=== PATIENT | male | born 1965 | race African-American/Black ===

== ENCOUNTER 2016-09-15 21:17 | Emergency (ER) | payer OTHER ==
[2016-09-15 21:22] VITALS: TEMP 97.3
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
[2016-09-16 06:15] VITALS: BP 138/77; PULSE 90; RESP 18; O2SAT 96
== END 2016-09-16 06:17 | disposition home or self-care (01) ==
DX: F10.120 Alcohol abuse with intoxication, uncomplicated (principal); F17.200 Nicotine dependence, unspecified, uncomplicated

== ENCOUNTER 2016-10-20 22:18 | Emergency (ER) | payer OTHER ==
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
[2016-10-20 22:23] VITALS: RESP 14
[2016-10-20 22:37] VITALS: BP 128/78; PULSE 70; TEMP 98.4; O2SAT 94
== END 2016-10-20 22:38 | disposition home or self-care (01) ==
DX: F10.99 Alcohol use, unspecified with unspecified alcohol-induced disorder (principal); F17.200 Nicotine dependence, unspecified, uncomplicated

== ENCOUNTER 2017-02-25 20:15 | Emergency (ER) | payer MEDICAID, OTHER ==
[2017-02-25 20:21] VITALS: TEMP 99
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
[2017-02-26 04:20] VITALS: BP 115/86; PULSE 91; RESP 16; O2SAT 94
== END 2017-02-26 04:19 | disposition home or self-care (01) ==
DX: F10.120 Alcohol abuse with intoxication, uncomplicated (principal)
CPT/HCPCS: 82947-QW

== ENCOUNTER 2017-03-04 20:43 | Emergency (ER) | payer MEDICAID ==
[2017-03-04 20:51] VITALS: BP 147/100; PULSE 102; RESP 20; TEMP 98.2; O2SAT 96
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
== END 2017-03-04 21:40 | disposition home or self-care (01) ==
LOC: EDUNIT#
DX: S80.02XA Contusion of left knee, initial encounter (principal); F17.200 Nicotine dependence, unspecified, uncomplicated; W21.11XA Struck by baseball bat, initial encounter

== ENCOUNTER 2017-05-31 17:14 | Emergency (ER) | payer OTHER, MEDICAID ==
[2017-05-31 17:22] VITALS: BP 128/77; PULSE 80; RESP 18; TEMP 98.8; O2SAT 95
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
== END 2017-05-31 17:30 | disposition home or self-care (01) ==
PROC: 0HQ0XZZ Repair Scalp Skin, External Approach (ICD-10-PCS; principal; 2017-05-31)
DX: S01.01XA Laceration without foreign body of scalp, initial encounter (principal); F10.920 Alcohol use, unspecified with intoxication, uncomplicated; F17.200 Nicotine dependence, unspecified, uncomplicated; Y04.0XXA Assault by unarmed brawl or fight, initial encounter

== ENCOUNTER 2017-08-08 06:11 | Inpatient (IN) | payer OTHER, MEDICAID ==
[2017-08-08] MEDS ORDERED: NS 500 ML IV ONE (06:30)
[2017-08-08] MEDS ORDERED: ONDANSETRON 4 MG/2 ML VIAL IVP ONE (06:30)
[2017-08-08] MEDS ORDERED: FAMOTIDINE 20 MG/NACL 50 ML IV ONE (06:30)
[2017-08-08] MEDS ORDERED: MAG HYDROX/AL HYDROX/SIMETH 30 ML UDCUP PO ONE (06:31)
[2017-08-08] MEDS ORDERED: NS 1,000 ML IV ONE (06:35)
--- NOTE | 2017-08-08 06:35 | EDPHY ---
H & P Stated Complaint: EPIGASTRIC PAIN INCREASED WITH SWALLOWING AFTER DRINKING 4 BEERS 2 DAYS AGO Source: Patient Exam Limitations: No limitations - Personal History Current Tetanus/Diphtheria Vaccine: Yes Current Tetanus Diphtheria and Acellular Pertussis (TDAP): Yes Tetanus Vaccine Date: 2011 - Medical/Surgical History Hx Asthma: No Hx Chronic Respiratory Disease: No Hx Diabetes: No Hx Cardiac Disease: No Hx Renal Disease: No Hx Cirrhosis: No Hx Alcoholism: Yes Hx HIV/AIDS: No Hx Splenectomy or Spleen Trauma: No Other PMH: PMHx: alcoholism, w/d seizures , DVT, GERD, thought disorder, ECT. PSHx: ACL tear, 2 LUMBAR DISCS REMOVED, R T/F fracture - Social History Smoking Status: Light smoker Time Seen by Provider: 08/08/17 06:24 HPI/ROS: HPI The patient presents with epigastric abdominal pain has been present for the last 2 days and began after drinking multiple beers. He says he has not had a drink in about 3 months and his pain started shortly after this. The pain is a throbbing sensation which radiates toward his sternum and is worse when lying down, swallowing, coughing. He took Pepto-Bismol without any improvement in his symptoms. He does not have any nausea or vomiting. He does not have any dark or bloody stools. REVIEW OF SYSTEMS Constitutional: No fever, no chills. Eyes: No discharge. ENT: No sore throat. Cardiovascular: No chest pain, no palpitations. Respiratory: No cough, no shortness of breath. Gastrointestinal: See HPI Genitourinary: No hematuria. Musculoskeletal: No back pain. Skin: No rashes. Neurological: No headache. PMHx: History of GERD Soc Hx: History of alcohol use PHYSICAL General Appearance: Alert, no distress Eyes: Pupils equal and round no pallor or injection ENT, Mouth: Mucous membranes moist Respiratory: There are no retractions, lungs are clear to auscultation Cardiovascular: Regular rate and rhythm Gastrointestinal: Abdomen is soft with epigastric tenderness, no masses, bowel sounds normal Neurological: A&O, moves all extremities Skin: Warm and dry, no rashes Musculoskeletal: Neck is supple non tender Extremities: symmetrical, full range of motion Psychiatric: Patient is oriented X 3, there is no agitation (Riguzzi,Halima) Constitutional: Initial Vital Signs Temperature (C) 36.7 C 08/08/17 06:13 Heart Rate 133 H 08/08/17 06:13 Respiratory Rate 18 08/08/17 06:13 Blood Pressure 120/100 H 08/08/17 06:13 O2 Sat (%) 97 08/08/17 06:13 O2 Delivery Mode Room Air Allergies/Adverse Reactions: Sulfa (Sulfonamide Antibiotics) Allergy (Unknown, Verified 08/08/17 06:16) Rash tetracycline [Tetracycline] Allergy (Unknown, Verified 08/08/17 06:16) Rash melon Allergy (Verified 08/08/17 06:16) Tingling of mouth/throat watermelon Allergy (Verified 08/08/17 06:16) Tingling of mouth/throat Home Medications: Medication Instructions Recorded Metoprolol Succinate Xr [Toprol Xl 50 mg PO DAILY 02/15/16 50 mg (*)] Amitriptyline HCl [Elavil 50 mg 50 mg PO HS 08/08/17 (*)] Aspirin [Aspirin 81mg (*)] 81 mg PO DAILY 08/08/17 FLUoxetine [Prozac 20 MG (*)] 20 mg PO DAILY 08/08/17 Tamsulosin HCl [Flomax 0.4 MG (*)] 0.4 mg PO DAILY 08/08/17 hydrOXYzine HCL [hydrOXYzine HCL 25 mg PO BID 08/08/17 (RX)] Medical Decision Making - Diagnostics Imaging Results: Imaging Impressions Chest X-Ray 08/08/17 06:24 Impression: Elevation of the left diaphragm, slightly more pronounced than on comparison exam, and left greater than right airspace opacities which may represent atelectasis. Chest/Thorax CTA 08/08/17 08:15 Impression: 1. No definite pulmonary thromboemboli. 2. Patchy bilateral lower lobe and lingular acute pneumonia. 3. No pleural effusion or pneumothorax. 4. Moderate hiatal hernia. Consider follow up upper endoscopy. Findings and recommendations discussed with Emergency Department physician, Marisa Joseph, at 0922 hours on August 08, 2017. Final report concurs with initial preliminary interpretation. A test result has been communicated to a licensed care provider and documented in the [employer] Critical Result system on 08/08/2017 9:22, Message ID [id number]. ED Course/Re-evaluation: 730: The patient is signed out to me at change of shift by Dr. Cavazos. I reviewed the patient's laboratory studies. His white count was 10. His hematocrit was normal. LFTs and lipase normal. The patient's troponin was negative. Chest x-ray: No pneumothorax. Normal mediastinum. No pneumomediastinum. 805: I when re-evaluated the patient. Of note, when I came in the room his heart rate was 125. The patient appeared fairly uncomfortable. He states he continues to have epigastric pain. It is worse when he swallows. On exam he had clear breath sounds bilaterally with epigastric tenderness to palpation. No rebound or guarding. Based on the patient's presentation, ongoing tachycardia, and physical exam findings I feel the patient needs observation. He was given a repeat dose of pain medication. I have considered alcohol withdrawal. The patient has no tremor or tongue lag. However, the patient is tachycardic and reports drinking alcohol. He will be given Ativan 1 mg IV. I was concerned with his tachycardia and epigastric pain. A CT with IV contrast was ordered. I discussed the case with the hospitalist service. Patient will be admitted by Dr. Mrecado. They will consult GI if needed. I discussed this plan with the patient. I answered all his questions. 932: CT angio chest: Please refer the dictated report by Dr. Lemus. The patient has a lingular infiltrate. There is also bilateral lower lobe infiltrates. Patient has a moderate hiatal hernia. Based on these findings I paged the hospitalist service to update them on the patient's condition. Patient has been noted to be tachycardic while here. A lactic acid was ordered. Blood cultures were ordered. The patient was given Levaquin 750 mg IV. Patient was given additional normal saline 500 mL IV. I discussed the findings with the patient. I answered all his questions. ( Marisa Joseph) Differential Diagnosis: This is a 51-year-old male with history of GERD who presents epigastric pain which radiates toward his sternum for the last 2 days after drinking several beers. Differential diagnosis includes ACS, gastritis, GERD, pancreatitis. In the emergency department, basic labs were ordered for the patient. He was given IV fluids and GI cocktail, famotidine, Zofran. The patient's labs were relatively unremarkable, showing mild dehydration, troponin is pending at change of shift. He is feeling some better after receiving medications. He still tachycardic at about 115. He does not have any hand tremor and says he had 4 beers only. He does not appear to be in alcohol withdrawal. Anticipate he will be able to be discharged home when his symptoms resolved. The case signed out to the oncoming provider Dr. Joseph pending reassessment. ( Halima Cavazos) - Data Points Laboratory Results: Laboratory Results 08/08/17 06:40 08/08/17 06:40 08/08/17 08/08/17 06:40 06:40 WBC 15.20 10^3/uL H 10^3/uL (3.80-9.50) RBC 5.64 10^6/uL 10^6/uL (4.40-6.38) Hgb 17.7 g/dL H g/dL (13.7-17.5) Hct 48.7 % % (40.0-51.0) MCV 86.3 fL fL (81.5-99.8) MCH 31.4 pg pg (27.9-34.1) MCHC 36.3 g/dL g/dL (32.4-36.7) RDW 12.3 % % (11.5-15.2) Plt Count 300 10^3/uL 10^3/uL (150-400) MPV 10.0 fL fL (8.7-11.7) Neut % (Auto) 72.2 % % (39.3-74.2) Lymph % (Auto) 19.8 % % (15.0-45.0) [place] % (Auto) 7.0 % % (4.5-13.0) Eos % (Auto) 0.3 % L % (0.6-7.6) Baso % (Auto) 0.3 % % (0.3-1.7) Nucleat RBC Rel Count 0.0 % % (0.0-0.2) Absolute Neuts (auto) 10.97 10^3/uL H 10^3/uL (1.70-6.50) Absolute Lymphs (auto) 3.01 10^3/uL H 10^3/uL (1.00-3.00) Absolute Monos (auto) 1.07 10^3/uL H 10^3/uL (0.30-0.80) Absolute Eos (auto) 0.05 10^3/uL 10^3/uL (0.03-0.40) Absolute Basos (auto) 0.04 10^3/uL 10^3/uL (0.02-0.10) Absolute Nucleated RBC 0.00 10^3/uL 10^3/uL (0-0.01) Immature Gran % 0.4 % % (0.0-1.1) Immature Gran # 0.06 10^3/uL 10^3/uL (0.00-0.10) Sodium 139 mEq/L mEq/L (134-144) Potassium 4.1 mEq/L mEq/L (3.5-5.2) Chloride 104 mEq/L mEq/L (97-110) Carbon Dioxide 21 mEq/l L mEq/l (22-31) Anion Gap 14 mEq/L mEq/L (8-16) BUN 9 mg/dL mg/dL (7-23) Creatinine 1.1 mg/dL mg/dL (0.7-1.3) Estimated GFR > 60 Glucose 122 mg/dL H mg/dL (70-100) Calcium 9.4 mg/dL mg/dL (8.5-10.4) Troponin I 0.014 ng/mL ng/mL (0.000-0.034) Lipase 60 IU/L IU/L (23-300) Medications Given: Discontinued Medications Al Hydroxide/Mg Hydroxide (Maalox Susp) 30 ml PO EDNOW ONE Stop: 08/08/17 06:32 Last Admin: 08/08/17 06:50 Dose: 30 ml Dicyclomine HCl (Bentyl) 20 mg PO EDNOW ONE Stop: 08/08/17 07:22 Last Admin: 08/08/17 07:26 Dose: 20 mg Sodium Chloride (Ns) 500 mls @ 1,000 mls/hr IV EDNOW ONE PRN Reason: Protocol Stop: 08/08/17 06:59 Last Admin: 08/08/17 07:00 Dose: Not Given Famotidine/Sodium Chloride (Pepcid 20 Mg (Premix)) 50 mls @ 200 mls/hr IV EDNOW ONE Stop: 08/08/17 06:44 Last Admin: 08/08/17 06:50 Dose: 50 mls Sodium Chloride (Ns) 1,000 mls @ 0 mls/hr IV EDNOW ONE; Wide Open PRN Reason: Protocol Stop: 08/08/17 06:36 Last Admin: 08/08/17 06:51 Dose: 1,000 mls Lorazepam (Ativan Injection) 1 mg IVP EDNOW ONE Stop: 08/08/17 06:38 Last Admin: 08/08/17 06:50 Dose: 1 mg Lorazepam (Ativan Injection) 1 mg IVP EDNOW ONE Stop: 08/08/17 08:20 Last Admin: 08/08/17 08:26 Dose: 1 mg Morphine Sulfate (Morphine) 4 mg IVP EDNOW ONE Stop: 08/08/17 08:19 Last Admin: 08/08/17 08:26 Dose: 4 mg Ondansetron HCl (Zofran) 4 mg IVP EDNOW ONE Stop: 08/08/17 06:31 Last Admin: 08/08/17 06:50 Dose: 4 mg Departure - Departure Clinical Impression: Abdominal pain, Dyspepsia, Tachycardia, Epigastric pain Pneumonia Qualifiers: Pneumonia type: due to unspecified organism Laterality: left Condition: Good
[2017-08-08] MEDS ORDERED: LORazepam 2 MG/ML INJ IVP ONE ×2 (06:37→08:19)
[2017-08-08 06:49] LABS: % IMMATURE GRANULYOCYTES 0.4 % (0.0-1.1); ABSOLUTE IMMATURE GRANULOCYTES 0.06 10^3/uL (0.00-0.10); ADD DIFF? NO; ADD MORPH? NO; ADD SCAN? NO; ATYPICAL LYMPHOCYTE FLAG 0 (0-99); FRAGMENT RBC FLAG 0 (0-99); HEMATOCRIT 48.7 % (40.0-51.0); HEMOGLOBIN 17.7 g/dL (13.7-17.5); LEFT SHIFT FLG 0 (0-99); LIPEMIA HEMOLYSIS FLAG 90 (0-99); MEAN CELL HEMOGLOBIN 31.4 pg (27.9-34.1); MEAN CELL HEMOGLOBIN CONCENTR. 36.3 g/dL (32.4-36.7); MEAN CELL VOLUME 86.3 fL (81.5-99.8); PLATELET CLUMPS FLAG 0 (0-99); PLATELET COUNT 300 10^3/uL (150-400); RED BLOOD CELL COUNT 5.64 10^6/uL (4.40-6.38); RED CELL DISTRIBUTION WIDTH 12.3 % (11.5-15.2)
[2017-08-08 07:08] LABS: ANION GAP 14 mEq/L (8-16); CALCIUM 9.4 mg/dL (8.5-10.4); CARBON DIOXIDE 21 mEq/l (22-31); CHLORIDE 104 mEq/L (97-110); CREATININE 1.1 mg/dL (0.7-1.3); GLOMERULAR FILTRATION RATE > 60; GLUCOSE 122 mg/dL (70-100); POTASSIUM 4.1 mEq/L (3.5-5.2); SODIUM 139 mEq/L (134-144)
[2017-08-08 07:20] LABS: TROPONIN I 0.014 ng/mL (0.000-0.034)
[2017-08-08] MEDS ORDERED: DICYCLOMINE 10 MG CAP PO ONE (07:21)
--- NOTE | 2017-08-08 07:38 | CPEKG ---
Heart Rate: 133 RR Interval: 451 P-R Interval: 82 QRSD Interval: 86 QT Interval: 316 QTC Interval: 471 P [place]: 0 QRS [place]: 100 T Wave [place]: 41 EKG Severity - ABNORMAL ECG - EKG Impression: SINUS TACHYCARDIA EKG Impression: LEFT ATRIAL ABNORMALITY EKG Impression: RIGHT AXIS DEVIATION Electronically Signed By: Halima Cavazos 08-Aug-2017 07:40:14
[2017-08-08] MEDS ORDERED: IOPAMIDOL (ISOVUE 370) 100 ML BTL IV ONE (08:37)
[2017-08-08] MEDS ORDERED: ONDANSETRON 4 MG/2 ML VIAL IVP PRN (11:56)
[2017-08-08] MEDS ORDERED: ONDANSETRON DISINTEGRATING 4 MG TAB PO PRN (11:56)
[2017-08-08] MEDS ORDERED: ZOLPIDEM TARTRATE 5 MG TAB PO PRN (11:56)
[2017-08-08] MEDS: PANTOPRAZOLE SODIUM 40 MG VIAL IVP SCH ×2 (12:27→22:02)
[2017-08-08] MEDS: NS 1,000 ML IV SCH ×2 (12:27→22:01)
[2017-08-08] MEDS: METOPROLOL SUCCINATE XR 50 MG TAB PO SCH (12:29)
[2017-08-08] MEDS: FLUoxetine 20 MG CAP PO SCH (12:29)
[2017-08-08] MEDS: HYDROmorphONE/DILAUDID 1 MG/ML INJ IVP PRN (12:40)
--- NOTE | 2017-08-08 13:42 | PDGENHP ---
History and Physical History and Physical: CC: Epigastric pain HISTORY: This patient with a long history of intermittent reflux esophageal heartburn states that around 3 days ago he went for a long run and afterwards he drank 4 beers in rapid succession. Later that night he had onset of severe epigastric pain which is persistent now in getting worse, and is aggravated with swallowing of any food or liquid. The pain is felt in the epigastrium and comes up into the low substernal area and is felt as a burning and sharp pain. There is no cough, shortness of breath, angina-like component, back pain, nausea or vomiting, fever, leg pain or swelling. He is not using any acid reducing medicine. In the past he has found that antacids are somewhat helpful with his recurrent heartburn symptoms. In the ER there was concern about PE saw the patient has CT scan that was negative for PE. The CT scan does show a hiatal hernia. Also the CT scan shows some alveolar density in the dependent portions of both lungs. ROS: The patient mentions that 2 days ago during urination while standing he became lightheaded. He was concerned it might be caused by his blood pressure medicine so he stopped taking his beta-shannan and DEBBIE-inhibitor at that time. 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 Smokes occasional cigarettes and occasional marijuana. Intermittent heavy drinking. No street drugs or IV drug use. MEDICATIONS: The patients list has been reconciled by our clinical pharmacist in the EMR. I have reviewed the list and ordered appropriate medicines. PHYSICAL EXAMINATION: Vital Signs: Tachycardic with pulse 115+/-, sinus rhythm on monitor, stable blood pressure respirations and no fever Medical Billing Manager: Sinus tachycardia Examination: General: alert, oriented, good mentation, appears quite uncomfortable Skin: warm, dry, good color, no rash HEENT: normal Neck: no mass or jvd Resps: relaxed Lungs: clear breath sounds though his respirations are shallow and inhibited by an increase in his epigastric pain with inspiration Heart: regular, no murmur Abdomen: soft, nondistended, nontender, +BS, no mass Upper Extremities: normal Lower Extremities: no edema, warm No Bleeding or bruising Neurologic: normal speech/language, 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 There is some alveolar density in dependent portions of the lungs that are most suggestive to me of atelectasis. There are no air bronchograms or other specific features to suggest pneumonia. There is presence of a hiatal hernia. 12 LEAD EKG: My personal interpretation of the tracing: Sinus tachycardia, right axis deviation otherwise no abnormalities ASSESSMENT: -severe epigastric and low substernal pain with swallowing # I believe this is most likely due to a severe acute esophagitis or esophageal ulceration, most likely peptic in etiology but should be assessed further -tachycardia, sinus # I suspect this is primarily caused by a beta-shannan rebound since he stopped his metoprolol 2 days ago, aggravated by his degree of pain -chronic intermittent alcohol abuse # most likely at low risk of withdrawal but will follow closely # some risk of thiamine deficiency -prior history of provoked DVT, at least moderately high risk of recurrent DVT here in the setting -a diagnosis of pneumonia was considered in the emergency room and the patient was given a dose of Levaquin; at this time I do not think the patient has pneumonia PLANS: -IV twice daily proton pump inhibitor -4 times daily Carafate -will consult Gastroenterology to see the patient -at this time my suspicion for pneumonia is quite low and I will not continue antibiotics and less something changes to make me of higher suspicion for this. I have ordered a procalcitonin and respiratory pathogen panel; given the presentation I think a negative test for either of these would be more helpful than a positive test particularly the procalcitonin I have reviewed the patient's case in detail with Dr. Joseph I have reviewed the patient's past medical records as part of this assessment, including previous hospital admission records
[2017-08-08] MEDS: SUCRALFATE 1 GM/10 ML UDCUP PO SCH ×3 (14:41→21:59)
--- NOTE | 2017-08-08 14:41 | ASMTCMCOM ---
CM Note CM Note Notes: 08/08/2017 Case Management Note Met w/pt. Pt reports recent stay in care home for approximately 3 months. Reports "bonded out 2 or 3 days ago", ran to a gas station, drank a 4 beers "to get in the right mind set to sleep" and experienced epigastric pain. Bought Pepto Bismol the next day and consumed half a bottle and came to the ED. Pt reports a court date of . When asked about housing at d/c pt offered that he wanted to move to [facility] near his sister Stefania. He did not have her phone number and has not been in contact with her since prior to his recent time in care home. He is . Pt requested information on alcohol resident treatment centers. Provided info on centers that accept Medicaid. 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 Pt also planned for a stay in SNF rehab d/t possible surgery. Informed pt that PT needs to evaluate to ascertain if that level of care is required. Pt has Medicaid and will need a ULTC 100 and commit to a 30 day stay if SNF level of care is necessary. Pt reports history of Bipolar and Schizophrenia. Pt unable to recall name of psychiatrist or counselor but offerred that he goes to the [facility] for medications. Case Management d/c poc: To the homeless care home with information for inpt drug rehab and [facility]. Case Management to follow for further needs. Date Signed: 08/08/2017 02:41 PM Electronically Signed By:Sara Ferris RN
--- NOTE | 2017-08-08 14:53 | PDMN ---
Medical Necessity Medical necessity: Pt meets IP criteria per MD; est los >2 mn for eval/tx of severe epigastric & low substernal pain w/swallowing & tachycardia, admit for IV proton pump inhibitors & GI consult; hx esophageal reflux & heartburn, seizure disorder, DVTs & chronic cognitive/memory deficits; per H&P & order
[2017-08-08] MEDS: AMITRIPTYLINE HCL 50 MG TAB PO SCH (21:59)
[2017-08-09 04:33] LABS: % IMMATURE GRANULYOCYTES 0.2 % (0.0-1.1); ABSOLUTE IMMATURE GRANULOCYTES 0.02 10^3/uL (0.00-0.10); ADD DIFF? NO; ADD MORPH? NO; ADD SCAN? NO; ANION GAP 9 mEq/L (8-16); ATYPICAL LYMPHOCYTE FLAG 0 (0-99); CALCIUM 8.3 mg/dL (8.5-10.4); CARBON DIOXIDE 24 mEq/l (22-31); CHLORIDE 105 mEq/L (97-110); CREATININE 1.1 mg/dL (0.7-1.3); FRAGMENT RBC FLAG 0 (0-99); GLOMERULAR FILTRATION RATE > 60; GLUCOSE 87 mg/dL (70-100); HEMATOCRIT 36.5 % (40.0-51.0); HEMOGLOBIN 12.8 g/dL (13.7-17.5); LEFT SHIFT FLG 0 (0-99); LIPEMIA HEMOLYSIS FLAG 90 (0-99); MEAN CELL HEMOGLOBIN 31.3 pg (27.9-34.1); MEAN CELL HEMOGLOBIN CONCENTR. 35.1 g/dL (32.4-36.7); MEAN CELL VOLUME 89.2 fL (81.5-99.8); MEAN PLATELET VOLUME 10.6 fL (8.7-11.7); PLATELET CLUMPS FLAG 0 (0-99); PLATELET COUNT 213 10^3/uL (150-400); POTASSIUM 3.8 mEq/L (3.5-5.2); RED BLOOD CELL COUNT 4.09 10^6/uL (4.40-6.38); RED CELL DISTRIBUTION WIDTH 12.7 % (11.5-15.2); SODIUM 138 mEq/L (134-144)
[2017-08-09] MEDS: PANTOPRAZOLE SODIUM 40 MG VIAL IVP SCH ×2 (08:57→20:24)
[2017-08-09] MEDS: LIDOCAINE 2% VISCOUS 15 ML UDCUP PO PRN ×3 (08:57→23:52)
[2017-08-09] MEDS: ENOXAPARIN 40 MG/0.4 ML SYR SC SCH (08:57)
[2017-08-09] MEDS: SUCRALFATE 1 GM/10 ML UDCUP PO SCH ×4 (09:37→20:24)
[2017-08-09] MEDS: FLUoxetine 20 MG CAP PO SCH (09:38)
[2017-08-09] MEDS: METOPROLOL SUCCINATE XR 50 MG TAB PO SCH (09:38)
[2017-08-09] MEDS: TAMSULOSIN HCL 0.4 MG CAP PO SCH (09:38)
[2017-08-09] MEDS ORDERED: PNEUMOCOCCAL 0.5ML VACCINE VIAL IM ONE (09:40)
--- NOTE | 2017-08-09 10:39 | HOSPPROG ---
Hospitalist Progress Note Assessment/Plan: DIAGNOSES: -severe epigastric and low substernal pain with swallowing # I believe this is most likely due to a severe acute esophagitis or esophageal ulceration, most likely peptic in etiology but should be assessed further -tachycardia, sinus # likely rebound from not taking beta-shannan for 2 days, now resolved back on his metoprolol -chronic intermittent alcohol abuse # no signs of withdrawal yet and seems at low risk of withdrawal but will follow closely # some risk of thiamine deficiency -prior history of provoked DVT, at least moderately high risk of recurrent DVT here in the setting -a diagnosis of pneumonia was considered in the emergency room and the patient was given a dose of Levaquin; at this time I do not think the patient has pneumonia PLANS: -continue twice daily proton pump inhibitor and 4 times daily Carafate, continue clear liquids diet and I did emphasize with the patient the importance of this -he did not get any of his ordered lidocaine yesterday so will try this to see if he gets any improvement in symptoms -will review again with Gastroenterology, since he still having severe pain would again consider either barium study or endoscopy -continue to follow for any potential signs of alcohol withdrawal -thiamin replacement SUBJECTIVE: Patient still having severe pain with any swallowing of liquids. He also ate some chips overnight against my direction and says this aggravated things quite a bit. No new symptoms, no dyspnea, no fever symptoms, no vomiting OBJECTIVE Vitals reviewed: Tachycardia has resolved otherwise stable without fever Clipper Machine, my review: Sinus rhythm normal range Exam: alert oriented still looks mildly anxious and quite uncomfortable skin warm dry color ok resps not labored lungs clear BSs heart regular abd soft nondistended nontender, bowel sounds present limbs warm, no edema iv site ok Laboratory data: White blood cell count notably better today still little bit high CBC otherwise unremarkable Procalcitonin in normal range Blood sugar better chemistry unremarkable No organisms identified on respiratory pathogen panel PCR Objective: Vital Signs Temp Pulse Resp BP Pulse Ox 37.2 C 83 17 107/65 89 L 08/09/17 07:59 08/09/17 07:59 08/09/17 07:59 08/09/17 07:59 08/09/17 07:59 Laboratory Results 08/09/17 03:16 08/09/17 03:16 08/08/17 08/09/17 08/10/17 06:59 06:59 06:59 Intake Total 4100 Output Total 400 250 Balance 3700 -250 - Time Spent With Patient Time Spent with Patient: greater than 35 minutes Time Spent with Patient: Greater than 35 minutes spent on this patients care, greater than 50% of time spent counseling, educating, and coordinating care regarding the above mentioned plan. ICD10 Worksheet Patient Problems: Problems Problem Status Onset Abdominal pain Acute Dyspepsia Acute Epigastric pain Acute Pneumonia Acute Tachycardia Acute Alcohol use Acute Alcoholic intoxication Acute Ankle fracture Acute Contusion of left knee Acute Severe major depression Acute
[2017-08-09] MEDS: HYDROmorphONE/DILAUDID 1 MG/ML INJ IVP PRN ×2 (12:41→18:17)
--- NOTE | 2017-08-09 13:24 | ASMTCMCOM ---
CM Note CM Note Notes: CM received a call from [facility]. CM scheduled a follow up appointment w/ his primary care doctor. CM inputted info in discharge section of [facility]. CM available for d/c needs. Plan: Independent Date Signed: 08/09/2017 01:23 PM Electronically Signed By:SHARLENE Pineda
[2017-08-09] MEDS: ACETAMINOPHEN 325 MG TAB PO PRN ×2 (17:30→21:20)
[2017-08-09] MEDS: AMITRIPTYLINE HCL 50 MG TAB PO SCH (20:24)
[2017-08-09] MEDS: NS 1,000 ML IV SCH (23:52)
[2017-08-10 04:16] LABS: % IMMATURE GRANULYOCYTES 0.1 % (0.0-1.1); ABSOLUTE IMMATURE GRANULOCYTES 0.01 10^3/uL (0.00-0.10); ADD DIFF? NO; ADD MORPH? NO; ADD SCAN? NO; ATYPICAL LYMPHOCYTE FLAG 0 (0-99); FRAGMENT RBC FLAG 0 (0-99); HEMATOCRIT 35.3 % (40.0-51.0); HEMOGLOBIN 12.3 g/dL (13.7-17.5); LEFT SHIFT FLG 0 (0-99); LIPEMIA HEMOLYSIS FLAG 90 (0-99); MEAN CELL HEMOGLOBIN 31.1 pg (27.9-34.1); MEAN CELL HEMOGLOBIN CONCENTR. 34.8 g/dL (32.4-36.7); MEAN CELL VOLUME 89.1 fL (81.5-99.8); MEAN PLATELET VOLUME 10.4 fL (8.7-11.7); PLATELET CLUMPS FLAG 0 (0-99); PLATELET COUNT 175 10^3/uL (150-400); RED BLOOD CELL COUNT 3.96 10^6/uL (4.40-6.38); RED CELL DISTRIBUTION WIDTH 12.3 % (11.5-15.2)
[2017-08-10] MEDS: SUCRALFATE 1 GM/10 ML UDCUP PO SCH ×4 (08:54→19:54)
[2017-08-10] MEDS: PANTOPRAZOLE SODIUM 40 MG VIAL IVP SCH (08:54)
[2017-08-10] MEDS: ENOXAPARIN 40 MG/0.4 ML SYR SC SCH (08:55)
[2017-08-10] MEDS: FLUoxetine 20 MG CAP PO SCH (08:55)
[2017-08-10] MEDS: TAMSULOSIN HCL 0.4 MG CAP PO SCH (08:55)
[2017-08-10] MEDS: METOPROLOL SUCCINATE XR 50 MG TAB PO SCH (08:55)
[2017-08-10] MEDS: NS 1,000 ML IV SCH (08:59)
--- NOTE | 2017-08-10 09:22 | HOSPPROG ---
Hospitalist Progress Note Assessment/Plan: DIAGNOSES: -severe epigastric and low substernal pain with swallowing # I believe this is most likely due to a severe acute esophagitis or esophageal ulceration, most likely peptic in etiology but should be assessed further -tachycardia, sinus # likely rebound from not taking beta-shannan for 2 days, now resolved back on his metoprolol -chronic intermittent alcohol abuse # no signs of withdrawal yet and seems at low risk of withdrawal but will follow closely # some risk of thiamine deficiency -prior history of provoked DVT, at least moderately high risk of recurrent DVT here in the setting -a diagnosis of pneumonia was considered in the emergency room and the patient was given a dose of Levaquin; at this time I do not think the patient has pneumonia He has now been given twice daily proton pump inhibitors and 4 times daily Carafate for nearly 48 hr with no significant improvement in symptoms. The story still sounds most likely peptic to me but without improvement in her will want to take a look at his esophagus. I reviewed last night with Dr. Hart who recommended barium swallow study so I have ordered upper GI series. Will review with patient 1 study is done. PLANS: -upper GI series this morning -continue twice daily proton pump inhibitor and 4 times daily Carafate, continue clear liquids diet and I did emphasize with the patient the importance of this -thiamin replacement SUBJECTIVE: No change, still complaining of severe pain aggravated by any swelling Still no fevers, respiratory symptoms or any other symptoms that suggested different abdominal or thoracic condition OBJECTIVE Vitals reviewed: Or without fever [employer], my review: Sinus rhythm normal range Exam: alert oriented more relaxed but it appears uncomfortable skin warm dry color ok resps not labored lungs clear BSs heart regular abd soft nondistended nontender, bowel sounds present limbs warm, no edema iv site ok Objective: Vital Signs Temp Pulse Resp BP Pulse Ox 37.2 C 77 18 124/76 H 92 08/10/17 08:00 08/10/17 08:00 08/10/17 08:00 08/10/17 08:00 08/10/17 08:00 Laboratory Results 08/10/17 03:12 08/09/17 03:16 08/09/17 08/10/17 08/11/17 06:59 06:59 06:59 Intake Total 2100 1918 Output Total 400 1410 Balance 1700 508 ICD10 Worksheet Patient Problems: Problems Problem Status Onset Abdominal pain Acute Dyspepsia Acute Epigastric pain Acute Pneumonia Acute Tachycardia Acute Alcohol use Acute Alcoholic intoxication Acute Ankle fracture Acute Contusion of left knee Acute Severe major depression Acute
[2017-08-10] MEDS ORDERED: HYDROmorphone HCL/NS/PF 0.4 MG/2 ML SYR IVP PRN (10:30)
[2017-08-10] MEDS: LIDOCAINE 2% VISCOUS 15 ML UDCUP PO PRN (11:10)
[2017-08-10] MEDS: AMITRIPTYLINE HCL 50 MG TAB PO SCH (19:55)
[2017-08-10] MEDS: PANTOPRAZOLE SODIUM 40 MG TAB PO SCH (19:55)
[2017-08-11] MEDS: ENOXAPARIN 40 MG/0.4 ML SYR SC SCH (09:27)
[2017-08-11] MEDS: PANTOPRAZOLE SODIUM 40 MG TAB PO SCH ×2 (09:28→19:52)
[2017-08-11] MEDS: FLUoxetine 20 MG CAP PO SCH (09:28)
[2017-08-11] MEDS: METOPROLOL SUCCINATE XR 50 MG TAB PO SCH (09:28)
[2017-08-11] MEDS: TAMSULOSIN HCL 0.4 MG CAP PO SCH (09:28)
[2017-08-11] MEDS: SUCRALFATE 1 GM/10 ML UDCUP PO SCH (09:33)
--- NOTE | 2017-08-11 11:58 | HOSPPROG ---
Hospitalist Progress Note Assessment/Plan: 51-year-old the with intermittent out beer epigastric pain. Upper GI is notable for inflammation in the esophagus. He has had some with medication # epigastric pain likely secondary to esophagitis * Continue medication * GI consult for possible EGD given abnormal upper GI findings * NPO for now # chronic intermittent alcohol use * No signs of withdrawal # history of provoked DVT Subjective: pt continues to have epigastric pain. Patient new to or and chart reviewed. Objective: Vital Signs Temp Pulse Resp BP Pulse Ox 37.0 C 61 13 126/76 H 93 08/11/17 07:47 08/11/17 07:47 08/11/17 07:47 08/11/17 07:47 08/11/17 07:47 Laboratory Results 08/10/17 03:12 08/09/17 03:16 08/10/17 08/11/17 08/12/17 05:59 05:59 05:59 Intake Total 1918 2303 Output Total 1410 1350 450 Balance 508 953 -450 - Physical Exam Constitutional: no apparent distress, appears nourished Eyes: PERRL, anicteric sclera, EOMI Ears, Nose, Mouth, Throat: moist mucous membranes Cardiovascular: regular rate and rhythym, no murmur, rub, or gallop Respiratory: no respiratory distress, no rales or rhonchi Gastrointestinal: normoactive bowel sounds, tenderness Genitourinary: no bladder fullness Skin: warm, normal color Musculoskeletal: full muscle strength Neurologic: AAOx3 Psychiatric: interacting appropriately ICD10 Worksheet Patient Problems: Problems Problem Status Onset Ankle fracture Acute Severe major depression Acute Alcoholic intoxication Acute Alcohol use Acute Contusion of left knee Acute Abdominal pain Acute Dyspepsia Acute Tachycardia Acute Epigastric pain Acute Pneumonia Acute
--- NOTE | 2017-08-11 12:57 | SOAPPROG ---
SOAP Progress Note Assessment/Plan: Assessment:Plan: see full consult NPO at [facility] for EGD in am as had solid food at 9:30-10am today expect moderate to severe esophagitis on EGD continue PPI +/- Carafate 08/11/17 12:56 Objective: Vital Signs Temp Pulse Resp BP Pulse Ox 37.2 C 78 16 122/83 H 94 08/11/17 12:00 08/11/17 12:00 08/11/17 12:00 08/11/17 12:00 08/11/17 12:00 Laboratory Results 08/10/17 03:12 08/09/17 03:16 08/10/17 08/11/17 08/12/17 05:59 05:59 05:59 Intake Total 1918 2303 Output Total 1410 1350 450 Balance 508 603 -411 ICD10 Worksheet Patient Problems: Problems Problem Status Onset Abdominal pain Acute Dyspepsia Acute Epigastric pain Acute Pneumonia Acute Tachycardia Acute Alcohol use Acute Alcoholic intoxication Acute Ankle fracture Acute Contusion of left knee Acute Severe major depression Acute
--- NOTE | 2017-08-11 13:05 | GCON ---
[f rep st] CONSULTATION DATE OF CONSULTATION: 08/11/2017 REFERRING PHYSICIAN: Karla Milligan MD INDICATION FOR CONSULTATION: Odynophagia, abnormal upper GI series. HISTORY OF PRESENT ILLNESS: The patient is a pleasant 51-year-old male with medical history significant for esophageal reflux and heartburn. He also has PTSD, alcohol abuse, and memory deficits related to ECT for mental health disorder. He was in his usual state of health until approximately 5 days ago, when he went for a run of approximately 3 miles, afterwards he stopped at a gas station, bought four 3.2 beers, and then after he drank them, he lied down pretty quickly. In the middle of the night. He woke up with significant subxiphoid epigastric discomfort that continued and was worse with any p.o. intake. This continued for a few days until he presented to the emergency room on August 08. He was admitted for the above. An upper GI series was performed and showed what looked like to be a significant esophagitis. He is slowly improving, but still with odynophagia. He does have a history of longstanding reflux, for which he was on omeprazole. He ended up in penitentiary for a number of months and his omeprazole was stopped. He did have reflux symptoms during that time, but none were as severe as he is experiencing now. He does not have any weight loss. There is no family history of GI malignancies to his knowledge. He has not had a previous EGD. He is now here for evaluation and treatment of the above, and I am called to help in that regard. PAST MEDICAL HISTORY: Esophageal reflux, chronic cognitive memory deficits, alcohol abuse, seizure disorder, tib-fib fracture, PTSD. PAST SURGICAL HISTORY: Tib-fib fracture, new ACL. He has had L4-L5 operated on. MEDICATIONS: At home included Prozac, some PTSD medication, he is not sure of, and he has been off PPI for a number of months. In hospital, he is written for Tylenol p.r.n., Elavil 50 mg at q.h.s., Lovenox subcu daily, Prozac 20 mg daily , hydromorphone p.r.n., lidocaine p.o. p.r.n., metoprolol 50 mg daily, Zofran p.r.n., Protonix 40 mg p.o. b.i.d., Carafate 1 g q.a.c., h.s., Flomax 0.5 mg daily, Ambien 5-10 mg p.o. q.h.s. p.r.n. ALLERGIES: Sulfa, causes a rash. Tetracycline, causes a rash. Niacin, causes a rash. SOCIAL HISTORY: He does smoke a couple cigarettes a day. He has intermittent heavy drinking. He does not do any IV drugs. FAMILY HISTORY: Significant for breast cancer in a grandparent. No GI malignancies to his knowledge. REVIEW OF SYSTEMS: A complete review of systems was performed and is negative other than in the HPI. PHYSICAL EXAM: GENERAL: Well developed, well nourished, no acute distress. VITAL SIGNS: Today, 122/83, pulse is 78, respirations are 16, he is 94% on room air. HEENT: Eyes anicteric. KRISTIE, EOMI. Mouth: No lesions. Moist membranes. NECK: Supple. Full range of motion. No JVD. BACK: No spine tenderness. No CVA tenderness. LUNGS: Clear to auscultation. CARDIAC: S1, S2. Regular rate and rhythm. No murmurs, rubs or gallops appreciated. ABDOMEN: Bowel sounds are normal in pitch and frequency. Abdomen is soft with some mild epigastric discomfort. No rebound or guarding. No hepatosplenomegaly. EXTREMITIES: No cyanosis, clubbing, or edema. NEUROLOGIC: Cranial nerves intact, nonfocal. SKIN: No stigmata of advanced liver disease, no rashes. LABORATORY DATA: From August 10: WBC 7.0, hemoglobin 12.3, hematocrit 35.3 , MCV is 89.1, RDW 12.3, platelet count is 175. From August 09: Sodium 138 , potassium 3.8, chloride 105, bicarb 24, BUN 10, creatinine 1.1, glucose 87, calcium 8.3. From 08/08: Troponin was negative. Lipase was 60, which is normal. An upper GI series performed August 10, revealed abnormal appearance of the distal thoracic esophagus above the GE junction, where a small hiatal hernia and intermittent reflux was observed. There is mucosal ulceration, suggestion of esophagitis. Johnson's or early neoplastic changes cannot be excluded. Findings suggestive of mild concurrent gastritis. ASSESSMENT: 1. Odynophagia. 2. Heartburn, reflux. 3. Abnormal upper GI series. 4. History of posttraumatic stress disorder. Psychiatric disturbance. RECOMMENDATIONS: 1. EGD with anesthesia for evaluation of above. 2. Continue PPI b.i.d. 3. Anti-reflux lifestyle changes. 4. Further recommendations to follow results of above and clinical course. If there is no evidence of Johnson's esophagitis. Recommend medication __ to help control this symptoms. If there is evidence of Johnson's esophagitis and the PPI long-term would be recommended with surveillance. I may recommend a repeat EGD in 3 months to follow up healing, depending on the severity of the esophagitis at the time of EGD. Thank you for allowing me to participate in the patient's healthcare. Do not hesitate to call me with any questions. /[id number]/MODL MTDD
[2017-08-11] MEDS: AMITRIPTYLINE HCL 50 MG TAB PO SCH (19:52)
[2017-08-11] MEDS: LIDOCAINE 2% VISCOUS 15 ML UDCUP PO PRN (20:11)
[2017-08-12] MEDS ORDERED: PROPOFOL 200 MG/20 ML VIAL ONE ×2 (08:40)
--- NOTE | 2017-08-12 08:59 | POSTOPPROG ---
Post Op Note Date of Operation: 08/12/17 Surgeon: Renny Fontenot Anesthesiologist: Alberto Arroyo Anesthesia: Other (Specify) (IV general) Pre-op Diagnosis: esophagitis, odynophagia Post-op Diagnosis: esophagitis, gastritis, duodenitis Indication: odynophagia, abnml UGI series Procedure: EGD and bx Findings: severe esophagitis, mild gastritis and duodentitis, gastric inlet patch Inf/Abcess present in the surg proc area at time of surgery?: No EBL: Minimal (few ml from bx) Total fluids administered: 300 ml LR Complications: none immediate
[2017-08-12] MEDS ORDERED: fentaNYL 100 MCG/2 ML INJ IVP PRN (09:07)
[2017-08-12] MEDS ORDERED: NALOXONE HCL 0.4 MG/ML INJ IVP PRN (09:07)
--- NOTE | 2017-08-12 09:07 | PDANEPAE ---
ANE Past Medical History - Cardiovascular History Hx Hypertension: Yes Hx Arrhythmias: No Hx Chest Pain: No Hx Coronary Artery / Peripheral Vascular Disease: Yes Hx CHF / Valvular Disease: No Hx Palpitations: Yes Cardiovascular History Comment: PALPITATION NOT REGULARLY - Pulmonary History Hx COPD: Yes Hx Asthma/Reactive Airway Disease: No Hx Recent Upper Respiratory Infection: No Hx Oxygen in Use at Home: No Hx Sleep Apnea: Yes Sleep Apnea Screening Result - Last Documented: Positive Pulmonary History Comment: BRADY DX 2010 - Neurologic History Hx Cerebrovascular Accident: No Hx Seizures: Yes Hx Dementia: No - Endocrine History Hx Diabetes: No - Renal History Hx Renal Disorders: No - Liver History Hx Hepatic Disorders: No - Neurological & Psychiatric Hx Hx Neurological and Psychiatric Disorders: Yes Neurological / Psychiatric History Comment: BIPOLAR. PSYCHOSIS. MAJOR DEPRESSIVE DISORDER - Cancer History Hx Cancer: No - Congenital Disorder History Hx Congenital Disorders: No - GI History Hx Gastrointestinal Disorders: Yes - Other Health History Other Health History: DVT ASSOCIATED WITH FX RT TIB/FIB 03/2015. FACIAL HYPER PIGMENTATION - Chronic Pain History Chronic Pain: Yes (rt ankle) - Surgical History Prior Surgeries: LUMBAR FUSION. RT ANKLE ORIF 03/2015. REMVL LIPOMA FROM SHLDR. ECT TREATMENTS ANE Review of Systems Review of Systems: ANE Patient History - Allergies Allergies/Adverse Reactions: Sulfa (Sulfonamide Antibiotics) Allergy (Unknown, Verified 08/08/17 06:16) Rash tetracycline [Tetracycline] Allergy (Unknown, Verified 08/08/17 06:16) Rash melon Allergy (Verified 08/08/17 06:16) Tingling of mouth/throat watermelon Allergy (Verified 08/08/17 06:16) Tingling of mouth/throat - Home Medications Home Medications: Metoprolol Succinate Xr [Toprol Xl 50 mg (*)] 50 mg PO DAILY 02/15/16 [Last Taken 08/06/17] Amitriptyline HCl [Elavil 50 mg (*)] 50 mg PO HS 08/08/17 [Last Taken 08/06/17] Aspirin [Aspirin 81mg (*)] 81 mg PO DAILY 08/08/17 [Last Taken 08/06/17] FLUoxetine [Prozac 20 MG (*)] 20 mg PO DAILY 08/08/17 [Last Taken 08/06/17] Tamsulosin HCl [Flomax 0.4 MG (*)] 0.4 mg PO DAILY 08/08/17 [Last Taken 08/06/17 ] hydrOXYzine HCL [hydrOXYzine HCL (RX)] 25 mg PO BID 08/08/17 [Last Taken ] - NPO status NPO Since - Liquids (Date): 08/12/17 NPO Since - Liquids (Time): 00:00 NPO Since - Solids (Date): 08/12/17 NPO Since - Solids (Time): 00:00 - Smoking Hx Smoking Status: Light smoker ANE Labs/Vital Signs - Labs Result Diagrams: 08/10/17 03:12 08/09/17 03:16 - Vital Signs Blood Pressure: 121/82 Heart Rate: 61 Respiratory Rate: 16 O2 Sat (%): 92 Height: 175 cm Weight: 97.6 kg ANE Physical Exam - Airway Mallampati Score: Class 2 - ASA Status ASA Status: III ANE Anesthesia Plan Anesthesia Plan: GA with mask Total IV Anesthesia: Yes
--- NOTE | 2017-08-12 09:08 | POSTANESTH ---
Post Anesthetic Evaluation Cardiovascular Status: Similar to Pre-Op Cond Respiratory Status: Similar to Pre-op Cond. Level of Consciousness/Mental Status: Can Participate in Eval Pain Control: Adequate, Prn Tx Ordered Nausea/Vomiting Control: Adequate, Prn Tx Ordered Complications Possibly Related to Anesthesia: None Noted
--- NOTE | 2017-08-12 09:09 | GIREPORT ---
[facility] - Endoscopy Department Patient Name: Jeremiah Golden Procedure Date: 08/12/2017 8:08 AM Patient Type: Inpatient Attending MD/ ER Physician: Romi Bryant Procedure: Upper GI endoscopy Indications: Odynophagia, Abnormal UGI series Providers: Juventino Fontenot MD Medicines: Total IV Anesthesia (TIVA) Complications: No immediate complications. Estimated blood loss: Minimal. Description of Procedure: After obtaining informed consent, the endoscope was passed under direct vision. Throughout the procedure, the patient's blood pressure, pulse, and oxygen saturations were monitored continuously. The Endoscope was intro duced through the mouth, and advanced to the third part of duodenum. The uppe r GI endoscopy was accomplished without difficulty. The patient tolerated th e procedure well. Findings: A single area of ectopic gastric mucosa was found in the upper third of the esophagus. Biopsies were taken with a cold forceps for histology. Estim ated blood loss was minimal. LA Grade D (one or more mucosal breaks involving at least 75% of esopha geal circumference) esophagitis with no bleeding was found in the lower thir d of the esophagus. Biopsies were taken with a cold forceps for histology. Estimated blood loss was minimal. One mild benign-appearing, intrinsic stenosis was found at the gastroesophageal junction. This measured less than one cm (in length) a nd was traversed. A TTS dilator was passed through the scope. Dilation wit h an 18-19-20 mm x 5.5 cm CRE balloon dilator was performed to 20 mm. The dilation site was examined and showed moderate improvement in luminal narrowing. Estimated blood loss was minimal. Scattered mild inflammation characterized by erosions, erythema and granularity was found in the gastric antrum. Biopsies were taken with a cold forceps for histology. Estimated blood loss was minimal. Scattered mild inflammation characterized by congestion (edema) and arturo thema was found in the entire duodenum. Biopsies were taken with a cold force ps for histology. Estimated blood loss was minimal. The exam was otherwise without abnormality. Estimated Blood Loss: Estimated blood loss was minimal. Post Op Diagnosis: - Ectopic gastric mucosa in the upper third of the esophagus. Biopsied. Query gastric inlet patch. - LA Grade D reflux esophagitis. Rule out Johnson's esophagus. Biopsied . - Benign-appearing esophageal stenosis. Dilated. - Gastritis. Biopsied. - Duodenitis. Biopsied. - The examination was otherwise normal. Recommendation: - Await pathology results. - My office will call with the pathology result with 5-7 days. If you h ave not heard from my office by 12-14, do not assume the pathology is giselle l, please call [phone] to get the pathology results. - Use Protonix (pantoprazole) 40 mg PO BID. Take 30-60 minutes before breakfast and dinner (when once daily take before breakfast) - Use Zantac (ranitidine) 300 mg PO at bedtime. - Use sucralfate tablets 1 gram PO QID PRN. Must separate from other me ds by 1-2 hours before and after. May take less then QID. Once feeling better , stop this first, then decreased from BID to once daily on pantoprazole, then taper ranitidine at night. - He should be on PPI daily until next EGD. Will decide after that EGD about tapering PPI. - [facility] patient to [facility] for possible discharge same day. - Repeat upper endoscopy in 3 months to check healing. - Thank you for allowing me to help in your patient's care. Do not hesi paez to call with any questions. Attending Participation: I personally performed the entire procedure. Po Jauregui M.D Juventino W MD Po 08/12/2017 9:09:48 AM This report has been signed electronicallyMathew MD Po Number of Addenda: 0 Note Initiated On: 08/12/2017 8:08 AM [email or web address]
[2017-08-12 10:24] VITALS: RESP 18
[2017-08-12] MEDS: FLUoxetine 20 MG CAP PO SCH (10:46)
[2017-08-12] MEDS: PANTOPRAZOLE SODIUM 40 MG TAB PO SCH (10:46)
[2017-08-12] MEDS: METOPROLOL SUCCINATE XR 50 MG TAB PO SCH (10:46)
[2017-08-12] MEDS: ENOXAPARIN 40 MG/0.4 ML SYR SC SCH (10:46)
[2017-08-12] MEDS: TAMSULOSIN HCL 0.4 MG CAP PO SCH (10:47)
[2017-08-12 11:46] VITALS: BP 138/91; PULSE 62; TEMP 98.4; O2SAT 95
--- NOTE | 2017-08-12 11:58 | GDS ---
[f rep st] DISCHARGE SUMMARY DIAGNOSES: 1. Severe esophagitis,benign-appearing esophageal stenosis, dilated. 2. Gastritis. 3. Duodenitis. 4. Chronic intermittent alcohol use. 5. Remote history of provoked DVT. 6. Benign prostatic hypertrophy. 7. Hypertension. PROCEDURES DONE: 1. Chest and thoracic angiogram: Negative for PE. 2. Upper GI with inflammation around the distal esophagus. 3. Upper endoscopy. HOSPITAL COURSE: The patient is a 51-year-old admitted with increasing epigastric pain. It was felt to be GI in nature, and he was placed on PPIs and ranitidine. Evaluation included a CT angiogram, w hich ruled out pulmonary embolism. He also had an upper GI, which was notable for esophageal inflamm ation. He had a followup endoscopy with the above findings, including severe esophagitis, duodenitis , and gastritis. He will be treated medically with Protonix and ranitidine, as well as Carafate as n eeded. He needs a followup endoscopy in 3 months to ensure healing, and at that time, if he has had significant healing, he can start tapering off the Protonix. Biopsies were taken to rule out Johnson esophagitis, as well as other etiologies. CONDITION ON DISCHARGE: Good. The patient continues to have severe epigastric pain, but is able to eat. Vital signs are stable with a heart rate of 72, blood pressure 121/82. He is 94% on room air. Abdomen is soft with some epigastric tenderness. DISCHARGE MEDICATIONS: Please see discharge medication report. FOLLOWUP INSTRUCTIONS: He should establish care with a primary care provider. I gave him 1 month of medications. He needs ongoing refills to last until he follows up with GI in 3 months. Follow up w [facility] endoscopy in 3 months to ensure healing. Total time spent with patient on day of discharge and coordination of care is 35 minutes. /[id number]/MODL
--- NOTE | 2017-08-12 15:36 | ASDISCHSUM ---
Discharge Information Plan Status:Home with No Needs Medically Cleared to Leave:08/11/2017 Discharge Date:08/12/2017 12:05 PM CM D/C Disposition:Home, Routine, Self-Care ADT D/C Disposition:Home, Routine, Self-Care Projected Discharge Date:08/12/2017 12:00 AM Transportation at D/C:Friend Discharge Delay Reason: Follow-Up Date:08/12/2017 12:00 AM Discharge Slot: Final Diagnosis:Severe esophagitis, duodenitis, gastritis Placement Information Patient Contact Information Contact Name:LOVE Relationship:Other Address:[address] Work Phone: [facility]:[employer] Alternate Phone: [facility]/Zip Code:[place] [address] Email: Financial Information Financial Class: Primary Plan Desc:MEDICARE INPATIENT Primary Plan Number:[id number] Secondary Plan Desc:MEDICA[place] Secondary Plan Number:[id number] Assessment Information LACE LACE Acuity / Level of Care Answers: Was the patient admitted to hospital via the emergency department? Yes: Comorbidities - select Answers: Mild liver or renal all that apply disease Emergency dept visits in Answers: 4+ last 6 months Score: 9 Date Signed: 08/08/2017 09:22 AM Electronically Signed By:Vanessa Oates RN [facility] Progress Note CM Note CM Note Notes: 08/08/2017 Case Management Note Met w/pt. Pt reports recent stay in retirement for approximately 3 months. Reports "bonded out 2 or 3 days ago", ran to a gas station, drank a 4 beers "to get in the right mind set to sleep" and experienced epigastric pain. Bought Pepto Bismol the next day and consumed half a bottle and came to the ED. Pt reports a court date of . When asked about housing at d/c pt offered that he wanted to move to [facility] near his sister Stefania. He did not have her phone number and has not been in contact with her since prior to his recent time in retirement. He is . Pt requested information on alcohol resident treatment centers. Provided info on centers that accept Medicaid. He is on social security disability but unable to recall build technician name. Pt also planned for a stay in SNF rehab d/t possible surgery. Informed pt that PT needs to evaluate to ascertain if that level of care is required. Pt has Medicaid and will need a ULTC 100 and commit to a 30 day stay if SNF level of care is necessary. Pt reports history of Bipolar and Schizophrenia. Pt unable to recall name of psychiatrist or counselor but offerred that he goes to the [facility] for medications. Case Management d/c poc: [facility] drug rehab and [facility]. Case Management to follow for further needs. Date Signed: 08/08/2017 02:41 PM Electronically Signed By:Sara Ferris RN [facility] Progress Note CM Note CM Note Notes: CM received a call from [facility]. CM scheduled a follow up appointment w/ his primary care doctor. CM inputted info in discharge section of [employer]. CM available for d/c needs. Plan: Independent Date Signed: 08/09/2017 01:23 PM Electronically Signed By:SHARLENE Pineda Case Management Discharge Plan Note Case Management Discharge Discharge Order Complete? Answers: Yes Patient to Obtain Answers: Independently Medications Transportation Arranged Answers: Family/Friends Discharge Comments Notes: Patient was discharged today and he is to follow up with [facility]. Date Signed: 08/12/2017 03:35 PM Electronically Signed By:Comfort Corbett LCSW Intervention Information Intervention Type:*Incorrect Registration Date of Service:08/09/2017 12:29 PM Patient Type:Observation Staff Member:MAGED Marcus Courtney Hours: Discipline: Severity: Comment:
[2017-08-12] MEDS ORDERED: RANITIDINE HCL 150 MG/10 ML UDCUP PO SCH (22:00)
== END 2017-08-12 12:05 | disposition home or self-care (01) | DRG 392 ==
LOC: UNDOADMOB 08:58 → F2W 10:49 → OBSVTOIN 11:56
PROVIDERS: ADMIT Internal Medicine; ATTEND Internal Medicine
DX: K22.2 Esophageal obstruction (principal); K21.0 Gastro-esophageal reflux disease with esophagitis; K29.70 Gastritis, unspecified, without bleeding; K29.80 Duodenitis without bleeding; K44.9 Diaphragmatic hernia without obstruction or gangrene; F17.210 Nicotine dependence, cigarettes, uncomplicated; F10.10 Alcohol abuse, uncomplicated; F43.10 Post-traumatic stress disorder, unspecified; N40.0 Benign prostatic hyperplasia without lower urinary tract symptoms; I25.10 Atherosclerotic heart disease of native coronary artery without angina pectoris; I10 Essential (primary) hypertension; G47.33 Obstructive sleep apnea (adult) (pediatric)
CPT/HCPCS: 96365; 96366; C1726; G0009; J1170; J1650; J1956; J2060; J2405; J2704; Q9967

== ENCOUNTER 2017-08-12 18:28 | Emergency (ER) | payer OTHER, MEDICAID ==
[2017-08-12] MEDS ORDERED: LORazepam 2 MG/ML INJ IVP ONE (18:40)
[2017-08-12] MEDS ORDERED: HALOPERIDOL LACT 5 MG/ML INJ IM ONE (18:40)
[2017-08-12] MEDS ORDERED: LORazepam 2 MG/ML INJ ONE (18:41)
[2017-08-12] MEDS ORDERED: HALOPERIDOL LACT 5 MG/ML INJ ONE (18:41)
--- NOTE | 2017-08-12 18:42 | EDPHY ---
H & P Source: Police, RN/MD, EMS - Personal History Tetanus Vaccine Date: 2011 - Medical/Surgical History Hx Asthma: No Hx Chronic Respiratory Disease: No Hx Diabetes: No Hx Cardiac Disease: No Hx Renal Disease: No Hx Cirrhosis: No Hx Alcoholism: Yes Hx HIV/AIDS: No Hx Splenectomy or Spleen Trauma: No Other PMH: PMHx: alcoholism, w/d seizures , DVT, alcoholic gastritis, schizoaffective disorder, depression, PTSD, ECT. PSHx: ACL tear, 2 LUMBAR DISCS REMOVED, R T/F fracture,. Anaesthesia complication. linda thumbs, linda wrists, massive concussion - Social History Smoking Status: Light smoker Time Seen by Provider: 08/12/17 18:41 HPI/ROS: HPI: This is a 51-year-old male presents with Chief Complaint: Alcohol intoxication Location:psych Quality: alcohol Duration: Today Signs and Symptoms: No chest pain, no shortness of breath, no suicidal ideation , no homicidal ideation, no hallucinations, + physically aggressive, + verbally aggressive Timing: Acute on chronic Severity: Moderate to severe Context: Patient is brought in by [place] [facility] Police as he was found intoxicated in a private parking lot. He was unable to stand on his own, difficulty ambulating without assistance and became verbally aggressive towards the police officers. He was discharged this morning from this hospital after admission for severe esophagitis secondary to chronic alcoholism. Patient admits to drinking alcohol today; will not disclose how much. Denies chest pain , shortness of breath, abdominal pain. The informed by police and staff that patient is no longer eligible to be at [facility] due to inappropriate behaviors. Modifying Factors: None Comment: ROS: Limited due to intoxication MEDICAL/SURGICAL/SOCIAL HISTORY: PMHx: alcoholism, w/d seizures , DVT, alcoholic gastritis, schizoaffective disorder, depression, PTSD, ECT PSHx: ACL tear, 2 LUMBAR DISCS REMOVED, R T/F fracture, Anaesthesia complication linda thumbs, linda wrists, massive concussion Social history: Disabled. CONSTITUTIONAL: Untidy, uncooperative, loud, verbally aggressive adult male, awake and alert, no obvious distress HEENT: Atraumatic and normocephalic, PERRL, EOMI. Tympanic membranes clear. Oropharynx clear, no exudate and moist pink mucosa. Airway patent. No lymphadenopathy. No meningismus. Cardiovascular: Normal S1/S2, regular rate, regular rhythm, without murmur rub or gallop. PULMONARY/CHEST: Symmetrical and nontender. Clear to auscultation bilaterally. Good air movement. No accessory muscle usage. ABDOMEN: Soft, nondistended, nontender, no rebound, no guarding, no peritoneal signs, no masses or organomegaly. No CVAT. EXTREMITIES: 2/2 pulses, strength 5/5, no deformities, no clubbing, no cyanosis or edema. NEUROLOGICAL: no focal neuro deficits. GCS 15. SKIN: Warm and dry, no erythema. no rash. Good capillary refill. (Abbie,Terra) Constitutional: Initial Vital Signs Heart Rate 95 08/12/17 18:48 Respiratory Rate 18 08/12/17 18:48 Blood Pressure 122/69 H 08/12/17 18:48 O2 Sat (%) 94 08/12/17 18:48 O2 Delivery Mode Room Air O2 (L/minute) 2 Allergies/Adverse Reactions: Sulfa (Sulfonamide Antibiotics) Allergy (Unknown, Verified 08/08/17 06:16) Rash tetracycline [Tetracycline] Allergy (Unknown, Verified 08/08/17 06:16) Rash melon Allergy (Verified 08/08/17 06:16) Tingling of mouth/throat watermelon Allergy (Verified 08/08/17 06:16) Tingling of mouth/throat Home Medications: Medication Instructions Recorded Metoprolol Succinate Xr [Toprol Xl 50 mg PO DAILY 02/15/16 50 mg (*)] Amitriptyline HCl [Elavil 50 mg 50 mg PO HS 08/08/17 (*)] FLUoxetine [Prozac 20 MG (*)] 20 mg PO DAILY 08/08/17 Tamsulosin HCl [Flomax 0.4 MG (*)] 0.4 mg PO DAILY 08/08/17 hydrOXYzine HCL [hydrOXYzine HCL 25 mg PO BID 08/08/17 (RX)] Pantoprazole Sodium [Protonix 40mg 40 mg PO BID #60 tab 08/12/17 (*)] Ranitidine HCl [Zantac] 300 mg PO HS #60 udcup 08/12/17 Sucralfate [Carafate 1gm/10ml Oral 1 gm PO ACHS #120 ml 08/12/17 Liquid (*)] Medical Decision Making ED Course/Re-evaluation: 1840: Placed on detainer. Due to being a flight risk, safety to himself and others, verbally aggressive; IM Haldol and Ativan given. Breathalyzer ordered. Suspect patient will remain in this ER until the morning at which time he will become more sober. He will require re-evaluation at that time. 2335: Reassessed patient. Sleeping soundly. I can hear patient snoring in the [place]. 0100: End of shift. Signed out to Dr. Davis. Once patient is more sober , re-evaluate and suspect will be able to be discharged home. (Mindi Leiva) I took over care of this patient at 1:00 a.m.. This patient is here for alcohol intoxication. The patient is on a arc hold. At 4:15 a.m. , the patient is up and ambulatory to the bathroom under their own power and with a normal gait. The patient is responding to questions appropriately and in full sentences. The liabilities of alcohol abuse have been discussed with this patient. This patient has been medically cleared for discharge to the [facility] with [place] police or to home with a sober ride. Followup and return to emergency department precautions discussed. All of the patient's questions were answered. The patient was discharged from emergency department in good condition. (Ashwini Davis) Differential Diagnosis: Differential diagnosis includes but is not limited to alcohol intoxication. (Mindi Leiva) - Data Points Medications Given: Discontinued Medications Haloperidol Lactate (Haldol Injection) 5 mg IM EDNOW ONE Stop: 08/12/17 18:41 Last Admin: 08/12/17 18:53 Dose: 5 mg Lorazepam (Ativan Injection) 2 mg IVP EDNOW ONE Stop: 08/12/17 18:41 Last Admin: 08/12/17 18:53 Dose: 2 mg Departure - Departure Disposition: Home, Routine, Self-Care Clinical Impression: Alcohol intoxication Qualifiers: Complication of substance-induced condition: uncomplicated Qualified Code(s): F10.920 - Alcohol use, unspecified with intoxication, uncomplicated Condition: Good Instructions: Alcohol Intoxication (ED) Additional Instructions: Read and follow provided instructions. Follow-up with your primary care physician in 1-2 days for re-evaluation and to discuss detox options. Return to the emergency department for worsening symptoms or other serious concerns. Referrals: [facility] [Outside] - As per Instructions
[2017-08-13 04:24] VITALS: BP 114/68; PULSE 77; RESP 18; TEMP 98.2; O2SAT 94
== END 2017-08-13 04:27 | disposition home or self-care (01) ==
DX: F10.920 Alcohol use, unspecified with intoxication, uncomplicated (principal); F17.200 Nicotine dependence, unspecified, uncomplicated
CPT/HCPCS: 96372; 96374; 99285; J2060

== ENCOUNTER 2017-08-19 11:42 | Emergency (ER) | payer OTHER, MEDICAID ==
[2017-08-19 13:00] LABS: % IMMATURE GRANULYOCYTES 0.3 % (0.0-1.1); ABSOLUTE IMMATURE GRANULOCYTES 0.03 10^3/uL (0.00-0.10); ADD DIFF? NO; ADD MORPH? NO; ADD SCAN? NO; ATYPICAL LYMPHOCYTE FLAG 0 (0-99); FRAGMENT RBC FLAG 0 (0-99); HEMATOCRIT 40.4 % (40.0-51.0); HEMOGLOBIN 14.9 g/dL (13.7-17.5); LEFT SHIFT FLG 0 (0-99); LIPEMIA HEMOLYSIS FLAG 90 (0-99); MEAN CELL HEMOGLOBIN 32.2 pg (27.9-34.1); MEAN CELL HEMOGLOBIN CONCENTR. 36.9 g/dL (32.4-36.7); MEAN CELL VOLUME 87.3 fL (81.5-99.8); MEAN PLATELET VOLUME 9.5 fL (8.7-11.7); PLATELET CLUMPS FLAG 10 (0-99); PLATELET COUNT 326 10^3/uL (150-400); RED BLOOD CELL COUNT 4.63 10^6/uL (4.40-6.38); RED CELL DISTRIBUTION WIDTH 14.3 % (11.5-15.2)
[2017-08-19 13:21] LABS: ANION GAP 10 mEq/L (8-16); CARBON DIOXIDE 26 mEq/l (22-31); CHLORIDE 103 mEq/L (97-110); CREATININE 0.9 mg/dL (0.7-1.3); ETHANOL SERUM < 10 mg/dL (0-10); GLOMERULAR FILTRATION RATE > 60; GLUCOSE 164 mg/dL (70-100); POTASSIUM 3.4 mEq/L (3.5-5.2); SODIUM 139 mEq/L (134-144)
--- NOTE | 2017-08-19 14:45 | EDPHY ---
H & P Smoking Status: Light smoker Time Seen by Provider: 08/19/17 12:11 HPI/ROS: CHIEF COMPLAINT: Depression, feeling suicidal HISTORY OF PRESENT ILLNESS: 51-year-old male presents to the emergency department feeling depressed and suicidal. Patient states "I want to jump out in front of traffic ". He states "I can't live without my ". He states that he feels that people are out to kill him. He was recently released from care home 2 days ago. He is currently homeless. He admits to drinking alcohol yesterday. He denies any other recreational drugs. Denies chest pain or difficulty breathing. Denies abdominal pain. Denies neck or back pain. Patient does have a history of depression and has been taking Prozac. REVIEW OF SYSTEMS: Constitutional: No fever, no chills. Eyes: No double or blurry vision. ENT: No sore throat. Respiratory: No cough, no shortness of breath. Cardiac: No chest pain. Gastrointestinal: No abdominal pain, vomiting or diarrhea. Genitourinary: No dysuria. Musculoskeletal: No neck or back pain. Skin: No rashes. Neurological: No headache. (Jacqueline Burton) Past Medical/Surgical History: Depression, ECT in the past (Jacqueline Burton) Social History: Currently homeless (Jacqueline Burton) Physical Exam: General Appearance: Alert, no distress. Flat affect. Eyes: Pupils equal and round. Extraocular motions are all intact. ENT: Mouth: Mucous membranes moist. Respiratory: No wheezing, rhonchi, or rales, lungs are clear to auscultation. Cardiovascular: Regular rate and rhythm. Gastrointestinal: Abdomen is soft and nontender, no masses, no rebound or guarding, bowel sounds normal. Neurological: Alert and oriented x 3, cranial nerves II through XII grossly intact Skin: Warm and dry, no rashes. Musculoskeletal: Nontender to palpate along the cervical, thoracic or lumbar spine. Neck is supple. Extremities: Full range of motion and no peripheral edema. Psychiatric: Patient is oriented X 3, there is no agitation. (Jacqueline Burton) Constitutional: Initial Vital Signs Temperature (C) 36.9 C 08/19/17 11:49 Heart Rate 102 H 08/19/17 11:49 Respiratory Rate 20 08/19/17 11:49 Blood Pressure 118/88 H 08/19/17 11:49 O2 Sat (%) 97 08/19/17 11:49 O2 Delivery Mode Room Air Allergies/Adverse Reactions: Sulfa (Sulfonamide Antibiotics) Allergy (Unknown, Verified 08/19/17 11:48) Rash tetracycline [Tetracycline] Allergy (Unknown, Verified 08/19/17 11:48) Rash melon Allergy (Verified 08/19/17 11:48) Tingling of mouth/throat niacin Allergy (Verified 08/20/17 09:21) Rash watermelon Allergy (Verified 08/19/17 11:48) Tingling of mouth/throat Home Medications: Medication Instructions Recorded Metoprolol Succinate Xr [Toprol Xl 50 mg PO DAILY 02/15/16 50 mg (*)] Amitriptyline HCl [Elavil 50 mg 50 mg PO HS 08/08/17 (*)] FLUoxetine [Prozac 20 MG (*)] 20 mg PO DAILY 08/08/17 Tamsulosin HCl [Flomax 0.4 MG (*)] 0.4 mg PO DAILY 08/08/17 hydrOXYzine HCL [hydrOXYzine HCL 25 mg PO BID 08/08/17 (RX)] Pantoprazole Sodium [Protonix 40mg 40 mg PO BID #60 tab 08/12/17 (*)] Ranitidine HCl [Zantac] 300 mg PO HS #60 udcup 08/12/17 Sucralfate [Carafate 1gm/10ml Oral 1 gm PO ACHS #120 ml 08/12/17 Liquid (*)] Medical Decision Making ED Course/Re-evaluation: 51-year-old male presents to the emergency department feeling depressed and suicidal. He was placed on an M1 hold. He is currently awaiting mental health evaluation. (Jacqueline Burton) 8:20 p.m. patient has been evaluated by mental health and they are looking for placement Patient has remained stable. His care is transferred to Dr. Rivera at 11:00 p.m. (Adan Gutierrez) I assumed care of this patient at 7:00 a.m. from Neftail Mccann. We continue to await placement. The patient has been resting comfortably. 14:47 Reassessed patient. He complains of some epigastric discomfort. He has not been given his daily medications for 3 days. He would like to change and shower. Patient was given his usual Zantac, Prozac, and Flomax. He also takes Elavil at night. Care assumed by Dr Jeffrey Davis at 3:30pm, change of shift. (Stephanie Zapien) I took over care of this patient at 3:30 p.m.. The patient is on an M1 hold for suicidal ideation. The patient is to be admitted. Placement is pending. 11:00 p.m., the patient's emergency department course under my care has been uneventful. The patient still awaits placement for psychiatric admission at this time. Care turned over to Dr. Mccann. (Ashwini Davis) 3:00 p.m. care transferred to Dr. Gaurav Madera we continue to await placement. (Mj Christiansen) 3:00 p.m.-I assumed care of this patient at shift change. On an M1 hold for suicidal ideation, awaiting placement. 11:00 p.m.-Dr. Mccann assumed care of this pt at shift change. (Maggie Lynn) Differential Diagnosis: Depression including functional and major depression, situational depression, medication side effect, drugs and alcohol abuse. (Jacqueline Burton) Other Provider: 1:00 p.m. I was asked by mental health to renew the patient's M1 hold. The patient continues to endorse suicidal ideation. They have not been able to place him because he has a history of not cooperating with treatment and prolong stays in the psychiatric unit. They are investigating new possibilities. 3:00 p.m. care transferred to Dr. Maggie Lynn. (Mj Christiansen) 22:30 care assumed by me from Dr. Madera pending placement. 0700 patient signed out to Dr. Zapien pending placement. No issues during my care this patient overnight. 08/21/2017 2300: Care re-assumed by me from Dr. Davis pending placement. 0700 patient signed out to Dr. Christiansen pending placement. No issues during my care this patient overnight. 08/22/2017 11/27/2024: Care assumed by me from Dr. Lynn pending placement. 0700 patient signed out to [facility] pending placement. No issues during my care this patient overnight. (Renny Mccann) I received signout at 0700. At 1000, was informed that patient has been accepted for transfer to inpatient psychiatric facility. (Iker Pierson) Care Turn Over: Care will be turned over to Dr. Adan Gutierrez at 6:00 p.m. for disposition and plan. (Jacqueline Burton) - Data Points Laboratory Results: Laboratory Results 08/19/17 12:30 08/19/17 12:30 Medications Given: Fluoxetine HCl (Prozac) 20 mg PO DAILY JORGE Stop: 02/17/18 15:29 Last Admin: 08/22/17 09:50 Dose: 20 mg Discontinued Medications Acetaminophen (Tylenol) 650 mg PO EDNOW ONE Stop: 08/22/17 04:40 Last Admin: 08/22/17 04:39 Dose: 650 mg Famotidine (Pepcid) 20 mg PO EDNOW ONE Stop: 08/21/17 16:19 Last Admin: 08/21/17 16:28 Dose: 20 mg Lorazepam (Ativan) 1 mg PO ONCE ONE Stop: 08/19/17 22:51 Last Admin: 08/19/17 22:52 Dose: 1 mg Lorazepam (Ativan) 1 mg PO EDNOW ONE Stop: 08/22/17 23:28 Last Admin: 08/22/17 23:35 Dose: 1 mg Tamsulosin HCl (Flomax) 0.4 mg PO EDNOW ONE Stop: 08/21/17 15:29 Last Admin: 08/21/17 16:28 Dose: 0.4 mg Departure - Departure Disposition: Other Psych, Not Derek Clinical Impression: Suicidal ideation, Depression Condition: Good Referrals: Shawna Bolden MD [Primary Care Provider] - As per Instructions
[2017-08-19] MEDS ORDERED: LORazepam 1 MG TAB ONE (22:50)
[2017-08-19] MEDS ORDERED: LORazepam 1 MG TAB PO ONE (22:50)
[2017-08-21] MEDS ORDERED: RANITIDINE SYRUP 15 MG/1 ML UDSYR PO ONE (15:28)
[2017-08-21] MEDS ORDERED: TAMSULOSIN HCL 0.4 MG CAP PO ONE (15:28)
[2017-08-21] MEDS ORDERED: FAMOTIDINE 20 MG TAB PO ONE (16:18)
[2017-08-21] MEDS: FLUoxetine 20 MG CAP PO SCH (16:28)
[2017-08-22] MEDS ORDERED: ACETAMINOPHEN 325 MG TAB ONE (04:37)
[2017-08-22] MEDS ORDERED: ACETAMINOPHEN 325 MG TAB PO ONE (04:39)
[2017-08-22] MEDS: FLUoxetine 20 MG CAP PO SCH (09:50)
[2017-08-22 23:03] VITALS: RESP 16
[2017-08-22] MEDS ORDERED: LORazepam 1 MG TAB PO ONE (23:27)
[2017-08-23 09:41] VITALS: BP 142/93; PULSE 101; TEMP 97.9; O2SAT 96
[2017-08-23] MEDS ORDERED: TAMSULOSIN HCL 0.4 MG CAP PO ONE (09:47)
[2017-08-23] MEDS: FLUoxetine 20 MG CAP PO SCH (10:13)
== END 2017-08-23 12:13 ==
DX: R45.851 Suicidal ideations (principal); F32.9 Major depressive disorder, single episode, unspecified; F17.200 Nicotine dependence, unspecified, uncomplicated
CPT/HCPCS: 80305; G0480

== ENCOUNTER 2017-08-27 22:00 | Emergency (ER) | payer OTHER, MEDICAID ==
--- NOTE | 2017-08-27 22:08 | EDPHY ---
H & P HPI/ROS: HPI CHIEF COMPLAINT: Alcohol Intoxication HISTORY OF PRESENT ILLNESS: Patient 51-year-old male, well-known to the emergency room department, he is homeless, alcoholic, he presents emergency room in handcuffs by police for acute alcohol intoxication. [facility] as he has an aggressive attitude and gets aggressive toward staff there. When I asked the police why they brought him here they state "you debra are the next is detox center available" Past Medical History: Alcoholism, history of alcohol draw, GERD Past Surgical History: ACL tear Social History: Homeless, daily alcohol use. Family History: Noncontributory ROS REVIEW OF SYSTEMS: A comprehensive 10 point review of systems is otherwise negative aside from elements mentioned in the history of present illness. Exam Constitutional Intoxicated, triage nursing summary reviewed, vital signs reviewed, Sleepy, smells of alcohol Eyes normal conjunctivae and sclera, horizontal beating nystagmus consistent acute alcohol intoxication, otherwise pupils equal and react to light HENT normal inspection, atraumatic, moist mucus membranes, no epistaxis, neck supple/ no meningismus, no raccoon eyes. Respiratory clear to auscultation bilaterally, normal breath sounds, no respiratory distress, no wheezing. Cardiovascular rate normal, regular rhythm, no murmur, no edema, distal pulses normal. Gastrointestinal soft, non-tender, no rebound, no guarding, normal bowel sounds, no distension, no pulsatile mass. Genitourinary no CVA tenderness. Musculoskeletal no midline vertebral tenderness, full range of motion, no calf swelling, no tenderness of extremities, no meningismus, good pulses, neurovascularly intact. Skin pink, warm, & dry, no rash, skin atraumatic. Neurologic sleepy, intoxicated with alcohol,, alert and oriented x 3, AAOx3, moves all 4 extremities equally, motor intact, sensory intact, CN II-XII intact , , normal vision, normal speech. Psychiatric normal mood/affect. Heme/Lymph/Immune no lymphadenopathy. Differential Diagnosis: Includes but is not limited to in a particular order acute alcohol intoxication, alcohol abuse, dehydration, electrolyte abnormality , nausea vomiting from acute alcohol intoxication Medical Decision Making: Plan for this patient he has no acute medical problem. He is intoxicated alcohol. He has a stable gait. 2206: Patient states to me: "FUCK YOU" "I want to get out of here" Re-evaluation: 2207: Patient is clinically sober. He is somewhat nasty was staff. 2214: Patient became belligerent and aggressive in the emergency room. The police removed him from the emergency room in handcuffs to skilled nursing for disorderly conduct. Source: Patient, Police - Personal History Tetanus Vaccine Date: 2011 - Medical/Surgical History Hx Asthma: No Hx Chronic Respiratory Disease: No Hx Diabetes: No Hx Cardiac Disease: No Hx Renal Disease: No Hx Cirrhosis: No Hx Alcoholism: Yes Hx HIV/AIDS: No Hx Splenectomy or Spleen Trauma: No Other PMH: PMHx: alcoholism, w/d seizures , DVT, alcoholic gastritis, schizoaffective disorder, depression, PTSD, ECT. PSHx: ACL tear, 2 LUMBAR DISCS REMOVED, R T/F fracture,. Anaesthesia complication. linda thumbs, linda wrists, massive concussion - Social History Smoking Status: Light smoker Constitutional: Initial Vital Signs Temperature (C) 36.9 C 08/27/17 22:00 Heart Rate 89 08/27/17 22:00 Respiratory Rate 18 08/27/17 22:00 Blood Pressure 125/61 H 08/27/17 22:00 O2 Sat (%) 94 08/27/17 22:00 O2 Delivery Mode Room Air Allergies/Adverse Reactions: Sulfa (Sulfonamide Antibiotics) Allergy (Unknown, Verified 08/27/17 22:14) Rash tetracycline [Tetracycline] Allergy (Unknown, Verified 08/27/17 22:14) Rash melon Allergy (Verified 08/27/17 22:14) Tingling of mouth/throat niacin Allergy (Verified 08/27/17 22:14) Rash watermelon Allergy (Verified 08/27/17 22:14) Tingling of mouth/throat Home Medications: Medication Instructions Recorded Metoprolol Succinate Xr [Toprol Xl 50 mg PO DAILY 02/15/16 50 mg (*)] Amitriptyline HCl [Elavil 50 mg 50 mg PO HS 08/08/17 (*)] FLUoxetine [Prozac 20 MG (*)] 20 mg PO DAILY 08/08/17 Tamsulosin HCl [Flomax 0.4 MG (*)] 0.4 mg PO DAILY 08/08/17 hydrOXYzine HCL [hydrOXYzine HCL 25 mg PO BID 08/08/17 (RX)] Pantoprazole Sodium [Protonix 40mg 40 mg PO BID #60 tab 12/03/17 (*)] Ranitidine HCl [Zantac] 300 mg PO HS #60 udcup 08/12/17 Sucralfate [Carafate 1gm/10ml Oral 1 gm PO ACHS #120 ml 08/12/17 Liquid (*)] Departure - Departure Disposition: Home, Routine, Self-Care Clinical Impression: Alcoholic intoxication Qualifiers: Complication of substance-induced condition: uncomplicated Qualified Code(s): F10.920 - Alcohol use, unspecified with intoxication, uncomplicated Condition: Good Instructions: Alcohol Intoxication (ED), Abuse of Alcohol (DC) Referrals: NONE *PRIMARY CARE P,. [Primary Care Provider] - As per Instructions
[2017-08-27 22:14] VITALS: BP 125/61; PULSE 89; RESP 18; TEMP 98.4; O2SAT 94
== END 2017-08-27 22:31 | disposition home or self-care (01) ==
DX: F10.920 Alcohol use, unspecified with intoxication, uncomplicated (principal); F17.200 Nicotine dependence, unspecified, uncomplicated

== ENCOUNTER 2017-10-31 11:07 | Emergency (ER) | payer OTHER, MEDICAID ==
[2017-10-31 11:13] VITALS: RESP 18
--- NOTE | 2017-10-31 11:22 | EDPHY ---
H & P Stated Complaint: lara bite on toes Time Seen by Provider: 10/31/17 11:20 - Personal History Tetanus Vaccine Date: 2011 - Medical/Surgical History Hx Asthma: No Hx Chronic Respiratory Disease: No Hx Diabetes: No Hx Cardiac Disease: No Hx Renal Disease: No Hx Cirrhosis: No Hx Alcoholism: Yes Hx HIV/AIDS: No Hx Splenectomy or Spleen Trauma: No Other PMH: PMHx: alcoholism, w/d seizures , DVT, alcoholic gastritis, schizoaffective disorder, depression, PTSD, ECT. PSHx: ACL tear, 2 LUMBAR DISCS REMOVED, R T/F fracture,. Anaesthesia complication. linda thumbs, linda wrists, massive concussion - Social History Smoking Status: Light smoker Constitutional: Initial Vital Signs Temperature (C) 36.5 C 10/31/17 11:10 Heart Rate 102 H 10/31/17 11:10 Respiratory Rate 18 10/31/17 11:10 Blood Pressure 124/82 H 10/31/17 11:10 O2 Sat (%) 97 10/31/17 11:10 O2 Delivery Mode Room Air Allergies/Adverse Reactions: Sulfa (Sulfonamide Antibiotics) Allergy (Unknown, Verified 08/27/17 22:14) Rash tetracycline [Tetracycline] Allergy (Unknown, Verified 08/27/17 22:14) Rash melon Allergy (Verified 08/27/17 22:14) Tingling of mouth/throat niacin Allergy (Verified 08/27/17 22:14) Rash watermelon Allergy (Verified 08/27/17 22:14) Tingling of mouth/throat Home Medications: Medication Instructions Recorded Metoprolol Succinate Xr [Toprol Xl 50 mg PO DAILY 02/15/16 50 mg (*)] Amitriptyline HCl [Elavil 50 mg 50 mg PO HS 08/08/17 (*)] FLUoxetine [Prozac 20 MG (*)] 20 mg PO DAILY 08/08/17 Tamsulosin HCl [Flomax 0.4 MG (*)] 0.4 mg PO DAILY 08/08/17 hydrOXYzine HCL [hydrOXYzine HCL 25 mg PO BID 08/08/17 (RX)] Pantoprazole Sodium [Protonix 40mg 40 mg PO BID #60 tab 08/12/17 (*)] Ranitidine HCl [Zantac] 300 mg PO HS #60 udcup 08/12/17 Sucralfate [Carafate 1gm/10ml Oral 1 gm PO ACHS #120 ml 08/12/17 Liquid (*)] Medical Decision Making ED Course/Re-evaluation: CHIEF COMPLAINT: Frostbitten feet HISTORY OF PRESENT ILLNESS: 52-year-old who was out in a cold last night is complaining of frostbite. He is homeless. He denies any other symptoms. REVIEW OF SYSTEMS: A 10 point review of systems was performed and is negative with the exception of the elements mentioned in the history of present illness. PHYSICAL EXAM: HR, BP, O2 Sat, RR. Temp noted General Appearance: Alert, well hydrated, appropriate, and non-toxic appearing. Head: Atraumatic without scalp tenderness or obvious injury Eyes: Pupils equal, round, reactive to light and accommodation, EOMI, no trauma , no injection. Ears: Clear bilaterally, no perforation, normal landmarks Nose: Atraumatic, no rhinorrhea, clear. Throat: There is no erythema or exudates, no lesions, normal tonsils, mucus membranes moist. Neck: Supple, 2+ carotid upstroke, nontender, no lymphadenopathy. Respiratory: No retractions, no distress, no wheezes, and no accessory muscle use. Lungs are clear to auscultation bilaterally. Cardiovascular: Regular rate and rhythm, no murmurs, rubs, or gallops. Bilateral carotid, radial, dorsalis pedis, and posterior tibial pulses intact. Good capillary refill all extremities. Gastrointestinal: Abdomen is soft, nontender, non-distended, no masses, no rebound, no guarding, no peritoneal signs. Musculoskeletal: Normal active ROM of all extremities, atraumatic. Neurological: Alert, appropriate, and interactive. The patient has normal DTRs and non-focal cranial nerves, motor, sensory, and cerebellar exam. Skin: Mild redness to both feet. No evidence blistering. No evidence of gangrene or demarcation. No vascular inflow issues. No lacerations or abrasions. No evidence of infection. No rashes, good turgor, no nodules on palpation. Past medical history: Noncontributory Past surgical history: Noncontributory Family history: Noncontributory Social history: Homeless, employed at times, abuses tobacco drugs and alcohol DIFFERENTIAL DIAGNOSIS: Includes but is not limited to cellulitis, frostbite, wet gangrene, dry gangrene, vascular inflow problem MEDICAL DECISION MAKING: This patient has very mild red feet that could be consistent with some mild frostbite. I will give him some pain medicine start him on some ibuprofen. We have the porter sample case working with the patient to find him a half-way. He will follow up in wound clinic. Departure - Departure Disposition: Home, Routine, Self-Care Clinical Impression: Frostbite of both feet Qualifiers: Encounter type: initial encounter Qualified Code(s): T33.821A - Superficial frostbite of right foot, initial encounter Condition: Good Instructions: Frostbite (ED) Additional Instructions: 1. Follow up with the wound clinic for further evaluation. 2. Return to the emergency department for increasing pain, numbness or weakness , or other worsening of condition. Referrals: [facility] (ED,. [Edm Groups for Call Sched] - As per Instructions
[2017-10-31] MEDS ORDERED: HYDROCODONE/APAP 5/325 TAB PO ONE (11:36)
[2017-10-31] MEDS ORDERED: IBUPROFEN 800 MG TAB PO ONE (11:36)
[2017-10-31] MEDS ORDERED: HYDROCOD/APAP 5/325 PREPACK#6 BTL TAKEHOME ONE (11:36)
[2017-10-31 11:50] VITALS: BP 150/78; PULSE 100; TEMP 98.4; O2SAT 95
--- NOTE | 2017-10-31 12:16 | ASMTCMCOM ---
CM Note CM Note Notes: Met with patient to provide information for the coordinated entry program and the [facility]. Patient states he doesn't want to "be around those nasty people". I left him with times and location of the coordinated entry program and confirmed he was not interested in the [facility] at this time. Date Signed: 10/31/2017 12:15 PM Electronically Signed By:Vanessa Oates RN
== END 2017-10-31 11:56 | disposition home or self-care (01) ==
LOC: EDUNIT#
DX: T33.821A Superficial frostbite of right foot, initial encounter (principal); T33.822A Superficial frostbite of left foot, initial encounter; F17.200 Nicotine dependence, unspecified, uncomplicated; X31.XXXA Exposure to excessive natural cold, initial encounter

== ENCOUNTER 2017-11-02 11:27 | Emergency (ER) | payer OTHER, MEDICAID ==
[2017-11-02 12:28] LABS: PLATELET COUNT 226 10^3/uL (150-400)
[2017-11-02 13:06] VITALS: RESP 18
--- NOTE | 2017-11-02 13:17 | CPEKG ---
Heart Rate: 84 RR Interval: 714 P-R Interval: 157 QRSD Interval: 84 QT Interval: 388 QTC Interval: 459 P [place]: 0 QRS [place]: 80 T Wave [place]: 58 EKG Severity - BORDERLINE ECG - EKG Impression: SINUS RHYTHM EKG Impression: BORDERLINE T ABNORMALITIES, ANT-LAT LEADS Electronically Signed By: Ibrahima Luke 02-Nov-2017 14:48:23
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
[2017-11-02 17:48] VITALS: BP 161/97; PULSE 100; TEMP 98.6; O2SAT 98
== END 2017-11-02 17:53 | disposition home or self-care (01) ==
DX: F25.9 Schizoaffective disorder, unspecified (principal); F17.200 Nicotine dependence, unspecified, uncomplicated
CPT/HCPCS: 80305; G0480

== ENCOUNTER 2017-11-04 23:08 | Emergency (ER) | payer OTHER, MEDICAID ==
[2017-11-04 23:17] VITALS: BP 137/86; PULSE 100; RESP 17; TEMP 97.9; O2SAT 97
--- NOTE | 2017-11-04 23:34 | EDPHY ---
H & P Stated Complaint: ETOH Time Seen by Provider: 11/04/17 23:27 HPI/ROS: CHIEF COMPLAINT: Intoxication HISTORY OF PRESENT ILLNESS: The patient is a 52-year-old alcoholic man who was intoxicated and is not welcome at the [facility]. He was brought here. He is able to ambulate. He denies any complaints. No signs of injury. REVIEW OF SYSTEMS: Constitutional: denies: chills, fever, recent illness, recent injury EENTM: denies: blurred vision, double vision, nose congestion Respiratory: denies: cough, shortness of breath Cardiac: denies: chest pain, irregular heart rate, lightheadedness, palpitations Gastrointestinal/Abdominal: denies: abdominal pain, diarrhea, nausea, vomiting, blood streaked stools Genitourinary: denies: dysuria, frequency, hematuria, pain Musculoskeletal: denies: joint pain, muscle pain Skin: denies: lesions, rash, jaundice, bruising Neurological: denies: headache, numbness, paresthesia, tingling, dizziness, weakness Hematologic/Lymphatic: denies: blood clots, easy bleeding, easy bruising Immunologic/allergic: denies: HIV/AIDS, transplant Physical Exam General Appearance: WD/WN, no apparent distress, sleeping but easily arousable EENT: PERRL/EOMI, normal ENT inspection, TMs normal, pharynx normal Neck: non-tender, full range of motion, supple, normal inspection Respiratory: chest non-tender, lungs clear, normal breath sounds Cardiac/Chest: normal peripheral pulses, regular rate, rhythm, P Peripheral Pulses: 2+: carotid (R), carotid (L), femoral (R), femoral (L), dorsalis-pedis (R), dorsalis-pedis (L) Abdomen: normal bowel sounds, non-tender, soft Extremities: normal range of motion, non-tender, normal inspection, normal capillary refill, ambulates without difficulty Neurological: calm, 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 No: alert Appearance: appropriate appearance, appropriate insight, neat, denies illness Behavior/Eye Contact/Speech: cooperative, Thoughts/Hallucinations: normal thought pattern, no apparent hallucination Skin: normal color, warm/dry Source: Patient Exam Limitations: No limitations - Personal History Current Tetanus/Diphtheria Vaccine: Yes Current Tetanus Diphtheria and Acellular Pertussis (TDAP): Yes Tetanus Vaccine Date: 2011 - Medical/Surgical History Hx Asthma: No Hx Chronic Respiratory Disease: No Hx Diabetes: No Hx Cardiac Disease: No Hx Renal Disease: No Hx Cirrhosis: No Hx Alcoholism: Yes Hx HIV/AIDS: No Hx Splenectomy or Spleen Trauma: No Other PMH: PMHx: alcoholism, w/d seizures , DVT, alcoholic gastritis, schizoaffective disorder, depression, PTSD, ECT. PSHx: ACL tear, 2 LUMBAR DISCS REMOVED, R T/F fracture,. Anaesthesia complication. linda thumbs, linda wrists, massive concussion - Family History Significant Family History: No pertinent family hx - Social History Smoking Status: Light smoker Alcohol Use: Heavy Drug Use: None Constitutional: Initial Vital Signs Temperature (C) 36.6 C 11/04/17 23:16 Heart Rate 100 11/04/17 23:16 Respiratory Rate 17 11/04/17 23:16 Blood Pressure 137/86 H 11/04/17 23:16 O2 Sat (%) 97 11/04/17 23:16 O2 Delivery Mode Room Air Allergies/Adverse Reactions: Sulfa (Sulfonamide Antibiotics) Allergy (Unknown, Verified 11/04/17 23:18) Rash tetracycline [Tetracycline] Allergy (Unknown, Verified 11/04/17 23:18) Rash melon Allergy (Verified 11/04/17 23:18) Tingling of mouth/throat niacin Allergy (Verified 11/04/17 23:18) Rash watermelon Allergy (Verified 11/04/17 23:18) Tingling of mouth/throat Home Medications: Medication Instructions Recorded Amitriptyline HCl [Elavil 50 mg 25 mg PO HS 2 Days tab 11/02/17 (*)] Naltrexone HCl 50 mg PO DAILY 2 Days tablet 11/02/17 OXcarbazepine [Trileptal 300mg (*)] 300 mg PO BID 2 Days tab 11/02/17 Medical Decision Making ED Course/Re-evaluation: The patient is intoxicated, this is his baseline. He is ambulatory. He denies having any complaints. He is not welcome at the [facility]. He does not wish to stop drinking. I will discharge him at this time. Differential Diagnosis: Partial list of the Differential diagnosis considered include but were not limited to; intoxication, head injury, polysubstance abuse and although unlikely based on the history and physical exam, I also considered infection. I discussed these differential diagnoses and the plan with the patient as well as the usual and expected course. The patient understands that the diagnosis is provisional and that in medicine we are not always correct and that further workup is often warranted. Usual and customary warnings were given. All of the patient's questions were answered. The patient was instructed to return to the emergency department should the symptoms at all worsen or return, otherwise to followup with the physician as we discussed. Departure - Departure Disposition: Home, Routine, Self-Care Clinical Impression: Alcohol dependence Qualifiers: Substance use status: uncomplicated Qualified Code(s): F10.20 - Alcohol dependence, uncomplicated Condition: Fair Instructions: Alcohol Intoxication (ED) Referrals: NONE *PRIMARY CARE P,. [Primary Care Provider] - As per Instructions
== END 2017-11-04 23:39 | disposition home or self-care (01) ==
DX: F10.20 Alcohol dependence, uncomplicated (principal); F17.200 Nicotine dependence, unspecified, uncomplicated

== ENCOUNTER 2017-12-13 19:20 | Emergency (ER) | payer OTHER, MEDICAID ==
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
[2017-12-14 04:44] VITALS: BP 143/67
== END 2017-12-14 04:43 | disposition home or self-care (01) ==
DX: F10.920 Alcohol use, unspecified with intoxication, uncomplicated (principal); F17.200 Nicotine dependence, unspecified, uncomplicated

== ENCOUNTER 2017-12-17 01:26 | Emergency (ER) | payer OTHER, MEDICAID ==
--- NOTE | 2017-12-17 01:31 | EDPHY ---
H & P Time Seen by Provider: 12/17/17 01:31 HPI/ROS: HPI CHIEF COMPLAINT: Medical clearance for chcf. HISTORY OF PRESENT ILLNESS: Patient 52-year-old male who presents emergency for medical clearance for chcf. He complains of right lateral ankle swelling and pain. Unclear how injury this. He is highly intoxicated with alcohol. Additionally on exam there is some swelling to the left parotid region on the face. It is tender palpation there is no significant redness or skin changes. The patient does not know how long it has been swollen and is unsure or what happened. He denies any trauma. Past Medical History: History of alcoholism, GERD, ACL Past Surgical History: Denies recent surgery Social History: Pre homeless, daily alcohol use. Admits to large amount of alcohol this evening. Family History: Noncontributory ROS REVIEW OF SYSTEMS: A comprehensive 10 point review of systems is otherwise negative aside from elements mentioned in the history of present illness. Exam Constitutional intoxicated, smells of alcohol triage nursing summary reviewed, vital signs reviewed, awake/alert. Eyes normal conjunctivae and sclera, EOMI, PERRLA. HENT face: Mild tender palpation over the left parotid region, swelling noted , no signs of Abrahan's on oropharynx exam, no facial cellulitis seen, normal inspection, atraumatic, moist mucus membranes, no epistaxis, neck supple/ no meningismus, no raccoon eyes. Respiratory clear to auscultation bilaterally, normal breath sounds, no respiratory distress, no wheezing. Cardiovascular rate normal, regular rhythm, no murmur, no edema, distal pulses normal. Gastrointestinal soft, non-tender, no rebound, no guarding, normal bowel sounds, no distension, no pulsatile mass. Genitourinary no CVA tenderness. Musculoskeletal additionally right ankle: Mild tender palpation over the right lateral malleolus, otherwise neurovascular intact good distal pulse, good cap refill, no significant swelling to the foot, full range of motion but has pain with range of motion. no midline vertebral tenderness, full range of motion, no calf swelling, no tenderness of extremities, no meningismus, good pulses, neurovascularly intact. Skin pink, warm, & dry, no rash, skin atraumatic. Neurologic awake, alert and oriented x 3, AAOx3, moves all 4 extremities equally, motor intact, sensory intact, CN II-XII intact, normal cerebellar, normal vision, normal speech. Psychiatric normal mood/affect. Heme/Lymph/Immune no lymphadenopathy. Differential Diagnosis: Includes but is not limited to in a particular order right ankle sprain, right ankle contusion, fracture additionally swelling to the face could be cellulitis, parotid gland infection, stone, dental infection Medical Decision Making: Plan for this patient x-ray right ankle, additionally CT maxillofacial with IV contrast. Check basic blood work. Re-evaluate. Re-evaluation: X-ray of the left ankle reviewed by myself. Soft tissue swelling. But no fracture. Image interpreted by myself. No significant malalignment. 0248: CT scan of the face shows very mild and subtle swelling of the left parotid gland. No abscess. Patient blood work, x-ray and CT reviewed. Is possibly has a very early parotid infection. There is no abscess. I will place him on Augmentin. 1st dose given in the emergency room. Prescription for chcf as well. As for his ankle I do not appreciate acute fracture. Soft tissue swelling. Most likely ankle sprain. Recommend anti-inflammatory pain medicine, ice and elevation. Additionally return precautions discussed with the patient understands return emergency room if develops worsening pain fever facial swelling trouble swallowing further questions or concerns. Recommend refraining from drinking alcohol. Antibiotic as prescribed. Source: Patient, Police, EMS - Personal History Tetanus Vaccine Date: 2011 - Medical/Surgical History Hx Asthma: No Hx Chronic Respiratory Disease: No Hx Diabetes: No Hx Cardiac Disease: No Hx Renal Disease: No Hx Cirrhosis: No Hx Alcoholism: Yes Hx HIV/AIDS: No Hx Splenectomy or Spleen Trauma: No Other PMH: PMHx: alcoholism, w/d seizures , DVT, alcoholic gastritis, schizoaffective disorder, depression, PTSD, ECT. PSHx: ACL tear, 2 LUMBAR DISCS REMOVED, R T/F fracture,. Anaesthesia complication. linda thumbs, linda wrists, massive concussion - Social History Smoking Status: Light smoker Constitutional: Initial Vital Signs Temperature (C) 37.0 C 12/17/17 01:31 Heart Rate 110 H 12/17/17 01:31 Respiratory Rate 18 12/17/17 01:31 Blood Pressure 137/89 H 12/17/17 01:31 O2 Sat (%) 95 12/17/17 01:31 O2 Delivery Mode Room Air Allergies/Adverse Reactions: Sulfa (Sulfonamide Antibiotics) Allergy (Unknown, Verified 11/04/17 23:18) Rash tetracycline [Tetracycline] Allergy (Unknown, Verified 11/04/17 23:18) Rash melon Allergy (Verified 11/04/17 23:18) Tingling of mouth/throat niacin Allergy (Verified 11/04/17 23:18) Rash watermelon Allergy (Verified 11/04/17 23:18) Tingling of mouth/throat Home Medications: Medication Instructions Recorded Amitriptyline HCl [Elavil 50 mg 25 mg PO HS 2 Days tab 11/02/17 (*)] Naltrexone HCl 50 mg PO DAILY 2 Days tablet 11/02/17 OXcarbazepine [Trileptal 300mg (*)] 300 mg PO BID 2 Days tab 11/02/17 Amoxicillin/Clavulanate Pot 875 mg PO BID #14 tab 12/17/17 [Augmentin 875 MG TAB (*)] Medical Decision Making - Data Points Laboratory Results: Laboratory Results 12/17/17 01:50 12/17/17 01:50 12/17/17 12/17/17 01:50 01:50 WBC 11.68 10^3/uL H 10^3/uL (3.80-9.50) RBC 5.27 10^6/uL 10^6/uL (4.40-6.38) Hgb 16.7 g/dL g/dL (13.7-17.5) Hct 46.8 % % (40.0-51.0) MCV 88.8 fL fL (81.5-99.8) MCH 31.7 pg pg (27.9-34.1) MCHC 35.7 g/dL g/dL (32.4-36.7) RDW 13.2 % % (11.5-15.2) Plt Count 261 10^3/uL 10^3/uL (150-400) MPV 10.0 fL fL (8.7-11.7) Neut % (Auto) 58.4 % % (39.3-74.2) Lymph % (Auto) 32.9 % % (15.0-45.0) Crane % (Auto) 7.5 % % (4.5-13.0) Eos % (Auto) 0.5 % L % (0.6-7.6) Baso % (Auto) 0.4 % % (0.3-1.7) Nucleat RBC Rel Count 0.0 % % (0.0-0.2) Absolute Neuts (auto) 6.81 10^3/uL H 10^3/uL (1.70-6.50) Absolute Lymphs (auto) 3.84 10^3/uL H 10^3/uL (1.00-3.00) Absolute Monos (auto) 0.88 10^3/uL H 10^3/uL (0.30-0.80) Absolute Eos (auto) 0.06 10^3/uL 10^3/uL (0.03-0.40) Absolute Basos (auto) 0.05 10^3/uL 10^3/uL (0.02-0.10) Absolute Nucleated RBC 0.00 10^3/uL 10^3/uL (0-0.01) Immature Gran % 0.3 % % (0.0-1.1) Immature Gran # 0.04 10^3/uL 10^3/uL (0.00-0.10) Sodium 145 mEq/L mEq/L (135-145) Potassium 4.0 mEq/L mEq/L (3.5-5.2) Chloride 107 mEq/L mEq/L (97-110) Carbon Dioxide 17 mEq/l L mEq/l (22-31) Anion Gap 21 mEq/L H mEq/L (8-16) BUN 17 mg/dL mg/dL (7-23) Creatinine 1.1 mg/dL mg/dL (0.7-1.3) Estimated GFR > 60 Glucose 91 mg/dL mg/dL (70-100) Calcium 9.2 mg/dL mg/dL (8.5-10.4) Ethyl Alcohol 273 mg/dL H mg/dL (0-10) Departure - Departure Disposition: Home, Routine, Self-Care Clinical Impression: Parotid discomfort Ankle sprain Qualifiers: Encounter type: initial encounter Involved ligament of ankle: unspecified ligament Laterality: left Qualified Code(s): S93.402A - Sprain of unspecified ligament of left ankle, initial encounter Condition: Good Instructions: Ankle Sprain (ED), Sialoadenitis (ED) Additional Instructions: 1. Medically cleared for chcf. 2. Ice your ankle. 3. Antibiotics as prescribed 4. Return to the emergency room if you have worsening pain swelling questions or concerns 5. Please take the antibiotic for the left facial parotid swelling. Possible early infection. Referrals: NONE *PRIMARY CARE P,. [Primary Care Provider] - As per Instructions Prescriptions: Amoxicillin/Clavulanate Pot [Augmentin 875 MG TAB (*)] 875 mg PO BID #14 tab
[2017-12-17 01:56] LABS: PLATELET COUNT 261 10^3/uL (150-400)
[2017-12-17] MEDS ORDERED: IOPAMIDOL (ISOVUE-300) 100 ML BTL ONE (02:11)
[2017-12-17] MEDS ORDERED: AMOXICILLIN/CLAVULANATE POT 875/125 MG TAB PO ONE (02:48)
[2017-12-17 02:58] VITALS: BP 123/70
== END 2017-12-17 02:56 | disposition home or self-care (01) ==
DX: S93.402A Sprain of unspecified ligament of left ankle, initial encounter (principal); K11.9 Disease of salivary gland, unspecified; F17.200 Nicotine dependence, unspecified, uncomplicated; X58.XXXA Exposure to other specified factors, initial encounter
CPT/HCPCS: 70487; 73610; 99285; Q9967; G0480

== ENCOUNTER 2017-12-17 14:14 | Emergency (ER) | payer OTHER, MEDICAID ==
[2017-12-17] MEDS ORDERED: chlordiazePOXIDE 25 MG CAP PO ONE (14:34)
[2017-12-17] MEDS ORDERED: chlordiazePOXIDE 25 MG CAP ONE (14:37)
[2017-12-17] MEDS ORDERED: AMOXICILLIN/CLAVULANATE POT 875/125 MG TAB PO ONE ×2 (14:44→14:51)
--- NOTE | 2017-12-17 15:02 | EDPHY ---
H & P Smoking Status: Light smoker Time Seen by Provider: 12/17/17 14:16 HPI/ROS: CHIEF COMPLAINT: M1 hold, feeling suicidal HISTORY OF PRESENT ILLNESS: 52-year-old male who was just released from the [facility] snf presents feeling suicidal. He states that he would take a gun and shoot himself. He states "my family has a lot of guns". He denies homicidal ideation. Denies auditory visual hallucinations. He states "I am sick of feeling depressed and I am sick of drinking alcohol". Last drink of alcohol was last night. The patient was seen in the emergency department manager gas around 1:00 a.m. For left-sided facial swelling. He had a CT scan which revealed a swelling of the parotid gland without evidence of abscess or stone. He was started on antibiotics. He also had an x-ray taken of his right ankle which revealed ankle sprain. He denies dysphagia. REVIEW OF SYSTEMS: Constitutional: No fever, no chills. Eyes: No double or blurry vision. ENT: No sore throat. Respiratory: No cough, no shortness of breath. Cardiac: No chest pain. Gastrointestinal: No abdominal pain, vomiting or diarrhea. Genitourinary: No dysuria. Musculoskeletal: No neck or back pain. Skin: No rashes. Neurological: No headache. (Jacqueline Burton) Past Medical/Surgical History: Alcoholism, depression (Jacqueline Burton) Social History: Recently released from snf, homeless. (Jacqueline Burton) Physical Exam: General Appearance: Alert, no distress. Patient does have swelling noted to the left anterior aspect of the face in the pre-auricular area. Minimally tender. No evidence of abscess. He is missing several teeth. There is no dental abscess. There is no gingival or buccal mucosal swelling. Afebrile. Eyes: Pupils equal and round. Extraocular motions are all intact. ENT: Mouth: Mucous membranes moist. Respiratory: No wheezing, rhonchi, or rales, lungs are clear to auscultation. Cardiovascular: Regular rate and rhythm. Gastrointestinal: Abdomen is soft and nontender, no masses, no rebound or guarding, bowel sounds normal. Neurological: Alert and oriented x 3, cranial nerves II through XII grossly intact Skin: Warm and dry, no rashes. Musculoskeletal: Nontender to palpate along the cervical, thoracic or lumbar spine. Neck is supple. Extremities: Full range of motion and no peripheral edema. Psychiatric: Patient is oriented X 3, there is no agitation. (Jacqueline Burton) Constitutional: Initial Vital Signs Temperature (C) 37.5 C 12/17/17 14:25 Heart Rate 115 H 12/17/17 14:25 Respiratory Rate 18 12/17/17 14:25 Blood Pressure 149/95 H 12/17/17 14:25 O2 Sat (%) 96 12/17/17 14:25 O2 Delivery Mode Room Air Allergies/Adverse Reactions: Sulfa (Sulfonamide Antibiotics) Allergy (Unknown, Verified 12/17/17 14:21) Rash tetracycline [Tetracycline] Allergy (Unknown, Verified 12/17/17 14:21) Rash melon Allergy (Verified 12/17/17 14:21) Tingling of mouth/throat niacin Allergy (Verified 12/17/17 14:21) Rash watermelon Allergy (Verified 12/17/17 14:21) Tingling of mouth/throat Home Medications: Medication Instructions Recorded Amoxicillin/Clavulanate Pot 875 mg PO BID #14 tab 12/17/17 [Augmentin 875 MG TAB (*)] Metoprolol Succinate 12/17/17 Prozac 10 MG (*) 12/17/17 Medical Decision Making ED Course/Re-evaluation: 52-year-old male presents to the emergency department on M1 hold feeling suicidal. Urine tox screen was negative. ETOH was 0. Patient does have a history of alcohol withdrawal seizures. He was given 50 mg of oral Librium in the emergency department. The patient does have left-sided facial swelling. I reviewed his CT scan from earlier this morning which revealed no evidence of abscess or stone. The patient was given 875 mg of the Augmentin that was prescribed to him since he has not taken another dose. The patient has been medically cleared and is awaiting mental health evaluation. (Jacqueline Burton) 0700: Signed over to Dr. Zapien, been no acute events overnight. Plan for respite placement today. (Dima Rivera) Differential Diagnosis: Depression including functional and major depression, situational depression, medication side effect, drugs and alcohol abuse. (Jacqueline Burton) Other Provider: Advised the [facility] the patient has an appointment at 4:00 p.m. At [facility]. Hold was vacated by myself. Patient will proceed to [facility] for his 4 o'clock appointment via taxi. Patient is going to be placed at a respite bed. (RupaliStephanie Llanos) Care Turn Over: Care will be turned over to Dr. Mj Christiansen at 4:00 p.m. For disposition and plan. (Jacqueline Burton) Despite above notation, this patient was actually signed out to Dr. Paty Gordillo at 4:00 p.m.. I spoke with the mental health straw hat plunger operator. Plan is for respite care to be arranged for him. There is some concern about the possibility of alcohol withdrawal seizures. His chart indicates that he has had alcohol withdrawal seizures in the past. I do not find evidence of him being in our emergency department with this problem, but he will be watched for signs of withdrawal. His care is being transferred to Dr. Rivera at 10:30 p.m.. It is hoped that there will be an appropriate place for him to be discharged to in the morning. (Paty Gordillo) - Data Points Medications Given: Discontinued Medications Amoxicillin/Clavulanate Potassium (Augmentin 875mg) 875 mg PO EDNOW ONE PRN Reason: Protocol Stop: 12/17/17 14:45 Last Admin: 12/17/17 14:51 Dose: 875 mg Amoxicillin/Clavulanate Potassium (Augmentin 875mg) 875 mg PO EDNOW ONE PRN Reason: Protocol Stop: 12/18/17 09:30 Last Admin: 12/18/17 09:41 Dose: 875 mg Chlordiazepoxide HCl (Librium) 50 mg PO EDNOW ONE Stop: 12/17/17 14:35 Last Admin: 12/17/17 14:49 Dose: 50 mg Ibuprofen (Motrin) 600 mg PO EDNOW ONE Stop: 12/18/17 10:12 Last Admin: 12/18/17 10:14 Dose: 600 mg Departure - Departure Disposition: Home, Routine, Self-Care Clinical Impression: Depression Qualifiers: Depression Type: unspecified Qualified Code(s): F32.9 - Major depressive disorder, single episode, unspecified Schizophrenia Qualifiers: Schizophrenia type: unspecified Qualified Code(s): F20.9 - Schizophrenia, unspecified Condition: Good Instructions: Schizophrenia (ED), Amoxicillin/Clavulanate Potassium (By mouth) Additional Instructions: Please continue taking Augmentin as prescribed. Proceed directly to [facility] for your appointment at 4:00 p.m. Arrangements are being made for respite bed. Referrals: NONE *PRIMARY CARE P,. [Primary Care Provider] - As per Instructions
[2017-12-18] MEDS ORDERED: AMOXICILLIN/CLAVULANATE POT 875/125 MG TAB PO ONE ×2 (09:29→15:44)
[2017-12-18] MEDS ORDERED: IBUPROFEN 600 MG TAB PO ONE ×2 (10:11→15:43)
[2017-12-18 16:04] VITALS: BP 138/76
== END 2017-12-18 16:49 | disposition home or self-care (01) ==
DX: F32.9 Major depressive disorder, single episode, unspecified (principal); F20.9 Schizophrenia, unspecified; F17.200 Nicotine dependence, unspecified, uncomplicated
CPT/HCPCS: 99285; L4350; 80305; G0480; Q9967

== ENCOUNTER 2018-01-03 07:45 | Inpatient (IN) | payer OTHER, MEDICAID ==
[2018-01-03] MEDS ORDERED: BUPIVACAINE 0.25% 30 ML SDV ONE (08:03)
[2018-01-03] MEDS ORDERED: THROMBIN (BOVINE) 5,000 UNIT VIAL TP ONE (08:03)
[2018-01-03] MEDS ORDERED: SURGIFLO MATRIX KIT WITH THROMBIN 8 ML TP ONE (08:03)
[2018-01-03] MEDS ORDERED: AVITENE POWDER 1 GM JAR TP ONE (08:03)
[2018-01-03] MEDS ORDERED: EPINEPHrine 1 MG/ML INJ ONE (08:04)
[2018-01-03] MEDS ORDERED: GENTAMICIN SULFATE 80 MG/2 ML VIAL ONE (08:04)
[2018-01-03] MEDS ORDERED: MANNITOL 20% 100 GM/500 ML BAG IV ONE (08:04)
[2018-01-03] MEDS: VECURONIUM BROMIDE 10 MG VIAL IV ONE ×2 (08:05→11:02)
[2018-01-03] MEDS ORDERED: VECURONIUM BROMIDE 10 MG VIAL ONE (08:07)
[2018-01-03 08:12] LABS: PLATELET COUNT 401 10^3/uL (150-400)
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
[2018-01-03 08:22] LABS: INR 1.03 (0.83-1.16); PROTIME(PATIENT) 13.7 SEC (12.0-15.0)
[2018-01-03] MEDS ORDERED: levETIRAcetam 1000MG/NACL 100 ML IV ONE (08:30)
[2018-01-03] MEDS ORDERED: TDAP ADULT 0.5 ML INJ (BOOSTRIX) IM ONE ×2 (08:30→09:21)
[2018-01-03] MEDS ORDERED: BACITRACIN ZINC 14.2 GM OINTTUBE TP ONE (08:36)
[2018-01-03] MEDS ORDERED: ONDANSETRON 4 MG/2 ML VIAL IVP PRN (08:57)
[2018-01-03] MEDS ORDERED: NALOXONE HCL 0.4 MG/ML INJ IVP PRN (08:57)
[2018-01-03] MEDS ORDERED: ALTEPLASE 2 MG VIAL IVP PRN (09:00)
[2018-01-03] MEDS ORDERED: fentaNYL/NACL 100 ML IV SCH (09:02)
[2018-01-03] MEDS: PROPOFOL/EMULSION 100 ML IV SCH ×3 (09:22→18:27)
--- NOTE | 2018-01-03 09:43 | ASMTLACE ---
DASH Acuity / Level of Answers: Yes Care: Did the patient have an inpatient admission? # of Emergency department Answers: 9-12 visits in the last 6 months Social determinants Answers: History of substance abuse (ETOH, street drugs, prescription drugs, etc.) Homelessness (street, longterm) Mental health diagnosis (anxiety, depression, pers onality disorders, etc.) Lack of community resources and/or lack of social support (no pcp, lives alone, transportation, elisha d) Score: 21 Date Signed: 01/03/2018 09:43 AM Electronically Signed By:Michelle Bonilla RN
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
[2018-01-03] MEDS ORDERED: SKIN ADHESIVE (DERMABOND) 1 EACH TP ONE (10:04)
[2018-01-03] MEDS ORDERED: NS 1,000 ML IV ONE (10:28)
[2018-01-03] MEDS ORDERED: NARCOTIC DRIP BAG-TOTAL ALL TYPES IV PRN (10:50)
[2018-01-03] MEDS ORDERED: LIDOCAINE 1% 300 MG/30 ML SDV ONE (11:06)
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
[2018-01-03] MEDS ORDERED: ceFAZolin 2 GM/SWFI 2 GM/20 ML SYR IVP ONE (11:45)
--- NOTE | 2018-01-03 11:46 | PDRADPN ---
Radiology Procedure Note Date of Procedure: 01/03/18 Radiologist: Ray Louis Anesthesia: Local (Specify) Pre-op Diagnosis: ICU care, trauma Post-op Diagnosis: same Indication: general venous access Procedure: RUE DL PICC Finding(s): CXR shows cath tip at cavoatrial junction, ok to use. Inf/Abcess present in the surg proc area at time of surgery?: No Complications: none
[2018-01-03] MEDS: FAMOTIDINE 20 MG/NACL 50 ML IV SCH ×2 (11:51→22:24)
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
[2018-01-03] MEDS ORDERED: SUCCINYLCHOLINE CHLORIDE 200 MG/10 ML SYR IVP ONE (16:31)
[2018-01-03] MEDS ORDERED: ETOMIDATE 40 MG/20 ML INJ ONE (16:31)
[2018-01-03] MEDS: NS 1,000 ML IV SCH (17:02)
[2018-01-03] MEDS: levETIRAcetam 750 MG in NS (SYRINGE) 50 ML IV SCH (22:24)
[2018-01-03] MEDS: CHLORHEXIDINE GLUCONATE 15 ML UDL PO SCH (22:36)
[2018-01-04] MEDS: NS 1,000 ML IV SCH ×2 (00:25→09:15)
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
[2018-01-04] MEDS: FAMOTIDINE 20 MG/NACL 50 ML IV SCH ×2 (09:10→20:43)
[2018-01-04] MEDS: CHLORHEXIDINE GLUCONATE 15 ML UDL PO SCH ×2 (09:10→20:55)
[2018-01-04] MEDS: levETIRAcetam 750 MG in NS (SYRINGE) 50 ML IV SCH ×2 (09:13→20:43)
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
[2018-01-04] MEDS: THIAMINE HCL 100 MG in NS 100 ML IV SCH (11:08)
--- NOTE | 2018-01-04 15:04 | PDINTPN ---
[place] Progress Note Assessment/Plan: Assessment: S/P Depressed skull fracture: Still not following commands. CTH stable. Encephalopathy: Likely due to CHI/concussion. ? substance abuse/sedation/ withdrawal as well. Facial Fractures: Non-operative. Respiratory Failure: Primarily due to reduced level of consciousness. Gas exchange good. Plan: Librium low-dose scheduled. Assessed for extubation. He's probably ready from pulmonary standpoint, but will hold off on extubation until level of consciousness improves. 01/04/18 15:10 Subjective: Intubated. Lightly sedated but not following commands. Objective: Vital Signs Temp Pulse Resp BP Pulse Ox 37.5 C 79 15 111/62 96 01/04/18 13:00 01/04/18 13:00 01/04/18 13:00 01/04/18 13:00 01/04/18 13:00 01/03/18 01/04/18 01/05/18 05:59 05:59 05:59 Intake Total 3000.1 Output Total 1650 Balance 1350.1 PT 13.7 SEC (12.0-15.0) 01/03/18 07:50 INR 1.03 (0.83-1.16) 01/03/18 07:50 CTH: Cortical hemorrhages stable. CXR: Left atelectasis/elevated diaphragm. Images reviewed by me. Physical Exam - Physical Exam General Appearance: alert, no apparent distress EENT: other (hematoma left temporal; facial edema) Neck: normal inspection, other (c-collar) Respiratory: normal breath sounds Cardiac/Chest: regular rate, rhythm, No edema Abdomen: normal bowel sounds, non-tender Skin: normal color, warm/dry Extremities: normal inspection Neuro/Psych: No alert, No normal mood/affect, No oriented x 3 ICD10 Worksheet Patient Problems: Problems Problem Status Onset Facial bones, closed fracture Acute Respiratory failure requiring intubation Acute Scalp laceration Acute Skull fracture with cerebral contusion Acute Abdominal pain Acute Alcohol dependence Acute Alcohol use Acute Alcoholic intoxication Acute Ankle fracture Acute Contusion of left knee Acute Dyspepsia Acute Epigastric pain Acute Pneumonia Acute Severe major depression Acute Tachycardia Acute
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
[2018-01-04] MEDS: fentaNYL/NACL 100 ML IV SCH (16:07)
[2018-01-04] MEDS: AMPICILLIN/SULBACTAM 3 GM VIAL IV SCH ×2 (18:40→23:42)
[2018-01-04] MEDS: PROPOFOL/EMULSION 100 ML IV SCH (21:18)
[2018-01-05] MEDS: PROPOFOL/EMULSION 100 ML IV SCH ×5 (01:20→23:39)
[2018-01-05] MEDS: fentaNYL/NACL 100 ML IV SCH ×2 (01:26→21:07)
[2018-01-05 04:47] LABS: PLATELET COUNT 188 10^3/uL (150-400)
[2018-01-05] MEDS: AMPICILLIN/SULBACTAM 3 GM VIAL IV SCH ×4 (06:14→23:40)
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
[2018-01-05] MEDS: THIAMINE HCL 100 MG in NS 100 ML IV SCH (09:23)
[2018-01-05] MEDS: FAMOTIDINE 20 MG/NACL 50 ML IV SCH ×2 (09:25→21:06)
[2018-01-05] MEDS: levETIRAcetam 750 MG in NS (SYRINGE) 50 ML IV SCH ×2 (10:10→21:07)
[2018-01-05] MEDS: CHLORHEXIDINE GLUCONATE 15 ML UDL PO SCH ×2 (10:12→21:06)
--- NOTE | 2018-01-05 10:29 | SOAPPROG ---
SOAP Progress Note Assessment/Plan: Assessment: Plan: 01/05/18 10:27 chi with altered mental sttus- currently dsedated and ventilated, facial fractures, skull fx will check a cxr asnow febrile.,. may need to stay intubated as secretions are increasing. if not waking g up in 1-2 days, suggest ng feedings Subjective: sedated on vent, moves all ext Objective: Vital Signs Temp Pulse Resp BP Pulse Ox 38.3 C 116 H 42 H 133/72 H 93 01/05/18 09:00 01/05/18 09:00 01/05/18 09:00 01/05/18 09:00 01/05/18 09:00 Microbiology 01/04/18 15:50 - Final Sputum, Induced/Suctioned Laboratory Results 01/05/18 04:20 01/05/18 04:20 01/04/18 01/05/18 01/06/18 05:59 05:59 05:59 Intake Total 3000.1 2929 Output Total 1650 1250 65 Balance 1350.1 1679 -65 PT 13.7 SEC (12.0-15.0) 01/03/18 07:50 INR 1.03 (0.83-1.16) 01/03/18 07:50 lungs clear, abd soft. heart nml [id number] ICD10 Worksheet Patient Problems: Problems Problem Status Onset Facial bones, closed fracture Acute Respiratory failure requiring intubation Acute Scalp laceration Acute Skull fracture with cerebral contusion Acute Abdominal pain Acute Alcohol dependence Acute Alcohol use Acute Alcoholic intoxication Acute Ankle fracture Acute Contusion of left knee Acute Dyspepsia Acute Epigastric pain Acute Pneumonia Acute Severe major depression Acute Tachycardia Acute
--- NOTE | 2018-01-05 12:05 | PDINTPN ---
[place] [place] [facility] Progress Note Assessment/Plan: Assessment: S/P Depressed skull fracture: Still not following commands. Frontal hemorrhage: Tiny, slight increase in size Encephalopathy: Likely due to CHI/concussion. ? substance abuse/sedation/ withdrawal as well. Facial Fractures: Non-operative. Respiratory Failure: Primarily due to reduced level of consciousness. Gas exchange good, but has had increased secretions. Myoclonic activity: Brief (<1 minute), ? shivering vs Sz. Plan: Librium low-dose scheduled. Await sputum Cx. Continue Unasyn, recheck CXR 01/06. He's probably ready to extubate from pulmonary standpoint, but will hold off on extubation until level of consciousness improves and we're more confident he's not going to to through severe withdrawal. 01/05/18 12:07 Subjective: Intubated, sedated. Objective: Vital Signs Temp Pulse Resp BP Pulse Ox 37.9 C 89 24 H 103/58 L 93 01/05/18 11:00 01/05/18 11:45 01/05/18 11:45 01/05/18 11:00 01/05/18 11:45 Microbiology 01/04/18 15:50 - Final Sputum, Induced/Suctioned Laboratory Results 01/05/18 04:20 01/05/18 04:20 01/04/18 01/05/18 01/06/18 05:59 05:59 05:59 Intake Total 3000.1 2929 Output Total 1650 1250 95 Balance 1350.1 1679 -95 PT 13.7 SEC (12.0-15.0) 01/03/18 07:50 INR 1.03 (0.83-1.16) 01/03/18 07:50 CTH: Increased frontal hemorrhage, now 5 mm. Otherwise no change. Images reviewed. Sputum: Stain multiple organisms. Cx pending. Physical Exam - Physical Exam General Appearance: no apparent distress, unresponsive, No alert EENT: normal ENT inspection Neck: normal inspection Respiratory: lungs clear, normal breath sounds Cardiac/Chest: regular rate, rhythm, No edema Abdomen: normal bowel sounds, non-tender Skin: warm/dry Extremities: non-tender Neuro/Psych: No alert ICD10 Worksheet Patient Problems: Problems Problem Status Onset Facial bones, closed fracture Acute Respiratory failure requiring intubation Acute Scalp laceration Acute Skull fracture with cerebral contusion Acute Abdominal pain Acute Alcohol dependence Acute Alcohol use Acute Alcoholic intoxication Acute Ankle fracture Acute Contusion of left knee Acute Dyspepsia Acute Epigastric pain Acute Pneumonia Acute Severe major depression Acute Tachycardia Acute
--- NOTE | 2018-01-05 15:24 | ASMTCMCOM ---
CM Note CM Note Notes: Attempted to call two numbers listed in patients chart: the number for his 'former spouse' Cheryl was answered by someone who was not Cheryl and who did not know patient. I called his 'mother' Samantha's number, and was directed to a voicemail. I didn't leave a message since there was no identifier on the outgoing message. I also called and left a message for Officer Fadi with the [facility] Homeless Outreach Team ([phone]) to see if he knows patient. Patient is still not following commands or responding. He is likely ready for extubation from a pulmonary standpoint, but they will hold off on extubation until his LOC improves and it's determined that he's not going through severe withdrawl. Date Signed: 01/05/2018 03:23 PM Electronically Signed By:Michelle Bonilla RN
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
[2018-01-05] MEDS: NS 1,000 ML IV SCH (17:32)
[2018-01-06] MEDS: AMPICILLIN/SULBACTAM 3 GM VIAL IV SCH ×2 (05:59→14:18)
[2018-01-06] MEDS: CHLORHEXIDINE GLUCONATE 15 ML UDL PO SCH ×2 (08:18→21:23)
[2018-01-06] MEDS: THIAMINE HCL 100 MG in NS 100 ML IV SCH (08:18)
[2018-01-06] MEDS: levETIRAcetam 750 MG in NS (SYRINGE) 50 ML IV SCH ×2 (08:18→21:22)
[2018-01-06] MEDS: FAMOTIDINE 20 MG/NACL 50 ML IV SCH ×2 (08:18→21:22)
--- NOTE | 2018-01-06 09:44 | SOAPPROG ---
SOAP Progress Note Assessment/Plan: Assessment: SP LEFT DEPRESSED SKULL FX/ NO REAL IMPROVEMENT/LARGELY UNRESPONSIVE MOVES ALL EXTREM BUT NOT PURPOSEFUL CT PENDING RESULTS AFEBRILE STILL ON VENT CHEST CLEAR COR RR ABD SOFT Plan:CONTINUE VENT/ PLAN PER NS 01/06/18 09:39 Objective: Vital Signs Temp Pulse Resp BP Pulse Ox 37.4 C 98 12 130/72 H 97 01/06/18 08:00 01/06/18 08:00 01/06/18 08:00 01/06/18 08:00 01/06/18 08:00 Microbiology 01/04/18 15:50 - Final Sputum, Induced/Suctioned Laboratory Results 01/05/18 04:20 01/05/18 04:20 01/05/18 01/06/18 01/07/18 05:59 05:59 05:59 Intake Total 2929 2419.5 Output Total 1250 775 Balance 1679 1644.5 PT 13.7 SEC (12.0-15.0) 01/03/18 07:50 INR 1.03 (0.83-1.16) 01/03/18 07:50 ICD10 Worksheet Patient Problems: Problems Problem Status Onset Facial bones, closed fracture Acute Respiratory failure requiring intubation Acute Scalp laceration Acute Skull fracture with cerebral contusion Acute Abdominal pain Acute Alcohol dependence Acute Alcohol use Acute Alcoholic intoxication Acute Ankle fracture Acute Contusion of left knee Acute Dyspepsia Acute Epigastric pain Acute Pneumonia Acute Severe major depression Acute Tachycardia Acute
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
--- NOTE | 2018-01-06 12:11 | SOAPPROG ---
SOAP Progress Note Assessment/Plan: Assessment: SP LEFT DEPRESSED SKULL FX/ NO REAL IMPROVEMENT/LARGELY UNRESPONSIVE MOVES ALL EXTREM BUT NOT PURPOSEFUL CT PENDING RESULTS AFEBRILE STILL ON VENT CHEST CLEAR COR RR ABD SOFT Plan:CONTINUE VENT/ PLAN PER NS 01/06/18 09:39 01/06/18 12:11 cxr suggests RLL atelectasis/ consider bronch before extubation Objective: Vital Signs Temp Pulse Resp BP Pulse Ox 37.4 C 92 14 120/73 96 01/06/18 08:00 01/06/18 11:36 01/06/18 11:36 01/06/18 10:00 01/06/18 11:36 Microbiology 01/04/18 15:50 - Final Sputum, Induced/Suctioned Laboratory Results 01/05/18 04:20 01/05/18 04:20 01/05/18 01/06/18 01/07/18 05:59 05:59 05:59 Intake Total 2929 2419.5 Output Total 1250 775 Balance 1679 1644.5 PT 13.7 SEC (12.0-15.0) 01/03/18 07:50 INR 1.03 (0.83-1.16) 01/03/18 07:50 ICD10 Worksheet Patient Problems: Problems Problem Status Onset Facial bones, closed fracture Acute Respiratory failure requiring intubation Acute Scalp laceration Acute Skull fracture with cerebral contusion Acute Abdominal pain Acute Alcohol dependence Acute Alcohol use Acute Alcoholic intoxication Acute Ankle fracture Acute Contusion of left knee Acute Dyspepsia Acute Epigastric pain Acute Pneumonia Acute Severe major depression Acute Tachycardia Acute
[2018-01-06] MEDS: ERTAPENEM 1 GM VIAL IV SCH (12:15)
--- NOTE | 2018-01-06 12:17 | PDINTPN ---
Dispatch Supervisor Progress Note Assessment/Plan: Assessment: S/P Depressed skull fracture: Still not following commands. Frontal hemorrhage: Tiny, slight increase in size Encephalopathy: Likely due to CHI/concussion. ? substance abuse/sedation/ withdrawal as well. Facial Fractures: Non-operative. Respiratory Failure: Primarily due to reduced level of consciousness. Gas exchange good, but has had increased secretions. Pneumonia: Likely aspiration. On Unasyn, but Cx with resistant enterobacter. Has RLL opacification, ? mucous plugging/collapse. Myoclonic activity: Brief (<1 minute) 01/04, ? shivering vs Sz. Plan: Place NGT, start TF and Librium low-dose scheduled. Change Unasyn to Ertapenem. Consider bronch. He's probably ready to extubate from pulmonary standpoint, but will hold off on extubation until level of consciousness improves and we're more confident he's not going to to through severe withdrawal. 01/06/18 12:27 Subjective: Intubated, sedated Objective: Vital Signs Temp Pulse Resp BP Pulse Ox 37.4 C 92 14 120/73 96 01/06/18 08:00 01/06/18 11:36 01/06/18 11:36 01/06/18 10:00 01/06/18 11:36 Microbiology 01/04/18 15:50 - Final Sputum, Induced/Suctioned Laboratory Results 01/05/18 04:20 01/05/18 04:20 01/05/18 01/06/18 01/07/18 05:59 05:59 05:59 Intake Total 2929 2419.5 Output Total 1250 775 Balance 1679 1644.5 PT 13.7 SEC (12.0-15.0) 01/03/18 07:50 INR 1.03 (0.83-1.16) 01/03/18 07:50 CXR: Persistent RLL opacity. Images reviewed by me. Microbiology 01/04/18 15:50 Sputum, Induced/Suctioned - Final 01/04/18 15:50 Sputum, Induced/Suctioned Sputum Culture - Preliminary Enterobacter Cloacae Physical Exam - Physical Exam General Appearance: unresponsive EENT: other (facial edema) Neck: other (c-collar) Respiratory: lungs clear, normal breath sounds Cardiac/Chest: regular rate, rhythm, No edema Abdomen: normal bowel sounds, non-tender Skin: normal color, warm/dry Extremities: normal inspection Neuro/Psych: No alert, No normal mood/affect ICD10 Worksheet Patient Problems: Problems Problem Status Onset Facial bones, closed fracture Acute Respiratory failure requiring intubation Acute Scalp laceration Acute Skull fracture with cerebral contusion Acute Abdominal pain Acute Alcohol dependence Acute Alcohol use Acute Alcoholic intoxication Acute Ankle fracture Acute Contusion of left knee Acute Dyspepsia Acute Epigastric pain Acute Pneumonia Acute Severe major depression Acute Tachycardia Acute
[2018-01-06] MEDS: PROPOFOL/EMULSION 100 ML IV SCH ×2 (12:18→18:29)
[2018-01-06] MEDS: NS 1,000 ML IV SCH (14:22)
[2018-01-06] MEDS ORDERED: LIDOCAINE 1% 300 MG/30 ML SDV MISC ONE (14:38)
[2018-01-06] MEDS ORDERED: LIDOCAINE 2% JELLY 5 ML TUBE TP ONE (14:38)
--- NOTE | 2018-01-06 15:38 | GPN ---
[f rep st] PROCEDURE NOTE DATE OF PROCEDURE: 01/06/2018 PROCEDURE: Flexible fiberoptic bronchoscopy. REASON FOR PROCEDURE: Respiratory failure with probable retained secretions. PROCEDURE IN DETAIL: Risks and benefits of the procedure were explained over the phone to the patien t's mother, who agreed to proceed. The entire procedure was performed in the patient's intensive car e unit room, with blood pressure, EKG, and oximetry monitoring. It was my assessment that there was no risk of airborne infection from the procedure. After an appropriate time-out, 3 cc of 1% lidocain e was instilled into the patient's endotracheal tube. The bronchoscope was advanced through the endo tracheal tube. The trachea was clear of secretions. On the right side, there were occlusive plugs i n the right bronchus intermedius, which were suctioned. I had removed the bronchoscope once to clear the channel. I then reintroduced the bronchoscope and sucked out remaining secretions until the air ways were clear. I then turned to the left-sided airways, where I encountered no secretions. I then returned to the right-sided airways, where I did a small volume lavage of the right lower lobe. All airways were clear of secretions at the end of the procedure. There were no endobronchial abnormali ties. The patient tolerated the procedure well. No specimens were sent. There was no blood loss. /[id number]/MODL
[2018-01-07] MEDS: PROPOFOL/EMULSION 100 ML IV SCH ×5 (00:24→19:21)
[2018-01-07] MEDS: NS 1,000 ML IV SCH ×3 (00:52→12:36)
[2018-01-07] MEDS: fentaNYL/NACL 100 ML IV SCH (03:46)
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
[2018-01-07] MEDS: ERTAPENEM 1 GM VIAL IV SCH (08:48)
[2018-01-07] MEDS: CHLORHEXIDINE GLUCONATE 15 ML UDL PO SCH ×2 (08:48→20:02)
[2018-01-07] MEDS: FAMOTIDINE 20 MG/NACL 50 ML IV SCH ×2 (08:49→20:02)
[2018-01-07] MEDS: THIAMINE HCL 100 MG in NS 100 ML IV SCH (08:49)
[2018-01-07] MEDS: levETIRAcetam 750 MG in NS (SYRINGE) 50 ML IV SCH ×2 (08:50→21:38)
[2018-01-07] MEDS ORDERED: PROTOCOL MAGNESIUM 1 DOSE IV PRN (10:09)
[2018-01-07] MEDS ORDERED: PROTOCOL CALCIUM 1 DOSE IV PRN (10:09)
[2018-01-07] MEDS ORDERED: FUROSEMIDE 20 MG/2 ML VIAL IVP ONE (10:09)
[2018-01-07] MEDS ORDERED: PROTOCOL K PHOSPHATE 1 DOSE IV PRN (10:09)
[2018-01-07] MEDS ORDERED: PROTOCOL POTASSIUM 1 DOSE MISC PRN (10:09)
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
[2018-01-07] MEDS ORDERED: POTASSIUM CL 10 MEQ TAB TUBE ONE (12:08)
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
--- NOTE | 2018-01-07 16:26 | ASMTCMCOM ---
CM Note CM Note Notes: Patient continues on the vent. Head CT Scan found bleed to be increasing. Patient has completed Adv Directives and named a MPOA. Assistance Coordinator checked with MPOA who relinquished his role due to conflict of interest. Family present and they selected his mother, Samantha to be the Proxy. Patient's wallet and CP found in Security and given to family. Date Signed: 01/07/2018 04:25 PM Electronically Signed By:Comfort Corbett LCSW
[2018-01-07] MEDS ORDERED: POTASSIUM CL 20 MEQ/15 ML UDCUP TUBE ONE (19:30)
[2018-01-08] MEDS: PROPOFOL/EMULSION 100 ML IV SCH ×4 (02:14→21:11)
[2018-01-08 05:06] LABS: PLATELET COUNT 220 10^3/uL (150-400)
[2018-01-08] MEDS: fentaNYL/NACL 100 ML IV SCH (06:13)
[2018-01-08] MEDS ORDERED: POTASSIUM CL 20 MEQ/15 ML UDCUP TUBE ONE (06:30)
[2018-01-08] MEDS: THIAMINE HCL 100 MG in NS 100 ML IV SCH (09:14)
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
[2018-01-08] MEDS: CHLORHEXIDINE GLUCONATE 15 ML UDL PO SCH ×2 (09:29→21:11)
[2018-01-08] MEDS: FAMOTIDINE 20 MG/NACL 50 ML IV SCH (09:29)
[2018-01-08] MEDS: levETIRAcetam 750 MG in NS (SYRINGE) 50 ML IV SCH (09:29)
[2018-01-08] MEDS: ERTAPENEM 1 GM VIAL IV SCH (09:33)
[2018-01-08] MEDS: NS 1,000 ML IV SCH (09:41)
[2018-01-08] MEDS ORDERED: MAGNESIUM HYDROXIDE 30 ML UDCUP PO PRN (10:09)
[2018-01-08] MEDS ORDERED: BISACODYL 10 MG SUPP PR PRN (10:09)
[2018-01-08] MEDS ORDERED: LACTULOSE 20 GM/30 ML UDCUP PO PRN (10:09)
[2018-01-08] MEDS ORDERED: POLYETHYLENE GLYCOL 3350 17 GM PKT PO PRN (10:09)
[2018-01-08] MEDS ORDERED: FUROSEMIDE 20 MG/2 ML VIAL IVP ONE (10:10)
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
[2018-01-08] MEDS ORDERED: NS W/ 20 KCl/L 1,000 ML IV SCH (10:15)
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
[2018-01-08] MEDS: FAMOTIDINE 20 MG TAB TUBE SCH (21:10)
[2018-01-08] MEDS: SENNOSIDES/DOCUSATE SODIUM TAB PO SCH (21:10)
[2018-01-08] MEDS: levETIRAcetam 500 MG/5 ML UDCUP TUBE SCH (21:11)
[2018-01-08] MEDS ORDERED: POTASSIUM Cl (KCl) 20 MEQ in NS 1,000 ML IV SCH (21:30)
[2018-01-09] MEDS: PROPOFOL/EMULSION 100 ML IV SCH (02:25)
[2018-01-09] MEDS: fentaNYL/NACL 100 ML IV SCH (02:26)
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
[2018-01-09] MEDS: THIAMINE HCL 100 MG TAB TUBE SCH (09:00)
[2018-01-09] MEDS: FAMOTIDINE 20 MG TAB TUBE SCH (09:00)
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
[2018-01-09] MEDS: ERTAPENEM 1 GM VIAL IV SCH (09:30)
[2018-01-09] MEDS ORDERED: LIDOCAINE 1% 300 MG/30 ML SDV MISC ONE (09:30)
[2018-01-09] MEDS ORDERED: LIDOCAINE 2% JELLY 5 ML TUBE TP ONE (09:30)
[2018-01-09] MEDS: CHLORHEXIDINE GLUCONATE 15 ML UDL PO SCH (09:32)
[2018-01-09] MEDS: SENNOSIDES/DOCUSATE SODIUM TAB PO SCH ×2 (09:32→22:01)
[2018-01-09] MEDS ORDERED: POTASSIUM Cl (KCl) 50 ML IV ONE ×2 (09:34→19:41)
[2018-01-09] MEDS ORDERED: levETIRAcetam 750 MG in NS (SYRINGE) 50 ML IV ONE (09:45)
[2018-01-09] MEDS ORDERED: FUROSEMIDE 20 MG/2 ML VIAL IVP ONE (10:10)
[2018-01-09] MEDS: levETIRAcetam 500 MG/5 ML UDCUP TUBE SCH (11:21)
--- NOTE | 2018-01-09 12:31 | GPN ---
[f rep st] PROCEDURE NOTE DATE OF PROCEDURE: 01/09/2018 PROCEDURE: Therapeutic bronchoscopy. INDICATION: Persistent secretions and improving pneumonia in a patient on the ventilator. This proc edure is being done to remove secretions prior to possible extubation. PROCEDURE: The procedure was performed in the intensive care unit. Informed consent was obtained fr om the patient's mother. Appropriate time-out was performed. The patient was sedated; no additional conscious sedation was needed. 1% lidocaine, approximately 20 mL, was used for topical anesthesia o f the airways. The fiberoptic bronchoscope was passed via an adapter on the end of the patient's endotracheal tube a nd into the distal trachea. There were thick purulent secretions in the trachea and in the mainstem bronchi bilaterally. These were removed with suction and lavage without significant problem. They w ere modest in amounts but appeared to fill the airways. Distal secretions were significantly less. Once all secretions were removed, the airways remained fairly clear. Anatomy was normal bilaterally. There were no endobronchial lesions. Cultures were obtained. The patient tolerated the procedure well. There were no complications. Vital signs and oxygen satur ation on the ventilator remained stable throughout the procedure. /[id number]/MODL
--- NOTE | 2018-01-09 14:50 | ASMTCMCOM ---
CM Note CM Note Notes: Family meeting has been scheduled for tomorrow, 01-10-2018 @ 12:30 with patient's mother, Samantha and his brother Jacinta attending. CM will follow. Date Signed: 01/09/2018 02:49 PM Electronically Signed By:Mariel Reddy LCSW
--- NOTE | 2018-01-09 16:04 | CPEKG ---
Heart Rate: 85 RR Interval: 706 P-R Interval: 180 QRSD Interval: 90 QT Interval: 384 QTC Interval: 457 P [place]: 76 QRS [place]: 74 T Wave [place]: 1 EKG Severity - ABNORMAL ECG - EKG Impression: SINUS RHYTHM Electronically Signed By: Sander Harris 10-Jan-2018 15:52:58
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
[2018-01-09] MEDS: FAMOTIDINE 20 MG/NACL 50 ML IV SCH (20:01)
[2018-01-09] MEDS: levETIRAcetam 750 MG in NS (SYRINGE) 50 ML IV SCH (20:13)
[2018-01-09] MEDS ORDERED: levETIRAcetam 750 MG in NS 100 ML IV SCH (21:00)
[2018-01-09] MEDS: LORazepam 2 MG/ML INJ IVP PRN (21:47)
[2018-01-09] MEDS ORDERED: DEXMEDETOMIDINE IN 0.9 % NACL 100 ML IV SCH (23:30)
[2018-01-10 04:30] LABS: PLATELET COUNT 302 10^3/uL (150-400)
[2018-01-10] MEDS: POTASSIUM Cl (KCl) 50 ML IV SCH ×3 (06:13→08:10)
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
[2018-01-10] MEDS: levETIRAcetam 750 MG in NS (SYRINGE) 50 ML IV SCH ×2 (08:14→20:10)
[2018-01-10] MEDS: FAMOTIDINE 20 MG/NACL 50 ML IV SCH ×2 (08:14→20:31)
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
[2018-01-10] MEDS: THIAMINE HCL 100 MG TAB TUBE SCH (08:17)
[2018-01-10] MEDS: SENNOSIDES/DOCUSATE SODIUM TAB PO SCH ×2 (08:17→20:14)
[2018-01-10] MEDS: ERTAPENEM 1 GM VIAL IV SCH (09:15)
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
[2018-01-10] MEDS: IPRATROPIUM/ALBUTEROL 3 ML DEYVIAL IH SCH ×2 (15:27→20:44)
[2018-01-10] MEDS: ENOXAPARIN 40 MG/0.4 ML SYR SC SCH (16:00)
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
[2018-01-10] MEDS: D5W 1/2 NS W/ 20 KCl/L 1,000 ML IV SCH (18:46)
[2018-01-10] MEDS ORDERED: POTASSIUM Cl (KCl) 50 ML IV ONE (18:47)
[2018-01-11] MEDS ORDERED: POTASSIUM Cl (KCl) 50 ML IV ONE ×2 (04:40→19:30)
[2018-01-11] MEDS: D5W 1/2 NS W/ 20 KCl/L 1,000 ML IV SCH (04:59)
[2018-01-11] MEDS: IPRATROPIUM/ALBUTEROL 3 ML DEYVIAL IH SCH ×4 (05:35→20:33)
[2018-01-11] MEDS: FAMOTIDINE 20 MG/NACL 50 ML IV SCH ×2 (08:57→20:32)
[2018-01-11] MEDS: levETIRAcetam 750 MG in NS (SYRINGE) 50 ML IV SCH ×2 (08:57→20:33)
[2018-01-11] MEDS: ENOXAPARIN 40 MG/0.4 ML SYR SC SCH (08:57)
[2018-01-11] MEDS: THIAMINE HCL 100 MG TAB TUBE SCH (08:58)
[2018-01-11] MEDS: ERTAPENEM 1 GM VIAL IV SCH (08:58)
[2018-01-11] MEDS: SENNOSIDES/DOCUSATE SODIUM TAB PO SCH ×2 (08:58→19:28)
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
--- NOTE | 2018-01-11 11:50 | ASMTCMCOM ---
CM Note CM Note Notes: Patient remains non responsive and is scheduled for a trach and PEGG tube. Dr. Bryant requested in rounds , CM begin the search for LTAC. Referrals sent to several LTAC"S as the family was not available to discuss. Will meet with them today if they come to the hospital to talk about which ones they prefer for patient. CM will follow. Date Signed: 01/11/2018 11:49 AM Electronically Signed By:Mariel Reddy LCSW
[2018-01-11] MEDS ORDERED: MIDAZOLAM 2 MG/2 ML VIAL ONE (15:05)
[2018-01-11] MEDS ORDERED: MIDAZOLAM 2 MG/2 ML VIAL IVP ONE (15:17)
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
--- NOTE | 2018-01-11 15:54 | ASMTCMCOM ---
CM Note CM Note Notes: Response from Dawit VENEGASIza [phone]. Clarified with Iza we still need to give the family options but they have not been available to talk to today. CM will need to talk to the family during the family meeting Sunday01-14-18 at 12:00 noon to see if they prefer one facility over another. CM will follow. Date Signed: 01/11/2018 03:54 PM Electronically Signed By:Mariel Reddy LCSW
[2018-01-11] MEDS ORDERED: ACETAMINOPHEN 650 MG SUPP PR PRN (20:24)
[2018-01-12] MEDS: IPRATROPIUM/ALBUTEROL 3 ML DEYVIAL IH SCH ×4 (05:51→21:35)
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
[2018-01-12] MEDS: D5W 1/2 NS W/ 20 KCl/L 1,000 ML IV SCH ×2 (06:55→12:41)
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
[2018-01-12] MEDS: FAMOTIDINE 20 MG/NACL 50 ML IV SCH ×2 (09:41→20:47)
[2018-01-12] MEDS: levETIRAcetam 750 MG in NS (SYRINGE) 50 ML IV SCH ×2 (09:41→20:50)
[2018-01-12] MEDS: SENNOSIDES/DOCUSATE SODIUM TAB PO SCH ×2 (09:42→19:58)
[2018-01-12] MEDS: ENOXAPARIN 40 MG/0.4 ML SYR SC SCH (09:42)
[2018-01-12] MEDS: THIAMINE HCL 100 MG TAB TUBE SCH (09:42)
[2018-01-12] MEDS: ERTAPENEM 1 GM VIAL IV SCH (11:05)
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
[2018-01-13] MEDS: IPRATROPIUM/ALBUTEROL 3 ML DEYVIAL IH SCH ×4 (05:27→20:40)
[2018-01-13 06:02] LABS: PLATELET COUNT 322 10^3/uL (150-400)
[2018-01-13] MEDS ORDERED: POTASSIUM Cl (KCl) 50 ML IV ONE ×2 (06:26→22:23)
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
[2018-01-13] MEDS ORDERED: CEFAZOLIN 1 GM/DEXTROSE/50 ML BAG IV ONE (07:49)
--- NOTE | 2018-01-13 08:03 | PDANEPAE ---
ANE Past Medical History - Cardiovascular History Hx Hypertension: Yes Hx Arrhythmias: No Hx Chest Pain: No Hx Coronary Artery / Peripheral Vascular Disease: Yes Hx CHF / Valvular Disease: No Hx Palpitations: Yes Cardiovascular History Comment: PALPITATION NOT REGULARLY - Pulmonary History Hx COPD: Yes Hx Asthma/Reactive Airway Disease: No Hx Recent Upper Respiratory Infection: No Hx Oxygen in Use at Home: No Hx Sleep Apnea: Yes Sleep Apnea Screening Result - Last Documented: Positive Pulmonary History Comment: BRADY DX 2010 - Neurologic History Hx Cerebrovascular Accident: No Hx Seizures: Yes Hx Dementia: No - Endocrine History Hx Diabetes: No Hypothyroid: No Hyperthyroid: No Obesity: yes, mild - Renal History Hx Renal Disorders: No - Liver History Hx Hepatic Disorders: No - Neurological & Psychiatric Hx Hx Neurological and Psychiatric Disorders: Yes Neurological / Psychiatric History Comment: BIPOLAR. PSYCHOSIS. MAJOR DEPRESSIVE DISORDER - Cancer History Hx Cancer: No - Congenital Disorder History Hx Congenital Disorders: No - GI History Hx Gastrointestinal Disorders: Yes - Other Health History Other Health History: DVT ASSOCIATED WITH FX RT TIB/FIB 03/2015. FACIAL HYPER PIGMENTATION - Chronic Pain History Chronic Pain: Yes (rt ankle) - Surgical History Prior Surgeries: LUMBAR FUSION. RT ANKLE ORIF 03/2015. REMVL LIPOMA FROM SHLDR. ECT TREATMENTS ANE Review of Systems Review of Systems: - Exercise capacity METS Comment: unable to obtain/assess ANE Patient History - Allergies Allergies/Adverse Reactions: Sulfa (Sulfonamide Antibiotics) Allergy (Unknown, Verified 12/17/17 14:21) Rash tetracycline [Tetracycline] Allergy (Unknown, Verified 12/17/17 14:21) Rash melon Allergy (Verified 12/17/17 14:21) Tingling of mouth/throat niacin Allergy (Verified 12/17/17 14:21) Rash watermelon Allergy (Verified 12/17/17 14:21) Tingling of mouth/throat - Home Medications Home Medications: Unobtainable 01/12/18 [Last Taken Unknown] - NPO status NPO Since - Liquids (Date): 01/11/18 NPO Since - Liquids (Time): 00:00 NPO Since - Solids (Date): 01/12/18 NPO Since - Solids (Time): 00:00 - Anes Hx Hx Anesthesia Complications (with details): unable to obtain - Smoking Hx Smoking Status: Light smoker - Alcohol Use Alcohol Use: Heavy - Family Anes Hx Family Anes Hx: neg - N/A ANE Labs/Vital Signs - Labs Result Diagrams: 01/13/18 05:50 01/13/18 05:50 - Vital Signs Blood Pressure: 104/67 Heart Rate: 89 Respiratory Rate: 24 O2 Sat (%): 93 Height: 182.88 cm Weight: 101.4 kg ANE Physical Exam - Airway Neck exam: decreased ROM Mallampati Score: Unable to assesss - Pulmonary Pulmonary: bronchial breath sounds - Cardiovascular Cardiovascular: regular rate and rhythym - ASA Status ASA Status: IV ANE Anesthesia Plan Anesthesia Plan: MAC Total IV Anesthesia: Yes
[2018-01-13] MEDS ORDERED: fentaNYL 100 MCG/2 ML INJ ONE (08:23)
[2018-01-13] MEDS ORDERED: PROPOFOL 200 MG/20 ML VIAL ONE (08:23)
[2018-01-13] MEDS ORDERED: PROPOFOL/EMULSION 500 MG/50 ML BOTTLE IV ONE (08:23)
--- NOTE | 2018-01-13 08:56 | GIREPORT ---
[facility] Surgical Services - Endoscopy Department Patient Name: Jeremiah Golden Procedure Date: 01/13/2018 7:50 AM Patient Type: Inpatient Attending MD/ ER Physician: Nathan Millard MD Procedure: Upper GI endoscopy Indications: Neurogenic dysphagia, Dysphagia Providers: Nathan Millard MD Medicines: General Anesthesia Complications: No immediate complications. Description of Procedure: After obtaining informed consent, the endoscope was passed under direct vision. Throughout the procedure, the patient's blood pressure, pulse, and oxygen saturations were monitored continuously. The Endoscope was intro duced through the mouth, and advanced to the second part of duodenum. [facility] er GI endoscopy was accomplished without difficulty. The patient tolerated th e procedure well. Findings: LA Grade B (one or more mucosal breaks greater than 5 mm, not extending between the tops of two mucosal folds) esophagitis with no bleeding was found 40 cm from the incisors. A mild Schatzki ring (acquired) was found at the gastroesophageal junct ion. A medium-sized hiatal hernia was present. The entire examined stomach was normal. Placement of an externally jelena vable PEG with no T-fasteners was successfully completed. The external bumper was at the 3.0 cm marking on the tube. Estimated blood loss was minimal. The examined duodenum was normal. Estimated Blood Loss: Estimated blood loss was minimal. Post Op Diagnosis: - LA Grade B reflux esophagitis. - Mild Schatzki ring. - Medium-sized hiatal hernia. - Normal stomach. - Normal examined duodenum. - An externally removable PEG placement was successfully completed. - No specimens collected. Recommendation: - Use Protonix (pantoprazole) 40 mg PO daily. - If normal BS and non-tender abdomen may start TF @ 1300. - Refer to a dietitian to calculate caloric and free water requirements . - Thank you for allowing me to participate in the care of your patient. Attending Participation: I personally performed the entire procedure. Nathan Millard MD Nathan Millard MD 01/13/2018 8:56:07 AM This report has been signed electronicallyStceasar Millard MD Number of Addenda: 0 Note Initiated On: 01/13/2018 7:50 AM [email or web address]
[2018-01-13] MEDS ORDERED: NALOXONE HCL 0.4 MG/ML INJ IVP PRN (09:07)
[2018-01-13] MEDS ORDERED: PHENYLEPHRINE HCL 100 MCG/ML SYR IVP PRN (09:07)
[2018-01-13] MEDS ORDERED: epHEDrine SULFATE 10 MG/ML SYR IVP PRN (09:07)
[2018-01-13] MEDS ORDERED: LR 500 ML IV PRN (09:07)
--- NOTE | 2018-01-13 09:12 | POSTANESTH ---
Post Anesthetic Evaluation Cardiovascular Status: Normal, Stable Respiratory Status: Similar to Pre-op Cond. Level of Consciousness/Mental Status: Mildly Sleepy, Arousable Pain Control: Adequate, Prn Tx Ordered Nausea/Vomiting Control: Adequate, Prn Tx Ordered Complications Possibly Related to Anesthesia: None Noted
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
[2018-01-13] MEDS: levETIRAcetam 750 MG in NS (SYRINGE) 50 ML IV SCH ×2 (12:26→22:04)
[2018-01-13] MEDS: FAMOTIDINE 20 MG/NACL 50 ML IV SCH ×2 (12:27→22:04)
[2018-01-13] MEDS: SENNOSIDES/DOCUSATE SODIUM TAB PO SCH ×2 (12:28→22:04)
[2018-01-13] MEDS: THIAMINE HCL 100 MG TAB TUBE SCH (12:29)
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
[2018-01-13] MEDS: D5W 1/2 NS W/ 20 KCl/L 1,000 ML IV SCH (17:01)
[2018-01-13] MEDS: ERTAPENEM 1 GM VIAL IV SCH (21:19)
[2018-01-14] MEDS: IPRATROPIUM/ALBUTEROL 3 ML DEYVIAL IH SCH ×4 (05:30→20:30)
[2018-01-14] MEDS ORDERED: POTASSIUM CL 10 MEQ TAB PO ONE (06:06)
[2018-01-14] MEDS ORDERED: POTASSIUM CL 20 MEQ/15 ML UDCUP TUBE ONE (06:15)
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
[2018-01-14] MEDS: SENNOSIDES/DOCUSATE SODIUM TAB PO SCH (07:27)
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
[2018-01-14] MEDS: ACETAMINOPHEN 650 MG/20.3 ML UDCUP TUBE PRN ×2 (09:24→16:55)
[2018-01-14] MEDS: FAMOTIDINE 20 MG TAB TUBE SCH ×2 (09:24→21:55)
[2018-01-14] MEDS: THIAMINE HCL 100 MG TAB TUBE SCH (09:24)
[2018-01-14] MEDS: levETIRAcetam 750 MG in NS (SYRINGE) 50 ML IV SCH (09:25)
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
[2018-01-14] MEDS: VANCOMYCIN 125 MG/2.5 ML UDL TUBE SCH ×3 (12:18→21:55)
--- NOTE | 2018-01-14 14:25 | ASMTCMCOM ---
CM Note CM Note Notes: Met with mother, Samantha and brothers Adan and Jacinta. Adan and Jacinta live in [facility] and would prefer an [place]. Admissions, [facility] from [facility] was at [facility] so joined our mtg. Family would like patient to be admitted there if possible. Sent updated patient info to [facility]. [facility] reports that patient has [facility] Medicare Ins plan and will have to get auth b/4 they can admit. Date Signed: 01/14/2018 02:24 PM Electronically Signed By:Comfort Corbett LCSW
[2018-01-14] MEDS ORDERED: MAGNESIUM HYDROXIDE 30 ML UDCUP TUBE PRN (16:00)
[2018-01-14] MEDS ORDERED: POLYETHYLENE GLYCOL 3350 17 GM PKT TUBE PRN (16:00)
[2018-01-14] MEDS ORDERED: LACTULOSE 20 GM/30 ML UDCUP TUBE PRN (16:00)
[2018-01-14] MEDS: levETIRAcetam 500 MG/5 ML UDCUP TUBE SCH (21:55)
[2018-01-15] MEDS ORDERED: POTASSIUM Cl (KCl) 50 ML IV ONE ×2 (02:40→19:48)
[2018-01-15] MEDS: IPRATROPIUM/ALBUTEROL 3 ML DEYVIAL IH SCH ×4 (05:01→22:09)
[2018-01-15] MEDS: VANCOMYCIN 125 MG/2.5 ML UDL TUBE SCH ×4 (05:35→20:14)
[2018-01-15] MEDS: levETIRAcetam 500 MG/5 ML UDCUP TUBE SCH ×2 (08:08→20:14)
[2018-01-15] MEDS: ENOXAPARIN 40 MG/0.4 ML SYR SC SCH (08:08)
[2018-01-15] MEDS: FAMOTIDINE 20 MG TAB TUBE SCH ×2 (08:08→20:16)
[2018-01-15] MEDS: THIAMINE HCL 100 MG TAB TUBE SCH (08:08)
[2018-01-15] MEDS: ACETAMINOPHEN 650 MG/20.3 ML UDCUP TUBE PRN (08:08)
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
[2018-01-16] MEDS: IPRATROPIUM/ALBUTEROL 3 ML DEYVIAL IH SCH ×4 (05:37→20:57)
[2018-01-16] MEDS: VANCOMYCIN 125 MG/2.5 ML UDL TUBE SCH ×4 (06:33→22:55)
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
[2018-01-16] MEDS: FAMOTIDINE 20 MG TAB TUBE SCH ×2 (10:44→22:56)
[2018-01-16] MEDS: levETIRAcetam 500 MG/5 ML UDCUP TUBE SCH ×2 (10:45→22:55)
[2018-01-16] MEDS: THIAMINE HCL 100 MG TAB TUBE SCH (10:45)
[2018-01-16] MEDS: ENOXAPARIN 40 MG/0.4 ML SYR SC SCH (10:47)
[2018-01-16] MEDS ORDERED: ERTAPENEM 1 GM VIAL IV ONE (12:15)
[2018-01-16] MEDS ORDERED: LIDOCAINE 1% 300 MG/30 ML SDV ONE (12:27)
--- NOTE | 2018-01-16 12:58 | PDANEPAE ---
ANE Past Medical History - Cardiovascular History Hx Hypertension: Yes Hx Arrhythmias: No Hx Chest Pain: No Hx Coronary Artery / Peripheral Vascular Disease: Yes Hx CHF / Valvular Disease: No Hx Palpitations: Yes Cardiovascular History Comment: PALPITATION NOT REGULARLY - Pulmonary History Hx COPD: Yes Hx Asthma/Reactive Airway Disease: No Hx Recent Upper Respiratory Infection: No Hx Oxygen in Use at Home: No Hx Sleep Apnea: Yes Sleep Apnea Screening Result - Last Documented: Positive Pulmonary History Comment: BRADY DX 2010 - Neurologic History Hx Cerebrovascular Accident: No Hx Seizures: Yes Hx Dementia: No - Endocrine History Hx Diabetes: No Hypothyroid: No Hyperthyroid: No Obesity: yes, mild - Renal History Hx Renal Disorders: No - Liver History Hx Hepatic Disorders: No - Neurological & Psychiatric Hx Hx Neurological and Psychiatric Disorders: Yes Neurological / Psychiatric History Comment: BIPOLAR. PSYCHOSIS. MAJOR DEPRESSIVE DISORDER - Cancer History Hx Cancer: No - Congenital Disorder History Hx Congenital Disorders: No - GI History Hx Gastrointestinal Disorders: Yes - Other Health History Other Health History: DVT ASSOCIATED WITH FX RT TIB/FIB 03/2015. FACIAL HYPER PIGMENTATION - Chronic Pain History Chronic Pain: Yes (rt ankle) - Surgical History Prior Surgeries: LUMBAR FUSION. RT ANKLE ORIF 03/2015. REMVL LIPOMA FROM SHLDR. ECT TREATMENTS ANE Review of Systems Review of Systems: - Exercise capacity Exercise capacity: unable to assess ANE Patient History - Allergies Allergies/Adverse Reactions: Sulfa (Sulfonamide Antibiotics) Allergy (Unknown, Verified 12/17/17 14:21) Rash tetracycline [Tetracycline] Allergy (Unknown, Verified 12/17/17 14:21) Rash melon Allergy (Verified 12/17/17 14:21) Tingling of mouth/throat niacin Allergy (Verified 12/17/17 14:21) Rash watermelon Allergy (Verified 12/17/17 14:21) Tingling of mouth/throat - Home Medications Home medications: home medication list seen and reviewed Home Medications: Unobtainable 01/12/18 [Last Taken Unknown] - NPO status NPO Status: no food or drink >8 hours NPO Since - Liquids (Date): 01/11/18 NPO Since - Liquids (Time): 00:00 NPO Since - Solids (Date): 01/12/18 NPO Since - Solids (Time): 00:00 - Anes Hx Anes Hx: no prior problems - Smoking Hx Smoking Status: Light smoker - Alcohol Use Alcohol Use: Heavy ANE Labs/Vital Signs - Labs Result Diagrams: 01/13/18 05:50 01/16/18 06:00 - Vital Signs Vital Signs: reviewed preoperatively; see RN documention for details Blood Pressure: 138/82 Heart Rate: 102 Respiratory Rate: 18 O2 Sat (%): 100 Height: 182.88 cm Weight: 101.4 kg ANE Physical Exam - Airway Neck exam: FROM Mallampati Score: Class 2 Mouth exam: normal dental/mouth exam - Pulmonary Pulmonary: no respiratory distress - Cardiovascular Cardiovascular: regular rate and rhythym - ASA Status ASA Status: IV ANE Anesthesia Plan Anesthesia Plan: general endotracheal anesthesia Total IV Anesthesia: No
[2018-01-16] MEDS ORDERED: fentaNYL 100 MCG/2 ML INJ ONE ×3 (13:05→16:11)
[2018-01-16] MEDS ORDERED: PROPOFOL 200 MG/20 ML VIAL ONE (13:05)
[2018-01-16] MEDS ORDERED: PROPOFOL/EMULSION 500 MG/50 ML BOTTLE IV ONE ×2 (14:42→16:11)
--- NOTE | 2018-01-16 14:45 | PDRADPN ---
Radiology Procedure Note Date of Procedure: 01/16/18 Radiologist: Ray Louis Anesthesia: Local (Specify) Pre-op Diagnosis: EXISTING PICC PULLED Post-op Diagnosis: SAME Indication: IV ACCESS FOR ABX Procedure: LUE PICC Finding(s): GOOD CATH POSITION, OK TO USE Inf/Abcess present in the surg proc area at time of surgery?: No EBL: Minimal Complications: NONE
--- NOTE | 2018-01-16 15:43 | GIREPORT ---
[facility] - Endoscopy Department Patient Name: Jeremiah Golden Procedure Date: 01/16/2018 1:03 PM Patient Type: Inpatient Attending MD/ ER Physician: Nathan Millard MD Procedure: Upper GI endoscopy Indications: Dysphagia, Patient had G Tube placed on 01/14/2018. G-tube was pulled out today. Presents to attempt G-tube placement. Providers: Nathan Millard MD Medicines: Sedation Required Anesthesia Staff Assistance Complications: No immediate complications. Description of Procedure: After obtaining informed consent, the endoscope was passed under direct vision. Throughout the procedure, the patient's blood pressure, pulse, and oxygen saturations were monitored continuously. The Endoscope was intro duced through the mouth, and advanced to the second part of duodenum. Findings: LA Grade C (one or more mucosal breaks continuous between tops of 2 or more mucosal folds, less than 75% circumference) esophagitis with no bleedin g was found in the lower third of the esophagus. A deformity was found in the gastric body. Defect from prior PEG tube w as seen in gastric body. Placement of an endoscopically removable PEG with no T-fasteners was successfully completed. Attempt to go through prior PEG site was unsuccessful. The external bumper was at the 4.0 cm marking on the tube. The examined duodenum was normal. Estimated Blood Loss: Estimated blood loss: none. Post Op Diagnosis: - LA Grade C reflux esophagitis. - Post-surgical deformity in the gastric body. Defect from prior PEG tu be was seen in gastric body. - Normal examined duodenum. - No specimens collected. - Persistent gastric wall defect. Case discussed with Dr. Mott. Michelleen t to be taken to the OR to oversew defect. Recommendation: - Refer to a surgeon today to repair gastric wall defect from prior PEG tube placement. - Thank you for allowing me to participate in the care of your patient. Attending Participation: I personally performed the entire procedure. Nathan Millard MD Nathan Millard MD 01/16/2018 3:43:10 PM This report has been signed electronicallyStceasar Millard MD Number of Addenda: 0 Note Initiated On: 01/16/2018 1:03 PM [email or web address]
[2018-01-16] MEDS ORDERED: ERTAPENEM 1 GM VIAL ONE (15:48)
[2018-01-16] MEDS ORDERED: HEPARIN 1000 UNIT/1 ML MDV ONE ×2 (16:15→17:30)
--- NOTE | 2018-01-16 16:48 | ASMTCMCOM ---
CM Note CM Note Notes: Pt mother Samantha and brothers Adan and Jacinta present today, Samantha is traveling back to [place] tomorrow and will be unavailable, the contact will be Jacinta. Late in the business day today [employer] insurance denied [facility]; it sounds like [employer] denied not just [facility] but the LTAC level of care no matter the location. Peer to peer can be completed by 15:00 01/17/18 by calling [employer] director federal Dr. Boucher [phone]. This information was given to Alexia Neumann for the appeal process. If peer to peer is denied then SNF level of care will need to be explored. CM to follow. Date Signed: 01/16/2018 04:47 PM Electronically Signed By:CASSIDY Amezquita
[2018-01-16] MEDS ORDERED: NALOXONE HCL 0.4 MG/ML INJ IVP PRN (17:09)
[2018-01-16] MEDS ORDERED: fentaNYL 100 MCG/2 ML INJ IVP PRN (17:09)
[2018-01-16] MEDS ORDERED: ONDANSETRON 4 MG/2 ML VIAL IVP PRN (17:09)
--- NOTE | 2018-01-16 17:10 | POSTANESTH ---
Post Anesthetic Evaluation Cardiovascular Status: Normal, Stable, Similar to Pre-Op Cond Respiratory Status: Normal, Stable, Similar to Pre-op Cond. Level of Consciousness/Mental Status: Other, See Comment (baseline--obtunded) Pain Control: Adequate, Prn Tx Ordered Nausea/Vomiting Control: Adequate, Prn Tx Ordered
[2018-01-16] MEDS ORDERED: BUPIVACAINE 0.5% 30 ML SDV ONE (17:29)
[2018-01-17] MEDS: LORazepam 2 MG/ML INJ IVP PRN ×2 (02:42→09:11)
[2018-01-17] MEDS: VANCOMYCIN 125 MG/2.5 ML UDL TUBE SCH ×4 (05:34→21:54)
[2018-01-17] MEDS: IPRATROPIUM/ALBUTEROL 3 ML DEYVIAL IH SCH ×4 (05:44→21:52)
[2018-01-17] MEDS: D5W 1/2 NS 1,000 ML IV SCH ×3 (07:19→23:40)
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
--- NOTE | 2018-01-17 08:50 | SOAPPROG ---
SOAP Progress Note Assessment/Plan: Assessment: Plan: 01/05/18 10:27 chi with altered mental sttus- currently dsedated and ventilated, facial fractures, skull fx will check a cxr asnow febrile.,. may need to stay intubated as secretions are increasing. if not waking g up in 1-2 days, suggest ng feedings Subjective: comatose lungs cleear abd soft s/p g tube replacement and suture of stomach yesterday laparoscopic. off tube feedings at moment. no other change in status. resume tf in 1-2 days. Objective: Vital Signs Temp Pulse Resp BP Pulse Ox 37.1 C 101 H 20 113/75 96 01/17/18 08:00 01/17/18 08:00 01/17/18 08:00 01/17/18 08:00 01/17/18 08:00 Laboratory Results 01/13/18 05:50 01/16/18 23:10 01/16/18 01/17/18 01/18/18 05:59 05:59 05:59 Intake Total 1526 2437 Output Total 1725 1200 Balance -199 1237 PT 13.7 SEC (12.0-15.0) 01/03/18 07:50 INR 1.03 (0.83-1.16) 01/03/18 07:50 ICD10 Worksheet Patient Problems: Problems Problem Status Onset Ankle fracture Acute Severe major depression Acute Alcoholic intoxication Acute Alcohol use Acute Contusion of left knee Acute Abdominal pain Acute Dyspepsia Acute Tachycardia Acute Epigastric pain Acute Pneumonia Acute Alcohol dependence Acute Skull fracture with cerebral contusion Acute Scalp laceration Acute Respiratory failure requiring intubation Acute Facial bones, closed fracture Acute Ankle fracture, right Acute
[2018-01-17] MEDS: ENOXAPARIN 40 MG/0.4 ML SYR SC SCH (09:10)
[2018-01-17] MEDS: THIAMINE HCL 100 MG TAB TUBE SCH (09:10)
[2018-01-17] MEDS: FAMOTIDINE 20 MG TAB TUBE SCH ×2 (09:10→21:54)
[2018-01-17] MEDS: ACETAMINOPHEN 650 MG/20.3 ML UDCUP TUBE PRN (09:10)
[2018-01-17] MEDS: levETIRAcetam 500 MG/5 ML UDCUP TUBE SCH ×2 (09:10→21:54)
--- NOTE | 2018-01-17 12:14 | ASMTCMCOM ---
CM Note CM Note Notes: Dr. Soliman called [employer] medical writer Dr. Boucher today for peer to peer to appeal LTAC denial; the appeal is still denied. [employer] insurance case manger is Nicki Larios [phone]. Nicki reports SNF level of care is approved but cannot tell this CM which SNFs are in network. Referral sent to [facility] and information provided to Anais with [employer] in the hopes they can run pt insurance and confirm who is in network. Nicki reports three SNF denials can potentially reverse LTAC denial. After SNF denials the LTAC would need to resubmit for auth and the insurance would need the information of which SNFs denied and why. SNF placement likely to be a challenge due to pt mental health, substance use and homelessness. Pt PASRR triggered due to Bipolar and Schizophrenia diagnoses. PASRR faxed to Amena Mercado. CM to follow. Date Signed: 01/17/2018 12:14 PM Electronically Signed By:CASSIDY Amezquita
--- NOTE | 2018-01-17 13:20 | SOAPPROG ---
SOAP Progress Note Assessment/Plan: Assessment: s/p second PEG placement and surgical repair of prior gastric wall defect from initial PEG site. Reddish thick drainage at G tube site. A little concerning for infection. Keep clean and observe for signs of infection. Abdomen with BS. No erythema at the skin. Plan: Resume TF Please call with further questions. 01/17/18 13:22 Subjective: CC: Closed head injury Patient pulled PEG out yesterday. Attempt at replacing new PEG through same tract was unsuccessful. New PEG placed but patient needed laparoscopy to repair prior defect in gastric wall from initial PEG. Objective: Vital Signs Temp Pulse Resp BP Pulse Ox 37.2 C 98 18 117/72 94 01/17/18 12:07 01/17/18 12:07 01/17/18 12:07 01/17/18 12:07 01/17/18 12:07 Laboratory Results 01/13/18 05:50 01/16/18 23:10 01/16/18 01/17/18 01/18/18 05:59 05:59 05:59 Intake Total 1526 2437 Output Total 1725 1200 Balance -199 1237 PT 13.7 SEC (12.0-15.0) 01/03/18 07:50 INR 1.03 (0.83-1.16) 01/03/18 07:50 Generic Name Dose Route Start Last Admin Trade Name Freq PRN Reason Stop Dose Admin Acetaminophen 650 mg 01/11/18 20:24 01/11/18 20:34 Tylenol Rectal MD 07/10/18 20:23 650 mg Q4H PRN Administration Pain, Mild/Fever,Can't Take PO Acetaminophen 650 mg 01/14/18 08:14 01/17/18 09:10 Tylenol 650/20.3ml Oral Liquid TUBE 07/13/18 08:13 650 mg Q4 PRN Administration MILD PAIN/FEVER Albuterol/Ipratropium 3 ml 01/10/18 16:00 01/17/18 11:39 Duoneb IH 07/09/18 15:59 3 ml QID JORGE Administration Alteplase, Recombinant 2 mg 01/03/18 09:00 Cathflo Activase IVP 07/02/18 08:59 PRN PRN Per PICC line policy Bisacodyl 10 mg 01/08/18 10:09 Dulcolax Rectal MD 10/28/18 10:08 DAILY PRN Constipation Protocol Enoxaparin Sodium 40 mg 01/10/18 14:45 01/17/18 09:10 Lovenox SC 07/09/18 14:44 40 mg DAILY JORGE Administration Famotidine 20 mg 01/14/18 09:00 01/17/18 09:10 Pepcid TUBE 07/13/18 08:59 20 mg BID JORGE Administration Dextrose/Sodium Chloride 1,000 mls @ 125 mls/hr 01/17/18 06:30 01/17/18 07:19 D5w 1/2 Ns IV 07/16/18 06:29 1,000 mls CONT JORGE Administration Lactulose 20 gm 01/14/18 16:00 Cephulac TUBE 07/07/18 10:08 TID PRN Constipation Protocol Levetiracetam 750 mg 01/14/18 21:00 01/17/18 09:10 Keppra Oral Liquid TUBE 07/13/18 20:59 750 mg BID JORGE Administration Lorazepam 1 mg 01/08/18 10:13 01/17/18 09:11 Ativan Injection IVP 07/07/18 10:12 1 mg Q4HRS PRN Administration Anxiety, Unable to Take PO Magnesium Hydroxide 30 ml 01/14/18 16:00 Milk Of Magnesia TUBE 07/07/18 10:08 DAILY PRN Constipation Protocol Naloxone HCl 0.4 mg 01/03/18 08:57 Narcan IVP 07/02/18 08:56 PRN PRN Respiratory Depression Protocol Ondansetron HCl 4 mg 01/03/18 08:57 Zofran IVP 07/02/18 08:56 Q4HRS PRN Nausea/Vomiting, Can't Take PO Polyethylene Glycol 17 gm 01/14/18 16:00 Miralax TUBE 07/07/18 10:08 DAILY PRN Constipation, patient prefers Protocol Potassium Chloride 1 dose 01/07/18 10:09 Protocol Potassium MISC 07/06/18 10:08 AD PRN Pt on Electrolyte Protocol Protocol Thiamine HCl 100 mg 01/09/18 09:00 01/17/18 09:10 Vitamin B-1 TUBE 07/08/18 08:59 100 mg DAILY JORGE Administration Vancomycin HCl 125 mg 01/14/18 12:00 01/17/18 12:08 Vancocin Oral Liquid TUBE 02/13/18 11:59 125 mg QID JORGE Administration Discontinued Medications Generic Name Dose Route Start Last Admin Trade Name Freq PRN Reason Stop Dose Admin Ampicillin Sodium/Sulbactam Sodium 3 gm 01/04/18 18:00 01/06/18 14:18 Unasyn IV 02/03/18 17:59 Not Given Q6HRS [facility] Protocol Bacitracin Confirm 01/03/18 08:36 01/03/18 11:21 Bacitracin Ointment Tube Administered 01/03/18 08:37 Not Given Dose 14.2 catherine TP .STK-MED ONE Bupivacaine HCl Confirm 01/03/18 08:03 01/03/18 11:21 Sensorcaine 0.25% Sdv Administered 01/03/18 08:04 Not Given Dose 30 ml .ROUTE .STK-MED ONE Bupivacaine HCl Confirm 01/16/18 17:29 01/16/18 18:16 Sensorcaine 0.5% Vial Administered 01/16/18 17:30 Not Given Dose 30 ml .ROUTE .STK-MED ONE Calcium Gluconate 1 dose 01/07/18 10:09 Protocol Calcium IV 07/06/18 10:08 AD PRN Pt on Electrolyte Protocol Protocol Cefazolin Sodium/Dextrose Confirm 01/13/18 07:49 Ancef 1 Gm (Premix) Administered 01/13/18 07:50 Dose 1 gm IV .STK-MED ONE Chlordiazepoxide HCl 10 mg 01/04/18 10:10 Librium PO 07/03/18 10:09 TID PRN Anxiety, Able to Take PO Chlordiazepoxide HCl 10 mg 01/06/18 12:00 Librium TUBE 07/03/18 10:09 TID PRN Anxiety, Able to Take PO Chlorhexidine Gluconate 15 ml 01/03/18 20:00 01/09/18 09:32 Peridex PO 07/02/18 19:59 15 ml Q12@08,20 JORGE Administration Diphtheria/Tetanus/Acell Pertussis 0.5 ml 01/03/18 08:30 01/03/18 09:19 Boostrix IM 01/03/18 08:31 0.5 ml .ONCE ONE Administration Diphtheria/Tetanus/Acell Pertussis Confirm 01/03/18 09:21 Boostrix Administered 01/03/18 09:22 Dose 0.5 ml IM .STK-MED ONE Ephedrine Sulfate 25 mg 01/13/18 09:07 Ephedrine Sulfate IM 01/13/18 10:08 ONCE PRN PACU, Nausea/Vomiting Ephedrine Sulfate 10 mg 01/13/18 09:07 Ephedrine Sulfate IVP 01/13/18 10:08 Q5M PRN PACU, Hypotension Epinephrine HCl Confirm 01/03/18 08:04 01/03/18 11:21 Epinephrine Administered 01/03/18 08:05 Not Given Dose 1 mg .ROUTE .STK-MED ONE Ertapenem 1 gm 01/06/18 12:15 01/13/18 21:19 Invanz IV 02/05/18 12:14 Not Given DAILY [facility] Protocol Ertapenem 1 gm 01/16/18 12:15 01/16/18 15:59 Invanz IV 01/16/18 12:16 1 gm ONCALL ONE Administration Ertapenem Confirm 01/16/18 15:48 Invanz Administered 01/16/18 15:49 Dose 1 gm .ROUTE .STK-MED ONE Etomidate Confirm 01/03/18 16:31 Etomidate Administered 01/03/18 16:32 Dose 40 mg .ROUTE .STK-MED ONE Famotidine 20 mg 01/08/18 21:00 01/09/18 09:00 Pepcid TUBE 07/07/18 20:59 Not Given BID [facility] Fentanyl Confirm 01/13/18 08:23 Sublimaze Administered 01/13/18 08:24 Dose 100 mcg .ROUTE .STK-MED ONE Fentanyl Confirm 01/16/18 13:05 Sublimaze Administered 01/16/18 13:06 Dose 100 mcg .ROUTE .STK-MED ONE Fentanyl Confirm 01/16/18 15:32 Sublimaze Administered 01/16/18 15:33 Dose 100 mcg .ROUTE .STK-MED ONE Fentanyl Confirm 01/16/18 16:11 Sublimaze Administered 01/16/18 16:12 Dose 100 mcg .ROUTE .STK-MED ONE Fentanyl 25 - 100 mcg 01/16/18 17:09 Sublimaze IVP 01/16/18 18:09 Q5M PRN PACU, IMMEDIATE Pain control Fibrinogen/Thrombin Confirm 01/03/18 08:03 01/03/18 11:24 Surgiflo Matrix Kit With Thrombin Administered 01/03/18 08:04 Not Given Dose 8 ml TP .STK-MED ONE Furosemide 20 mg 01/07/18 10:09 01/07/18 10:32 Lasix Injection IVP 01/07/18 10:10 20 mg ONCE ONE Administration Furosemide 20 mg 01/08/18 10:10 01/08/18 15:06 Lasix Injection IVP 01/08/18 10:11 20 mg ONCE ONE Administration Furosemide 20 mg 01/09/18 10:10 01/09/18 11:23 Lasix Injection IVP 01/09/18 10:11 20 mg ONCE ONE Administration Gentamicin Sulfate Confirm 01/03/18 08:04 01/03/18 13:48 Garamycin Administered 01/03/18 08:05 Not Given Dose 240 mg .ROUTE .STK-MED ONE Heparin Sodium (Porcine) Confirm 01/16/18 16:15 01/16/18 16:10 Heparin Sodium Administered 01/16/18 16:16 2,000 unit Dose Administration 2,000 unit .ROUTE .STK-MED ONE Heparin Sodium (Porcine) Confirm 01/16/18 17:30 01/16/18 18:16 Heparin Sodium Administered 01/16/18 17:31 Not Given Dose 1,000 unit .ROUTE .STK-MED ONE Levetiracetam 100 mls @ 400 mls/hr 01/03/18 08:30 01/03/18 11:51 Keppra (Premix) IV 01/03/18 08:44 100 mls EDNOW ONE Administration Cefazolin Sodium 1 gm/ 100 mls @ 200 mls/hr 01/03/18 08:31 01/03/18 12:05 Dextrose IV 01/03/18 09:00 Not Given EDNOW ONE Protocol Famotidine/Sodium Chloride 50 mls @ 200 mls/hr 01/03/18 09:00 01/08/18 09:29 Pepcid 20 Mg (Premix) IV 07/02/18 08:59 50 mls Q12HRS JORGE Administration Fentanyl/Sodium Chloride 100 mls @ 0 mls/hr 01/03/18 09:02 Fentanyl 10 Mcg/Ml (Premix) IV 01/13/18 09:01 CONT JORGE Protocol As Directed Propofol 100 mls @ 0 mls/hr 01/03/18 09:30 05/02/18 02:25 Diprivan 10 Mg/Ml (Premix) IV 07/02/18 09:29 100 mls CONT JORGE Administration Protocol Titrate Levetiracetam 750 mg/ Sodium 50 mls @ 200 mls/hr 01/03/18 21:00 01/08/18 09: 29 Chloride IV 07/02/18 20:59 50 mls BID JORGE Administration Sodium Chloride 1,000 mls @ 0 mls/hr 01/03/18 10:28 01/03/18 11:22 Ns IV 01/03/18 10:29 1,000 mls ONCE ONE Administration Wide Open Fentanyl 1,000 mcg/ Sodium 100 mls @ 0 mls/hr 01/03/18 10:50 01/03/18 11:15 Chloride IV 01/13/18 10:49 100 mls CONT JORGE Administration Protocol Per Protocol Cefazolin Sodium 1 gm/ 100 mls @ 200 mls/hr 01/03/18 11:45 01/03/18 12:37 Dextrose IV 01/03/18 12:14 Not Given EDNOW ONE Protocol Cefazolin Sodium 2 gm in 20 mls @ 200 mls/hr 01/03/18 11:45 01/03/18 12:36 Cefazolin Syringe IVP 01/03/18 11:50 20 mls ONCE ONE Administration Sodium Chloride 1,000 mls @ 50 mls/hr 01/03/18 17:00 01/08/18 09:41 Ns IV 07/02/18 16:59 1,000 mls CONT JORGE Administration Thiamine HCl 100 mg/ Sodium 101 mls @ 202 mls/hr 01/04/18 10:15 01/08/18 09: 14 Chloride IV 07/03/18 10:14 101 mls DAILY JORGE Administration Fentanyl/Sodium Chloride 100 mls @ 0 mls/hr 01/04/18 15:41 01/09/18 02:26 Fentanyl 10 Mcg/Ml (Premix) IV 01/14/18 15:40 100 mls CONT JORGE Administration Protocol Per Protocol Potassium Chloride/Sodium Chloride 1,000 mls @ 25 mls/hr 01/08/18 10:15 Ns W/ 20 Kcl/L IV 07/07/18 10:14 CONT JORGE Potassium Chloride 20 meq/ 1,000 mls @ 25 mls/hr 01/08/18 21:30 Sodium Chloride IV 07/07/18 10:14 CONT JORGE Levetiracetam 750 mg/ Sodium 50 mls @ 200 mls/hr 01/09/18 09:45 01/09/18 09: 38 Chloride IV 01/09/18 09:59 50 mls ONCE ONE Administration Potassium Chloride 50 mls @ 25 mls/hr 01/09/18 09:34 01/09/18 09:51 Potassium Cl 20 Meq (Premix) IV 01/09/18 11:33 50 mls ONCE ONE Administration Famotidine/Sodium Chloride 50 mls @ 200 mls/hr 01/09/18 21:00 01/13/18 22:04 Pepcid 20 Mg (Premix) IV 07/08/18 20:59 50 mls Q12 JORGE Administration Levetiracetam 750 mg/ Sodium 50 mls @ 200 mls/hr 01/09/18 21:00 01/14/18 09: 25 Chloride IV 07/08/18 20:59 50 mls Q12HRS JORGE Administration Potassium Chloride 50 mls @ 25 mls/hr 01/09/18 19:41 01/09/18 20:18 Potassium Cl 20 Meq (Premix) IV 01/09/18 21:40 50 mls ONCE ONE Administration Dexmedetomidine/Sodium Chloride 100 mls @ 0 mls/hr 01/09/18 23:30 Precedex 4 Mcg/Ml 100 Ml (Premix) IV 07/08/18 23:29 CONT JORGE Protocol Titrate Potassium Chloride 50 mls @ 50 mls/hr 01/10/18 05:30 01/10/18 08:10 Potassium Cl 10 Meq (Premix) IV 01/10/18 08:29 50 mls Q1H JORGE Administration Potassium Chloride/Dextrose/Sod Cl 1,000 mls @ 0 mls/hr 01/10/18 10:00 17:01 D5w 1/2 Ns W/ 20 Kcl/L IV 07/09/18 09:59 1,000 mls CONT JORGE Administration As Directed Potassium Chloride 50 mls @ 25 mls/hr 01/10/18 18:47 01/10/18 19:37 Potassium Cl 20 Meq (Premix) IV 01/10/18 20:46 50 mls ONCE ONE Administration Potassium Chloride 50 mls @ 25 mls/hr 01/11/18 04:40 01/11/18 04:57 Potassium Cl 20 Meq (Premix) IV 01/11/18 06:39 50 mls ONCE ONE Administration Potassium Chloride 50 mls @ 25 mls/hr 01/11/18 19:30 01/11/18 20:32 Potassium Cl 20 Meq (Premix) IV 01/11/18 21:29 50 mls ONCE ONE Administration Metronidazole/Sodium Chloride 100 mls @ 100 mls/hr 01/12/18 14:00 01/14/18 06 :21 Flagyl 500 Mg (Premix) IV 02/11/18 13:59 100 mls Q8HRS JORGE Administration Protocol Cefazolin Sodium/Dextrose 50 mls @ 200 mls/hr 01/13/18 08:00 01/13/18 12:28 Ancef 1 Gm (Premix) IV 01/13/18 08:14 Not Given ONCALL ONE Protocol Potassium Chloride 50 mls @ 25 mls/hr 01/13/18 06:26 01/13/18 06:39 Potassium Cl 20 Meq (Premix) IV 01/13/18 08:25 50 mls ONCE ONE Administration Lactated Ringer's 500 mls @ 0 mls/hr 01/13/18 09:07 Lr IV 01/13/18 10:07 PRN PRN PACU, Nausea/Vomiting Post-Op Wide Open Potassium Chloride 50 mls @ 25 mls/hr 01/13/18 22:23 01/14/18 00:18 Potassium Cl 20 Meq (Premix) IV 01/14/18 00:22 50 mls ONCE ONE Administration Potassium Chloride 50 mls @ 25 mls/hr 01/15/18 02:40 01/15/18 02:54 Potassium Cl 20 Meq (Premix) IV 01/15/18 04:39 50 mls ONCE ONE Administration Potassium Chloride 50 mls @ 25 mls/hr 01/15/18 19:48 01/15/18 20:15 Potassium Cl 20 Meq (Premix) IV 01/15/18 21:47 50 mls ONCE ONE Administration Lactulose 20 gm 01/08/18 10:09 Cephulac PO 07/07/18 10:08 TID PRN Constipation Protocol Levetiracetam 750 mg 01/08/18 21:00 01/09/18 11:21 Keppra Oral Liquid TUBE 07/07/18 20:59 Not Given BID JORGE Lidocaine 2 catherine 01/06/18 14:38 01/06/18 15:17 Lidocaine 2% Jelly TP 01/06/18 14:39 2 catherine ONCALL ONE Administration Lidocaine 2 catherine 01/09/18 09:30 01/09/18 10:55 Lidocaine 2% Jelly TP 01/09/18 09:31 2 catherine ONCALL ONE Administration Lidocaine HCl Confirm 01/03/18 11:06 Lidocaine Hcl 1% Administered 01/03/18 11:07 Dose 300 mg .ROUTE .STK-MED ONE Lidocaine HCl 1 - 300 mg 01/06/18 14:38 01/06/18 15:17 Lidocaine Hcl 1% MISC 01/06/18 14:39 300 mg ONCALL ONE Administration Lidocaine HCl 1 - 300 mg 01/09/18 09:30 01/09/18 10:54 Lidocaine Hcl 1% MISC 01/09/18 09:31 300 mg ONCALL ONE Administration Lidocaine HCl Confirm 01/16/18 12:27 Lidocaine Hcl 1% Administered 01/16/18 12:28 Dose 300 mg .ROUTE .STK-MED ONE Magnesium Hydroxide 30 ml 01/08/18 10:09 Milk Of Magnesia PO 07/07/18 10:08 DAILY PRN Constipation Protocol Magnesium Sulfate 1 dose 01/07/18 10:09 Protocol Magnesium IV 07/06/18 10:08 AD PRN Pt on Electrolyte Protocol Protocol Mannitol Confirm 01/03/18 08:04 01/03/18 11:22 Mannitol 20% (Premix) Administered 01/03/18 08:05 Not Given Dose 100 gm IV .STK-MED ONE Microfibrillar Collagen Hemostat Confirm 01/03/18 08:03 01/03/18 11:22 Avitene Powder Administered 01/03/18 08:04 Not Given Dose 1 gm TP .STK-MED ONE Midazolam HCl Confirm 01/11/18 15:05 Versed Administered 01/11/18 15:06 Dose 4 mg .ROUTE .STK-MED ONE Midazolam HCl 4 mg 01/11/18 15:17 01/11/18 15:20 Versed IVP 01/11/18 15:18 4 mg ONCE ONE Administration Miscellaneous Medication 1 ea 01/03/18 10:50 Narcotic Drip-Total All Types IV 07/02/18 10:49 PRN PRN Pyxis removal Naloxone HCl 0.1 mg 01/13/18 09:07 Narcan IVP 01/13/18 10:07 Q2M PRN PACU Resp Rate <10/min Naloxone HCl 0.1 mg 01/16/18 17:09 Narcan IVP 01/16/18 18:09 Q2M PRN PACU Resp Rate <10/min Octyl Cyanoacrylate Confirm 01/03/18 10:04 Dermabond Administered 01/03/18 10:05 Dose 2 each TP .STK-MED ONE Ondansetron HCl 2 - 4 mg 01/16/18 17:09 Zofran IVP 01/16/18 18:09 Q10M PRN PACU, Nausea/Vomiting Phenylephrine HCl 100 mcg 01/13/18 09:07 Neosynephrine IVP 01/13/18 10:08 Q2M PRN PACU, Hypotension Polyethylene Glycol 17 gm 01/08/18 10:09 Miralax PO 07/07/18 10:08 DAILY PRN Constipation, patient prefers Protocol Potassium Chloride 10 - 40 meq 01/07/18 12:08 01/07/18 12:35 Klor-Con TUBE 01/07/18 12:09 10 meq ONCE ONE Administration Protocol Potassium Chloride 20 meq 01/07/18 19:30 01/07/18 20:02 Potassium Chloride Oral Liquid TUBE 01/07/18 19:31 20 meq ONCE ONE Administration Protocol Potassium Chloride 30 meq 01/08/18 06:30 01/08/18 06:31 Potassium Chloride Oral Liquid TUBE 01/08/18 06:31 30 meq ONCE ONE Administration Protocol Potassium Chloride 10 meq 01/14/18 06:15 01/14/18 06:30 Potassium Chloride Oral Liquid TUBE 01/14/18 06:16 10 meq ONCE ONE Administration Protocol Potassium Phosphate 1 dose 01/07/18 10:09 Protocol K Phosphate IV 07/06/18 10:08 AD PRN Pt on Electrolyte Protocol Protocol Propofol Confirm 01/13/18 08:23 Diprivan Administered 01/13/18 08:24 Dose 200 mg .ROUTE .STK-MED ONE Propofol Confirm 01/13/18 08:23 Diprivan 10 Mg/Ml (Premix) Administered 01/13/18 08:24 Dose 500 mg IV .STK-MED ONE Propofol Confirm 01/16/18 13:05 Diprivan Administered 01/16/18 13:06 Dose 200 mg .ROUTE .STK-MED ONE Propofol Confirm 01/16/18 14:42 Diprivan 10 Mg/Ml (Premix) Administered 01/16/18 14:43 Dose 500 mg IV .STK-MED ONE Propofol Confirm 01/16/18 16:11 Diprivan 10 Mg/Ml (Premix) Administered 01/16/18 16:12 Dose 500 mg IV .STK-MED ONE Senna/Docusate Sodium 1 - 2 tab 01/08/18 21:00 01/14/18 07:27 Senokot-S PO 07/07/18 20:59 Not Given BID JORGE Protocol Succinylcholine Chloride Confirm 01/03/18 16:31 Quelicin Administered 01/03/18 16:32 Dose 200 mg IVP .STK-MED ONE Thrombin Confirm 01/03/18 08:03 01/03/18 11:24 Thrombin-Jmi Administered 01/03/18 08:04 Not Given Dose 5,000 unit TP .STK-MED ONE Vec[employer] [place] Confirm 01/03/18 08:07 [place] [place] Administered 01/03/18 08:08 Dose 10 mg .ROUTE .STK-MED ONE Vec[employer] [place] 10 mg 01/03/18 11:00 01/03/18 11:02 Vecuronium [place] IV 01/03/18 11:01 Not Given ONCE ONE Physical Exam - Physical Exam General Appearance: obtunded, unresponsive Respiratory: lungs clear Abdomen: non-tender, soft, other (red thich discharge at Gtube site, with appearance of pus. No induration or reddness at G tube site. ) Skin: normal color, warm/dry ICD10 Worksheet Patient Problems: Problems Problem Status Onset Ankle fracture, right Acute Facial bones, closed fracture Acute Respiratory failure requiring intubation Acute Scalp laceration Acute Skull fracture with cerebral contusion Acute Abdominal pain Acute Alcohol dependence Acute Alcohol use Acute Alcoholic intoxication Acute Ankle fracture Acute Contusion of left knee Acute Dyspepsia Acute Epigastric pain Acute Pneumonia Acute Severe major depression Acute Tachycardia Acute
--- NOTE | 2018-01-17 17:01 | ASMTCMCOM ---
CM Note CM Note Notes: Pt PASRR approved, placed in chart and Allscripts. Referrals sent to [facility], [facility] and [facility] SNFs. Attempted to reach pt family; mother Samantha is traveling back to [place] today (left a message) and voicemail left for pt brother Jacinta. CM to follow. Date Signed: 01/17/2018 05:00 PM Electronically Signed By:CASSIDY Amezquita
[2018-01-18] MEDS: LORazepam 2 MG/ML INJ IVP PRN ×2 (00:40→14:19)
[2018-01-18] MEDS: VANCOMYCIN 125 MG/2.5 ML UDL TUBE SCH ×4 (05:20→23:31)
[2018-01-18] MEDS: IPRATROPIUM/ALBUTEROL 3 ML DEYVIAL IH SCH ×4 (05:56→22:00)
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
[2018-01-18] MEDS: THIAMINE HCL 100 MG TAB TUBE SCH (09:40)
[2018-01-18] MEDS: ENOXAPARIN 40 MG/0.4 ML SYR SC SCH (09:40)
[2018-01-18] MEDS: levETIRAcetam 500 MG/5 ML UDCUP TUBE SCH ×2 (09:40→23:27)
[2018-01-18] MEDS: FAMOTIDINE 20 MG TAB TUBE SCH ×2 (09:40→23:27)
[2018-01-18] MEDS: ACETAMINOPHEN 650 MG/20.3 ML UDCUP TUBE PRN ×2 (09:41→23:27)
--- NOTE | 2018-01-18 10:44 | ASMTCMCOM ---
CM Note CM Note Notes: There is no accepting SNF to date. Following are SNF referrals and reason for declining pt: [facility]: Unable to accept do to homelessness and ETOH [facility]: Unable to accept do to homelessness and ETOH [facility]: Thank you for the referral, we are unable to accept due to ETOH [facility]: Thank you for the referral. We are not a [facility] or Medicaid contracted facility [facility]: We do not accept UHC and do not have a Medicaid bed available. Thank you Date Signed: 01/18/2018 10:44 AM Electronically Signed By:CASSIDY Amezquita
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
--- NOTE | 2018-01-18 15:37 | ASMTCMCOM ---
CM Note CM Note Notes: Updated pt mother Samantha *[phone] or [phone]; she will call insurance to see if she can appeal LTAC denial. Samantha reports pt d/c plan from SNF is to [place] live with her if pt is stable and ambulatory. [facility] is an accepting LTAC ready to take pt when/if insurance authorizes. A case management note documenting the five SNF denials so far and reasons why was faxed to [facility] ([phone]), they are going to pursue a re-authorization including the SNF denials. SNF referrals sent to [facility] and [facility], referrals pending from [facility] and [facility]. Kandace with [facility] ran pt SNF benefit: days 1-20 $0, days 21-48 $160.00 and days 49-100 $0. Pt OOP $4400 has met $2170. Date Signed: 01/18/2018 03:36 PM Electronically Signed By:CASSIDY Amezquita
[2018-01-19] MEDS: LORazepam 2 MG/ML INJ IVP PRN ×3 (00:10→19:56)
[2018-01-19] MEDS: IPRATROPIUM/ALBUTEROL 3 ML DEYVIAL IH SCH ×2 (03:27→12:54)
[2018-01-19] MEDS: VANCOMYCIN 125 MG/2.5 ML UDL TUBE SCH ×3 (06:29→15:22)
[2018-01-19] MEDS: THIAMINE HCL 100 MG TAB TUBE SCH (08:27)
[2018-01-19] MEDS: levETIRAcetam 500 MG/5 ML UDCUP TUBE SCH (08:27)
[2018-01-19] MEDS: ENOXAPARIN 40 MG/0.4 ML SYR SC SCH (08:27)
[2018-01-19] MEDS: FAMOTIDINE 20 MG TAB TUBE SCH (08:27)
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
[2018-01-19] MEDS ORDERED: IPRATROPIUM/ALBUTEROL 3 ML DEYVIAL IH PRN (13:06)
[2018-01-20] MEDS: D5W 1/2 NS 1,000 ML IV SCH ×3 (00:10→16:38)
[2018-01-20] MEDS: FAMOTIDINE 20 MG TAB TUBE SCH ×3 (00:27→20:57)
[2018-01-20] MEDS: levETIRAcetam 500 MG/5 ML UDCUP TUBE SCH ×3 (00:27→20:57)
[2018-01-20] MEDS: ACETAMINOPHEN 650 MG/20.3 ML UDCUP TUBE PRN ×2 (00:27→10:15)
[2018-01-20] MEDS: VANCOMYCIN 125 MG/2.5 ML UDL TUBE SCH ×5 (00:30→20:57)
[2018-01-20] MEDS: LORazepam 2 MG/ML INJ IVP PRN ×2 (02:18→19:36)
--- NOTE | 2018-01-20 08:50 | SOAPPROG ---
SOAP Progress Note Assessment/Plan: Assessment: Plan: 01/05/18 10:27 chi with altered mental sttus- currently dsedated and ventilated, facial fractures, skull fx will check a cxr asnow febrile.,. may need to stay intubated as secretions are increasing. if not waking g up in 1-2 days, suggest ng feedings Subjective: much more spontaneous movement the 3 dayys ago, mumbling but not comprehendable lungs clear abd soft does not follow simple commands tolerating goal rate of tf access: mental status improving, but poor. Objective: Vital Signs Temp Pulse Resp BP Pulse Ox 37.6 C 96 18 132/81 H 94 01/20/18 00:00 01/20/18 00:00 01/20/18 00:00 01/20/18 00:00 01/20/18 00:00 Laboratory Results 01/13/18 05:50 01/16/18 23:10 01/19/18 01/20/18 01/21/18 05:59 05:59 05:59 Intake Total 1390 980 Output Total 2600 1250 Balance -1210 -270 PT 13.7 SEC (12.0-15.0) 01/03/18 07:50 INR 1.03 (0.83-1.16) 01/03/18 07:50 ICD10 Worksheet Patient Problems: Problems Problem Status Onset Ankle fracture, right Acute Facial bones, closed fracture Acute Respiratory failure requiring intubation Acute Scalp laceration Acute Skull fracture with cerebral contusion Acute Abdominal pain Acute Alcohol dependence Acute Alcohol use Acute Alcoholic intoxication Acute Ankle fracture Acute Contusion of left knee Acute Dyspepsia Acute Epigastric pain Acute Pneumonia Acute Severe major depression Acute Tachycardia Acute
[2018-01-20] MEDS: ENOXAPARIN 40 MG/0.4 ML SYR SC SCH (10:15)
[2018-01-20] MEDS: THIAMINE HCL 100 MG TAB TUBE SCH (10:17)
[2018-01-21] MEDS: D5W 1/2 NS 1,000 ML IV SCH ×2 (03:18→17:16)
[2018-01-21] MEDS: VANCOMYCIN 125 MG/2.5 ML UDL TUBE SCH ×4 (05:38→23:40)
[2018-01-21] MEDS: ENOXAPARIN 40 MG/0.4 ML SYR SC SCH (08:38)
[2018-01-21] MEDS: THIAMINE HCL 100 MG TAB TUBE SCH (08:41)
[2018-01-21] MEDS: FAMOTIDINE 20 MG TAB TUBE SCH ×2 (08:41→20:45)
[2018-01-21] MEDS: levETIRAcetam 500 MG/5 ML UDCUP TUBE SCH ×2 (08:45→20:45)
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
[2018-01-21] MEDS: LORazepam 2 MG/ML INJ IVP PRN ×2 (13:22→17:21)
--- NOTE | 2018-01-21 15:10 | WOCRNPDOC ---
WOCRN Advanced Assessment Note - Skin Integrity Problem, Advanced Assess Groin Incont Assoc Dermatitis Exudate Amount: Scant Exudate Color: Reddish/Yellow Exudate Characteristic(s): Serosanguinous Integumentary Issue Intervention: Barrier Cream Applied Vivian Wound Tissue: Erythema, Raw, Denuded, Painful/Tender Site Measurement - Head-to-Toe Length X Width X Depth (cm): multiple openings smaller than 0.2x0.2x0.1 Skin Integrity Problem Comment: Multiple small open areas to groin, scrotum, and perianal areas related to frequent stool incontinence. Patient at high risk for pressure injury due to fecal incontinence and immobility. Please clean only with periwipes and apply calazime as directed. Wound care will not follow this wound. Please reconsult if area continues to breakdown. Coccyx Pressure Injury Site Measurement - Head-to-Toe Length X Width X Depth (cm): 5x0.5x0 Pressure Injury Stage: Stage 1 Pressure Injury Present on Admit: No Skin Integrity Problem Comment: MAGED Acosta alerted. Reconsult if wound gets worse. Wound care will not follow this wound.
--- NOTE | 2018-01-21 16:43 | ASMTCMCOM ---
MICAH Note MICAH Note Notes: [facility]. We are still dealing with the appeals process with [employer]. Cristiana from our UR department sent updated clinicals to [place], and [facility] will continue to send documents, as well. In the meantime, we have not had a single SNF show interested in patient d/t his agitation, use of restraints, and/or history. I spoke with the patient's mother who asked that we write a letter to [employer] stating that patient's medical condition has made him unable to handle his finances. She hopes that if she can become his financial POA she will be able to change his Medicare plan to one that will cover the appropriate level of care. She is proxy. I escalated this request the the [employer] of Nica OBRIEN and Director, Salome. This continues to be a difficult placement d/t the above. Case Management will follow. Date Signed: 01/21/2018 04:42 PM Electronically Signed By:Michelle Bonilla RN
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
[2018-01-22] MEDS: VANCOMYCIN 125 MG/2.5 ML UDL TUBE SCH ×3 (05:27→18:45)
[2018-01-22] MEDS: ENOXAPARIN 40 MG/0.4 ML SYR SC SCH (08:14)
[2018-01-22] MEDS: levETIRAcetam 500 MG/5 ML UDCUP TUBE SCH ×2 (08:14→20:55)
[2018-01-22] MEDS: THIAMINE HCL 100 MG TAB TUBE SCH (08:15)
[2018-01-22] MEDS: LORazepam 2 MG/ML INJ IVP PRN (08:15)
[2018-01-22] MEDS: FAMOTIDINE 20 MG TAB TUBE SCH ×2 (08:15→20:58)
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
--- NOTE | 2018-01-22 17:16 | ASMTCMCOM ---
CM Note CM Note Notes: Assisting on this case today. I have spoken with MICAH, Nicki, at [facility] #[phone]. Nicki states the best option at this point is to have patient's mother call and 'appeal' the LTAC denial. Spoke with patient's mother, encouraged her to complete the independent appeal with [facility]. Mother states she will call on Sunday morning and follow-up with CM. Spoke with Claudette at [facility], they are still willing to accept if [facility] will authorize LTAC. Also spoke with Kandace at [facility], they will consider accepting patient once his agitation has lessened and does not have restraints/roll belt. Two additional referrals sent today to [facility] and [facility] in [place]. Spoke with Iza at [facility], no available beds in their SNF. CM will continue to follow this case. Date Signed: 01/22/2018 04:57 PM Electronically Signed By:Nica Alford RN
[2018-01-22] MEDS: D5W 1/2 NS 1,000 ML IV SCH (20:45)
[2018-01-23] MEDS: VANCOMYCIN 125 MG/2.5 ML UDL TUBE SCH ×4 (01:40→18:15)
[2018-01-23] MEDS: FAMOTIDINE 20 MG TAB TUBE SCH ×2 (09:54→20:56)
[2018-01-23] MEDS: THIAMINE HCL 100 MG TAB TUBE SCH (09:54)
[2018-01-23] MEDS: ENOXAPARIN 40 MG/0.4 ML SYR SC SCH (09:55)
[2018-01-23] MEDS: levETIRAcetam 500 MG/5 ML UDCUP TUBE SCH ×2 (09:55→20:57)
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
--- NOTE | 2018-01-23 14:47 | ASMTCMCOM ---
CM Note CM Note Notes: Called patient's mother Samantha to get an update. She said she spoke with someone from [facility] today. They requested a copy of patient's proxy paperwork, which she faxed to them. She was also informed the PCP that was listed on patient's record was an MD in [place] whom he had not seen in 3 years. Apparently, this doctor's office was refusing to sign off on/refer patient to LTAC until they saw him in their office. Patient's mother explained that he had been hospitalized for 22 days and would not be seen in their office. Per patient's mother, the insurance company was going to find him a PCP in [place]. I hope that her appeal continues to move the case forward, although I am not confident that having an invalid PCP was the reason for his continued denial for LTAC. Samantha will keep us informed and we will do the same for her. Date Signed: 01/23/2018 02:46 PM Electronically Signed By:Michelle Bonilla RN
--- NOTE | 2018-01-23 15:47 | ASMTCMCOM ---
CM Note CM Note Notes: There is still no SNF placement. Malena with [facility] completed on-site today. [facility] will continue to follow and can consider pt if pt improves. Pt current restraints would not be permitted at any SNF. There are some facilities who report they can consider pt if his agitation improves. CM to follow. Date Signed: 01/23/2018 03:46 PM Electronically Signed By:CASSIDY Amezquita
[2018-01-23] MEDS: ACETAMINOPHEN 650 MG/20.3 ML UDCUP TUBE PRN (21:00)
[2018-01-23] MEDS: LORazepam 2 MG/ML INJ IVP PRN (22:49)
[2018-01-24] MEDS: VANCOMYCIN 125 MG/2.5 ML UDL TUBE SCH ×4 (00:51→18:17)
[2018-01-24] MEDS: ENOXAPARIN 40 MG/0.4 ML SYR SC SCH (08:24)
[2018-01-24] MEDS: levETIRAcetam 500 MG/5 ML UDCUP TUBE SCH ×2 (08:25→22:20)
[2018-01-24] MEDS: FAMOTIDINE 20 MG TAB TUBE SCH ×2 (08:25→22:20)
[2018-01-24] MEDS: THIAMINE HCL 100 MG TAB TUBE SCH (08:25)
[2018-01-24] MEDS: ACETAMINOPHEN 650 MG/20.3 ML UDCUP TUBE PRN ×2 (08:25→14:40)
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
[2018-01-25] MEDS: VANCOMYCIN 125 MG/2.5 ML UDL TUBE SCH ×5 (00:06→23:13)
[2018-01-25] MEDS: THIAMINE HCL 100 MG TAB TUBE SCH (07:18)
[2018-01-25] MEDS: FAMOTIDINE 20 MG TAB TUBE SCH ×2 (07:18→23:12)
[2018-01-25] MEDS: ACETAMINOPHEN 650 MG/20.3 ML UDCUP TUBE PRN ×3 (07:18→23:12)
[2018-01-25] MEDS: ENOXAPARIN 40 MG/0.4 ML SYR SC SCH (07:19)
[2018-01-25] MEDS: levETIRAcetam 500 MG/5 ML UDCUP TUBE SCH ×2 (07:19→23:12)
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
--- NOTE | 2018-01-25 11:04 | ASMTCMCOM ---
CM Note CM Note Notes: Telephone call with pt mother/proxy Samantha ([phone]) this morning. Samantha reports there is no update on the [facility] appeal for LTAC, this appeal could be "pending for a while." Samantha faxed [facility] the proxy paperwork and now this information needs to be input into the computer. Samantha expects to receive a call from [facility] when this has been done and then she can appeal. Samantha is sincere in her efforts and reports she is checking in with [facility] daily. Samantha states she trusts the [facility] staff she has been working with. Claudette Baird with [facility] called to see status of LTAC appeal. They can still accept pt if LTAC is approved by insurance. For now Claudette has to take pt off her list but [facility] can call her to follow pt again. Pt still minimally responsive, tolerating tube feedings, trauma note indicates WRAPPER CASHIER has advanced pt to dysphagia appropriate diet which pt is tolerating, pt still requiring restraints. Nursing note from 01/24/18 indicates pt Pt asked a couple of questions early that morning. Still no SNF placmente due to restraints and agitation CM to follow. Date Signed: 01/25/2018 11:03 AM Electronically Signed By:CASSIDY Amezquita
--- NOTE | 2018-01-25 17:08 | ASMTCMCOM ---
CM Note CM Note Notes: Referral sent in [employer] to [facility] today as this facility accommodates brain injuries, mental illness and appears to have comprehensive wrap around services for issues pt is dealing with. CM to follow. Date Signed: 01/25/2018 05:07 PM Electronically Signed By:CASSIDY Amezquita
[2018-01-25] MEDS: LORazepam 1 MG TAB TUBE PRN ×2 (19:22→23:11)
[2018-01-26] MEDS: VANCOMYCIN 125 MG/2.5 ML UDL TUBE SCH ×3 (05:24→17:31)
[2018-01-26] MEDS: LORazepam 1 MG TAB TUBE PRN ×2 (05:25→20:34)
[2018-01-26] MEDS: THIAMINE HCL 100 MG TAB TUBE SCH (08:17)
[2018-01-26] MEDS: ENOXAPARIN 40 MG/0.4 ML SYR SC SCH (08:17)
[2018-01-26] MEDS: FAMOTIDINE 20 MG TAB TUBE SCH ×2 (08:17→20:34)
[2018-01-26] MEDS: levETIRAcetam 500 MG/5 ML UDCUP TUBE SCH ×2 (08:17→20:34)
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
[2018-01-27] MEDS: VANCOMYCIN 125 MG/2.5 ML UDL TUBE SCH ×5 (00:07→23:53)
[2018-01-27] MEDS: FAMOTIDINE 20 MG TAB TUBE SCH ×2 (10:47→19:49)
[2018-01-27] MEDS: levETIRAcetam 500 MG/5 ML UDCUP TUBE SCH ×2 (10:47→19:55)
[2018-01-27] MEDS: ENOXAPARIN 40 MG/0.4 ML SYR SC SCH (10:47)
[2018-01-27] MEDS: THIAMINE HCL 100 MG TAB TUBE SCH (10:47)
--- NOTE | 2018-01-27 12:11 | WOCRNPDOC ---
WOCRN Advanced Assessment Note - Skin Integrity Problem, Advanced Assess Groin Incont Assoc Dermatitis Dressing Type: Open to Air Integumentary Issue Intervention: Barrier Cream Applied Tobias Wound Tissue: Denuded Wound Bed Color: [place] Skin Integrity Problem Comment: Patient rolled to his left side with assist from RN Radha. Small areas of denuded skin related to incontinence in tobias-anal area. Patient continues to be incontinent of both bladder and bowel. Reviewed with RN options for diverting moisture - not sure he is a good candidate for any of these interventions because of his tendancy to pull at his various lines. Recommend calazime cream BID and with episodes of incontinence for now. Wound care will not continue to follow. Please reconsult if worsens.
[2018-01-27] MEDS: LORazepam 1 MG TAB TUBE PRN ×3 (13:19→22:18)
[2018-01-27] MEDS: ACETAMINOPHEN 650 MG/20.3 ML UDCUP TUBE PRN (19:44)
[2018-01-27] MEDS ORDERED: LOPERAMIDE HCL 1 MG/5 ML UDL TUBE PRN (19:48)
[2018-01-27] MEDS ORDERED: LOPERAMIDE HCL 1 MG/5 ML UDL TUBE ONE (20:00)
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
[2018-01-28] MEDS: ACETAMINOPHEN 650 MG/20.3 ML UDCUP TUBE PRN ×2 (02:15→21:26)
[2018-01-28] MEDS: LORazepam 1 MG TAB TUBE PRN ×3 (02:49→21:27)
[2018-01-28] MEDS: VANCOMYCIN 125 MG/2.5 ML UDL TUBE SCH ×3 (05:53→18:18)
[2018-01-28] MEDS: ENOXAPARIN 40 MG/0.4 ML SYR SC SCH (09:39)
[2018-01-28] MEDS: FAMOTIDINE 20 MG TAB TUBE SCH ×2 (09:40→21:27)
[2018-01-28] MEDS: levETIRAcetam 500 MG/5 ML UDCUP TUBE SCH ×2 (09:40→21:27)
[2018-01-28] MEDS: THIAMINE HCL 100 MG TAB TUBE SCH (09:40)
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
--- NOTE | 2018-01-28 15:47 | ASMTCMCOM ---
CM Note CM Note Notes: I have spoken MICAH Caceres, at [facility] again today. I have explained that we have officially received ten SNF denials for this patient. Patient continues to be agitated & confused, may need to transfer back to ICU. Nicki agreed to review clinical again tomorrow morning (Sunday) and ask the [facility] MD to reconsider approval for LTAC. Will communicate this to our UR nurse and will follow-up on Sunday. MICAH will continue to follow. Date Signed: 01/28/2018 03:47 PM Electronically Signed By:Nica Alford RN
--- NOTE | 2018-01-28 16:17 | ASMTCMCOM ---
CM Note CM Note Notes: Spoke with pt mother Samantha [phone], she has not heard any updates from [employer]. Samantha reports she will fax her paperwork to [employer] yet again today, she states she has faxed [employer] daily so they give this attention sooner than later. Samantha already has the Advanced Directive pt filled out in July 2017, she is using this to guide her decision making. Pt pulled peg tube out again today, he will have emergency surgery. CM to follow. Date Signed: 01/28/2018 04:17 PM Electronically Signed By:CASSIDY Amezquita
[2018-01-28] MEDS ORDERED: LIDOCAINE 2% JELLY 20 ML (UROJECT) ONE (16:46)
[2018-01-28] MEDS ORDERED: fentaNYL 100 MCG/2 ML INJ ONE (16:51)
[2018-01-28] MEDS ORDERED: MINERAL OIL 10 ML VIAL ONE (16:53)
[2018-01-28] MEDS ORDERED: IOPAMIDOL (ISOVUE-300) 100 ML BTL ONE (16:58)
[2018-01-28] MEDS ORDERED: fentaNYL 100 MCG/2 ML INJ IVP ONE (17:00)
[2018-01-29] MEDS: VANCOMYCIN 125 MG/2.5 ML UDL TUBE SCH ×4 (00:34→18:31)
[2018-01-29] MEDS: LORazepam 1 MG TAB TUBE PRN ×3 (03:32→20:22)
[2018-01-29] MEDS ORDERED: LIDOCAINE 1% 300 MG/30 ML SDV ONE (07:50)
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
[2018-01-29] MEDS: ENOXAPARIN 40 MG/0.4 ML SYR SC SCH (11:11)
[2018-01-29] MEDS: THIAMINE HCL 100 MG TAB TUBE SCH (11:11)
[2018-01-29] MEDS: FAMOTIDINE 20 MG TAB TUBE SCH ×2 (11:11→22:29)
[2018-01-29] MEDS: levETIRAcetam 500 MG/5 ML UDCUP TUBE SCH ×2 (11:12→22:29)
--- NOTE | 2018-01-29 12:09 | ASMTCMCOM ---
CM Note CM Note Notes: Voicemails left for admissions staff at [facility], two SNF referrals still pending. CM to follow. Date Signed: 01/29/2018 12:09 PM Electronically Signed By:CASSIDY Amezquita
--- NOTE | 2018-01-29 15:57 | ASMTCMCOM ---
CM Note CM Note Notes: Spoke with Nicki at [facility] again today. Dr. Burt was able to speak to Dr. Boucher at [facility] today. They will authorize acute rehab but not LTAC. I have sent referrals to both [facility] and [facility]. Spoke with Jerome at [facility] #[phone], who will consider only if patient has a 'dispo' plan from there (home with 02/04). Also spoke with Claudette at [facility], updates sent via [employer]. Claudette is concerned that [facility] will not authorize them - she asked that we speak to them first. CM will call and speak to mother and hopefully connect mother up with admissions at [facility]. If there is no dispo plan for [facility], will then have to see what [facility] is able to do. More tbd. CM will follow. Date Signed: 01/29/2018 03:57 PM Electronically Signed By:Nica Alford RN
[2018-01-30] MEDS: VANCOMYCIN 125 MG/2.5 ML UDL TUBE SCH ×4 (01:11→17:30)
[2018-01-30] MEDS: levETIRAcetam 500 MG/5 ML UDCUP TUBE SCH (09:05)
[2018-01-30] MEDS: FAMOTIDINE 20 MG TAB TUBE SCH ×2 (09:05→20:25)
[2018-01-30] MEDS: ENOXAPARIN 40 MG/0.4 ML SYR SC SCH (09:05)
[2018-01-30] MEDS: THIAMINE HCL 100 MG TAB TUBE SCH (09:05)
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
[2018-01-30] MEDS ORDERED: PROPRANOLOL HCL PO SCH (10:00)
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
[2018-01-30] MEDS: PROPRANOLOL HCL 20 MG TAB TUBE SCH ×2 (12:58→20:23)
--- NOTE | 2018-01-30 17:12 | ASMTCMCOM ---
MICAH Note MICAH Note Notes: Spoke with patient's mother today, Samantha. She has requested that in the future we call #[phone] to reach her. Mother states she is hoping to take Jeremiah back to [place] post a rehab stay. I connected Jerome at [facility] and mother over phone to discuss Kirby's admission process and expectations. After conversation, [facility] did officially decline. [facility] feels this patient is appropriate for Acute Rehab, just not their specific program. [facility] was hoping patient's mother could be present during his rehab, mother unable to do that at this time. I [facility]. Updates have been sent via [place], Claudette will re-assess and submit another auth to [employer]. Claudette will follow-up with [employer] on . Claudette did state she has some concerns about the sitter, patient's agitation and their acute rehab's ability to handle this (their LTAC would be able to). Received word from Dr. Klein and Tiffany at [facility] inpatient rehab, they are unable to accept. MICAH is still working with [facility] on other possible solutions. MICAH will continue to follow. Date Signed: 01/30/2018 05:12 PM Electronically Signed By:Nica Alford RN
[2018-01-30] MEDS ORDERED: OLANZapine 5 MG TAB PO SCH (21:00)
[2018-01-31] MEDS: VANCOMYCIN 125 MG/2.5 ML UDL TUBE SCH ×5 (00:12→22:44)
--- NOTE | 2018-01-31 09:50 | ASMTCMCOM ---
CM Note CM Note Notes: Spoke with Claudette at [facility] acute rehab, sent updates per her request and they will send for inpatient acute rehab authorization. Claudette reports they will require a letter from [facility] specifically indicating they authorize [facility] since pt has a "[facility] plan." CM to follow. Date Signed: 01/31/2018 09:49 AM Electronically Signed By:CASSIDY Amezquita
--- NOTE | 2018-01-31 10:08 | ASMTCMCOM ---
CM Note CM Note Notes: Claudette with [facility] Acute rehab will visit pt today for on-site assessment. Date Signed: 01/31/2018 10:07 AM Electronically Signed By:CASSIDY Amezquita
[2018-01-31] MEDS: THIAMINE HCL 100 MG TAB TUBE SCH (10:16)
[2018-01-31] MEDS: PROPRANOLOL HCL 20 MG TAB TUBE SCH (10:16)
[2018-01-31] MEDS: FAMOTIDINE 20 MG TAB TUBE SCH ×2 (10:16→22:16)
[2018-01-31] MEDS: ENOXAPARIN 40 MG/0.4 ML SYR SC SCH (10:16)
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
[2018-01-31] MEDS: PROPRANOLOL HCL 40 MG TAB TUBE SCH (22:16)
[2018-01-31] MEDS: OLANZapine 10 MG TAB PO SCH (22:16)
[2018-02-01] MEDS: VANCOMYCIN 125 MG/2.5 ML UDL TUBE SCH ×3 (05:14→17:14)
[2018-02-01] MEDS: LORazepam 1 MG TAB TUBE PRN ×2 (05:14→17:37)
[2018-02-01] MEDS: ENOXAPARIN 40 MG/0.4 ML SYR SC SCH (08:15)
[2018-02-01] MEDS: FAMOTIDINE 20 MG TAB TUBE SCH ×2 (08:15→21:45)
[2018-02-01] MEDS: THIAMINE HCL 100 MG TAB TUBE SCH (08:15)
[2018-02-01] MEDS: PROPRANOLOL HCL 40 MG TAB TUBE SCH ×3 (08:15→21:45)
--- NOTE | 2018-02-01 11:13 | ASMTCMCOM ---
CM Note CM Note Notes: Pt stool negative for cdiff now. Declines from acute rehabs [facility] (does not take pt insurance) and [facility] (cannot accommodate pt needs). New referral sent to [facility] acute rehab. Samantha ([phone] or [phone]) reports she has no email/fax, asks pt HCBS signature page be mailed to her [address] [place] [phone]. To Ceferino knowledge pt only income source is SSDI approximately $900/month. Pt pays child support and he may pay alimony. She has no update from [facility]. Spoke with Mel[facility], they have submitted for insurance authorization and need letter from [place] specifically stating they will cover [facility]. Even if auth is obtained today [facility] cannot take pt until next week when/if he is off 1:1. Still have not received call backs from [facility] or [facility] SNFs, voicemails left again. Cm to follow. Date Signed: 02/01/2018 11:12 AM Electronically Signed By:CASSIDY Amezquita
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
--- NOTE | 2018-02-01 16:51 | ASMTCMCOM ---
CM Note CM Note Notes: Discussed pt with CM director Salome Fam. Attempted to reach pt mother/proxy Samantha ([phone] or [phone]) this afternoon to discuss the potential for pt to do rehab in [place] close to her so she can participate in rehab and d/c planning. Did not receive a call back by close of business. No referrals sent yet, this CM does not want any [place] rehab calling Samantha before CM has a chance to discuss. There would also be logistical concerns mainly how to get pt to [place] as air transport can be quit costly. Quick Allscripts search shows numerous inpatient acute rehabs in [place] near where Samantha lives. Pt still on peg tube feeding and requiring a sitter. Pt brother Adan came to visit pt today. CM will continue to follow. Date Signed: 02/01/2018 04:51 PM Electronically Signed By:CASSIDY Amezquita
[2018-02-01] MEDS: OLANZapine 10 MG TAB PO SCH (21:45)
[2018-02-02] MEDS: VANCOMYCIN 125 MG/2.5 ML UDL TUBE SCH ×4 (00:45→17:36)
[2018-02-02] MEDS: AMANTADINE HCL 100 MG/10 ML UDCUP PO SCH ×2 (05:34→12:14)
[2018-02-02] MEDS: FAMOTIDINE 20 MG TAB TUBE SCH ×2 (11:24→20:49)
[2018-02-02] MEDS: ENOXAPARIN 40 MG/0.4 ML SYR SC SCH (11:25)
[2018-02-02] MEDS: THIAMINE HCL 100 MG TAB TUBE SCH (11:25)
[2018-02-02] MEDS: PROPRANOLOL HCL 40 MG TAB TUBE SCH ×3 (11:41→20:45)
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
[2018-02-02] MEDS: OLANZapine 10 MG TAB PO SCH (20:49)
[2018-02-03] MEDS: VANCOMYCIN 125 MG/2.5 ML UDL TUBE SCH ×5 (00:51→23:58)
[2018-02-03] MEDS: LORazepam 1 MG TAB TUBE PRN ×2 (02:45→21:58)
[2018-02-03] MEDS: AMANTADINE HCL 100 MG/10 ML UDCUP PO SCH ×2 (05:33→11:34)
[2018-02-03] MEDS: ENOXAPARIN 40 MG/0.4 ML SYR SC SCH (09:53)
[2018-02-03] MEDS: PROPRANOLOL HCL 40 MG TAB TUBE SCH ×3 (09:53→21:11)
[2018-02-03] MEDS: FAMOTIDINE 20 MG TAB TUBE SCH ×2 (09:57→21:11)
[2018-02-03] MEDS: THIAMINE HCL 100 MG TAB TUBE SCH (09:58)
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
[2018-02-03] MEDS: OLANZapine 10 MG TAB PO SCH (21:11)
[2018-02-04] MEDS: VANCOMYCIN 125 MG/2.5 ML UDL TUBE SCH ×3 (06:05→17:12)
[2018-02-04] MEDS: AMANTADINE HCL 100 MG/10 ML UDCUP PO SCH ×2 (06:05→11:35)
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
[2018-02-04] MEDS: THIAMINE HCL 100 MG TAB TUBE SCH (09:05)
[2018-02-04] MEDS: PROPRANOLOL HCL 40 MG TAB TUBE SCH ×3 (09:05→21:22)
[2018-02-04] MEDS: FAMOTIDINE 20 MG TAB TUBE SCH ×2 (09:05→21:22)
[2018-02-04] MEDS: ENOXAPARIN 40 MG/0.4 ML SYR SC SCH (09:06)
[2018-02-04] MEDS: LORazepam 1 MG TAB TUBE PRN (11:44)
--- NOTE | 2018-02-04 14:53 | ASMTCMCOM ---
CM Note CM Note Notes: Received call from [facility] requesting updated notes - sent this afternoon. Pt has tested negative for c-diff but still has a sitter. Date Signed: 02/04/2018 02:52 PM Electronically Signed By:CASSIDY Jackson
[2018-02-04] MEDS: OLANZapine 10 MG TAB PO SCH (21:25)
[2018-02-05] MEDS: VANCOMYCIN 125 MG/2.5 ML UDL TUBE SCH ×4 (00:48→17:53)
[2018-02-05] MEDS: AMANTADINE HCL 100 MG/10 ML UDCUP PO SCH ×2 (06:13→12:29)
[2018-02-05] MEDS: ENOXAPARIN 40 MG/0.4 ML SYR SC SCH (09:06)
[2018-02-05] MEDS: THIAMINE HCL 100 MG TAB TUBE SCH (09:06)
[2018-02-05] MEDS: FAMOTIDINE 20 MG TAB TUBE SCH ×2 (09:06→20:54)
[2018-02-05] MEDS: PROPRANOLOL HCL 40 MG TAB TUBE SCH ×3 (09:08→20:56)
[2018-02-05] MEDS: LORazepam 1 MG TAB TUBE PRN (12:29)
--- NOTE | 2018-02-05 13:53 | ASMTCMCOM ---
CM Note CM Note Notes: Telephone call with pt mother/proxy Samantha, she would be willing to consider rehab in [place] near her but pt cannot leave [place] as he has an active warrant, unknown what for and other legal issues. Samantha is in touch with [place] public works laborer office trying to assist with pt legal matters while he is in hospital. Samantha report she would have no money to contribute to the transport of pt to [place]. Samantha is willing to relocate to [place], reports if pt gets placed at [facility] inpatient acute she may move to son Adan's home in [place] and then get an apartment she and pt can reside in once pt was ready to d/c from a rehab. Claudette with [facility] sent updates, she has been in touch with [employer] and asked for [place] to "carve out" the payment for a sitter since they do not have any sitters at [facility]. [facility] told Claudette she would submit to medical legal investigator and we should know today. CM to follow. Date Signed: 02/05/2018 01:53 PM Electronically Signed By:CASSIDY Amezquita
--- NOTE | 2018-02-05 16:04 | ASMTCMCOM ---
CM Note CM Note Notes: Claudette Baird ([phone]) with [facility] reports they just got insurance authorization for inpatient acute rehab from [facility]. Claudette was not sure if the insurance "carved out" a sitter but reports that should not be a barrier and she also does not know if [facility] has the letter they have specifically requested from [facility] for payment. They can likely take pt tomorrow for admission. Claudette will complete an on-site and staff pt needs with her team in the morning and let CM know if they can accommodate his admission tomorrow. Date Signed: 02/05/2018 04:03 PM Electronically Signed By:CASSIDY Amezquita
--- NOTE | 2018-02-05 16:35 | ASMTCMCOM ---
CM Note CM Note Notes: Spoke with Samantha and she reported she is very overwhelmed. Claudette Baird with [facility] told her pt is authorized for 18 days inpatient rehab which greatly upsets her. Samantha says can give authorization for pt to go to [facility] but she does not know pt discharge plan. Samantha states she is not packing up yet to come to [place] and her family needs to now "step up" and help her. This CM re-iterated to Samantha the importance of engaging in the discharge planning conversation and demonstrate a willingness to work with discharge planners at [facility], it is only after some time at [facility] that Jeremiah's needs for d/c from that facility will be known. Spoke with Claudette Baird of [facility], she says she attempted to call pt mother Samantha to discuss d/c planning and Samantha indicated she was overwhelmed and would not discuss. Claudette reports she must take this information back to her team and this could be a huge barrier to pt admit. Claudette will try to talk to Samantha again in the morning. Date Signed: 02/05/2018 04:35 PM Electronically Signed By:CASSIDY Amezquita
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
[2018-02-05] MEDS: OLANZapine 10 MG TAB PO SCH (20:54)
[2018-02-06] MEDS: VANCOMYCIN 125 MG/2.5 ML UDL TUBE SCH ×5 (00:31→23:32)
[2018-02-06] MEDS: LORazepam 1 MG TAB TUBE PRN (03:56)
[2018-02-06] MEDS: AMANTADINE HCL 100 MG/10 ML UDCUP PO SCH ×2 (06:04→13:16)
[2018-02-06] MEDS: THIAMINE HCL 100 MG TAB TUBE SCH (09:48)
[2018-02-06] MEDS: ENOXAPARIN 40 MG/0.4 ML SYR SC SCH (09:48)
[2018-02-06] MEDS: FAMOTIDINE 20 MG TAB TUBE SCH ×2 (09:48→21:21)
[2018-02-06] MEDS: PROPRANOLOL HCL 40 MG TAB TUBE SCH ×3 (09:48→21:21)
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
[2018-02-06] MEDS: AMANTADINE HCL 100 MG/10 ML UDCUP TUBE SCH (12:22)
--- NOTE | 2018-02-06 17:09 | ASMTCMCOM ---
MICAH Note CM Note Notes: Spoke with Claudette at [facility] this morning. [facility] now concerned about patient's dispo plan from their facility after conversation with patient's mother on Sunday evening. CM spoke with patient's mother today to follow-up on conversation with [facility]. Patient's mother states she is trying to work with her son in [place] on possible options for support after rehab. Mother states there may be a possibility of her moving out here but she will not be able to move in the next thirty days. Mother has limited resources and it is not clear how much the family will be able to assist after 14-20 days of acute rehab. I have re-visisted the idea of SNF discharge by discussing the situation with Kandace at [facility]. Updates were sent to via Pocketbook. There may be a possibility of discharging patient to [facility] for two weeks and then [facility] taking patient from there - Claudette at [facility] open to this plan although they do not typically like to discharge to SNF. CM will follow-up with both Kandace at [facility] on . I have updated Dr. Ellis. MICAH will continue to work on this case. Date Signed: 02/06/2018 05:09 PM Electronically Signed By:Nica Alford RN
[2018-02-06] MEDS: OLANZapine 10 MG TAB PO SCH (21:21)
[2018-02-07] MEDS: AMANTADINE HCL 100 MG/10 ML UDCUP TUBE SCH ×2 (05:49→13:15)
[2018-02-07] MEDS: VANCOMYCIN 125 MG/2.5 ML UDL TUBE SCH ×3 (05:49→18:09)
[2018-02-07] MEDS: ENOXAPARIN 40 MG/0.4 ML SYR SC SCH (09:03)
[2018-02-07] MEDS: THIAMINE HCL 100 MG TAB TUBE SCH (09:03)
[2018-02-07] MEDS: PROPRANOLOL HCL 40 MG TAB TUBE SCH ×3 (09:03→21:20)
[2018-02-07] MEDS: FAMOTIDINE 20 MG TAB TUBE SCH ×2 (09:04→20:45)
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
--- NOTE | 2018-02-07 16:12 | ASMTCMCOM ---
CM Note CM Note Notes: Today [facility] acute rehab declines pt on the administrative level due to lack of discharge plan. This CM spoke with Samantha who reports she cannot commit to any d/c plan, the apartment she is considering moving to in [facility] will not be ready for 3-4 months and she cannot relocate to [place] within the next 30 days. Samantha reports she has not received the signature page of the brain injury waiver. left for pt brother Jacinta. Of note: Jacinta has not called this CM back in the past few weeks when voicemails have been left. Referral made to [facility]. Spoke with Jenni who encourages a sending them a referral and can talk to pt/mother now but their services are for when pt has completed a rehab program and is ready to integrate into the community, whether that be home or a residential placement. Jenni reports should pt require residential placement after rehab, pt substance use history could be a barrier as many programs do not admit individuals with this substance use. It is unknown where pt will be with his substance use and/or mental health when completing a rehab. left for staff at [facility]. It appears on their website they are similar to [facility] in they provide services for individuals to integrate or remain in the community. Kandace with [facility] came to complete on-site with pt today, she will staff this with her admin team and will let [facility] know tomorrow. At this time SNF most likely d/c plan. [facility], [facility] and [facility] can consider pt when off 1:1 and restraints. Pt is now tolerating regular diet. CM will continue to follow. Date Signed: 02/07/2018 04:11 PM Electronically Signed By:CASSIDY Amezquita
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
[2018-02-07] MEDS: OLANZapine 10 MG TAB TUBE SCH (20:45)
[2018-02-08] MEDS: VANCOMYCIN 125 MG/2.5 ML UDL TUBE SCH ×2 (00:19→05:38)
[2018-02-08] MEDS: LORazepam 1 MG TAB TUBE PRN (03:47)
[2018-02-08] MEDS: AMANTADINE HCL 100 MG/10 ML UDCUP TUBE SCH ×2 (05:38→12:55)
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
[2018-02-08] MEDS: PROPRANOLOL HCL 40 MG TAB TUBE SCH ×3 (10:19→21:18)
[2018-02-08] MEDS: THIAMINE HCL 100 MG TAB TUBE SCH (10:19)
[2018-02-08] MEDS: FAMOTIDINE 20 MG TAB TUBE SCH ×2 (10:19→21:18)
[2018-02-08] MEDS: ENOXAPARIN 40 MG/0.4 ML SYR SC SCH ×2 (10:19→10:25)
--- NOTE | 2018-02-08 14:42 | ASMTCMCOM ---
CM Note CM Note Notes: This CM spoke with pt mother/proxy Samantha this morning, she has not received the brain injury signature page in her mail. This CM sent the ULTC 100 to [facility] this afternoon without the pt/proxy signature and left a voicemail at [facility] explaining why. CM to follow. Date Signed: 02/08/2018 02:41 PM Electronically Signed By:CASSIDY Amezquita
--- NOTE | 2018-02-08 15:47 | ASMTCMCOM ---
CM Note CM Note Notes: Omari Latif with [facility] called this CM to report at this time [facility] would not complete a brain injury waiver assessment since pt is not ready to d/c to the community. The rehab/SNF pt discharges to from [facility] will need to submit the brain injury waiver when pt going to d/c from there. Pt will not d/c to SNF under Medicaid LTC either so [facility] has no need to assess pt now. If pt does need Medicaid LTC eventually, the SNF/rehab will have to submit ULTC-100. Date Signed: 02/08/2018 03:46 PM Electronically Signed By:CASSIDY Amezquita
[2018-02-08] MEDS: OLANZapine 10 MG TAB TUBE SCH (21:49)
[2018-02-09] MEDS: AMANTADINE HCL 100 MG/10 ML UDCUP TUBE SCH ×2 (05:34→13:04)
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
[2018-02-09] MEDS: THIAMINE HCL 100 MG TAB TUBE SCH (09:34)
[2018-02-09] MEDS: ENOXAPARIN 40 MG/0.4 ML SYR SC SCH (09:35)
[2018-02-09] MEDS: PROPRANOLOL HCL 40 MG TAB TUBE SCH ×3 (09:35→21:24)
[2018-02-09] MEDS: FAMOTIDINE 20 MG TAB TUBE SCH ×2 (09:35→21:26)
--- NOTE | 2018-02-09 11:09 | ASMTCMCOM ---
CM Note CM Note Notes: Violette from [facility] called ([phone]) to tell us that their MD is pursuing the appeal intiated by patient's mother/proxy Samantha (patient was denied LTAC). Patient was approved for acute inpatient rehab; however, before this approval, patient had been denied LTAC. Violette from [place] says that have to proceed with the appeal. She'll let us - and patient's mother - know the result. Date Signed: 02/09/2018 11:08 AM Electronically Signed By:Michelle Bonilla RN
--- NOTE | 2018-02-09 12:45 | ASMTCMCOM ---
CM Note CM Note Notes: Radha from [facility] called to say that they have overturned the appeal for LTAC for patient! Authorization # [id number]. I re-sent his referral to [facility] and called to give them a heads up. They won't be able to review until Sunday 02/11. I spoke with patient's mother Samantha who is despondant despite the good news. She is trying to relocate to [place] to be available for patient after rehab and feels that her other children are not helping her at all. She was teary and asked that we talk later. I think we should help her get connected with senior services in [place], if possible. She says her Section 8 voucher can be transferred from [place] to [place]; I advised her to speak with her family preservation caseworker in [place] about this. We will follow up with her. Date Signed: 02/09/2018 12:44 PM Electronically Signed By:Michelle Bonilla RN
[2018-02-09] MEDS: OLANZapine 10 MG TAB TUBE SCH (21:27)
[2018-02-10] MEDS: AMANTADINE HCL 100 MG/10 ML UDCUP TUBE SCH (05:00)
[2018-02-10] MEDS: PROPRANOLOL HCL 40 MG TAB TUBE SCH (10:07)
[2018-02-10] MEDS: ENOXAPARIN 40 MG/0.4 ML SYR SC SCH (10:08)
[2018-02-10] MEDS: FAMOTIDINE 20 MG TAB TUBE SCH (10:09)
[2018-02-10] MEDS: THIAMINE HCL 100 MG TAB TUBE SCH (10:09)
[2018-02-10] MEDS ORDERED: LACTULOSE 20 GM/30 ML UDCUP PO PRN (11:00)
[2018-02-10] MEDS ORDERED: POLYETHYLENE GLYCOL 3350 17 GM PKT PO PRN (11:00)
[2018-02-10] MEDS ORDERED: LOPERAMIDE HCL 1 MG/5 ML UDL PO PRN (11:00)
[2018-02-10] MEDS ORDERED: MAGNESIUM HYDROXIDE 30 ML UDCUP PO PRN (11:00)
[2018-02-10] MEDS: AMANTADINE HCL 100 MG/10 ML UDCUP PO SCH (13:32)
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
[2018-02-10] MEDS: PROPRANOLOL HCL 40 MG TAB PO SCH ×2 (17:17→22:16)
[2018-02-10] MEDS: LORazepam 1 MG TAB PO PRN (17:27)
[2018-02-10] MEDS: OLANZapine 10 MG TAB PO SCH (22:16)
[2018-02-10] MEDS: FAMOTIDINE 20 MG TAB PO SCH (22:20)
[2018-02-11] MEDS: AMANTADINE HCL 100 MG/10 ML UDCUP PO SCH ×2 (05:58→12:15)
[2018-02-11] MEDS: ENOXAPARIN 40 MG/0.4 ML SYR SC SCH (09:05)
[2018-02-11] MEDS: PROPRANOLOL HCL 40 MG TAB PO SCH ×3 (09:05→21:02)
[2018-02-11] MEDS: THIAMINE HCL 100 MG TAB PO SCH (09:05)
[2018-02-11] MEDS: FAMOTIDINE 20 MG TAB PO SCH ×2 (09:06→21:02)
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
--- NOTE | 2018-02-11 17:00 | ASMTCMCOM ---
CM Note CM Note Notes: Claudette with [facility] reports they are not willing to consider pt for LTAC even though [facility] has now authorized LTAC for the same reason they declined pt for inpatient acute rehab, no clear discharge plan from the facility. Iza [phone] with [facility] will complete on-site today. Lucas [phone] with [facility] reports they can likely accept pt, he will send clinicals to [facility] and needs to verify for himself [facility] has authorized LTAC level of care. Pt in consideration for the [facility] location [place] [address] Referral to [place] [facility] pending. Pt mother faxed brain injury waiver signature page, which is not necessary any longer since [facility] cannot assess pt for services until he is ready to d/c to the community. Spoke with pt mother Samantha, she approves of pt d/c to either [facility] or [facility]. Date Signed: 02/11/2018 04:59 PM Electronically Signed By:CASSIDY Amezquita
[2018-02-11] MEDS: LORazepam 1 MG TAB PO PRN (21:02)
[2018-02-11] MEDS: OLANZapine 10 MG TAB PO SCH (21:02)
[2018-02-12] MEDS: AMANTADINE HCL 100 MG/10 ML UDCUP PO SCH ×2 (05:48→11:53)
[2018-02-12] MEDS: LORazepam 1 MG TAB PO PRN ×3 (06:57→16:02)
[2018-02-12] MEDS: FAMOTIDINE 20 MG TAB PO SCH (09:42)
[2018-02-12] MEDS: PROPRANOLOL HCL 40 MG TAB PO SCH ×2 (09:42→15:23)
[2018-02-12] MEDS: THIAMINE HCL 100 MG TAB PO SCH (09:42)
[2018-02-12] MEDS: ENOXAPARIN 40 MG/0.4 ML SYR SC SCH (09:42)
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
--- NOTE | 2018-02-12 16:53 | ASMTCMCOM ---
CM Note CM Note Notes: Lucas with [facility] can accept pending insurance auth. [facility] submitted clinicals to [facility] for authorization and reached out to Nicki Larios ([facility] CM) who said pt is denied LTAC as he does not qualify medically. This CM called Nicki, provided the LTAC authorization [id number] [facility] received Sunday from [facility]. Nicki looks up this authorization and sees pt appeal granted and states she did not know and biomedical photographer Dr. Boucher probably does not know. Nicki states she does not know if there will be a challenge getting this approved changing the LTAC because the granted appeal identifies [facility] (who can no longer accept pt). Nicki calls Dr. Boucher with the information of the appeal and he reluctantly states he will raquel an LTAC authorization. Nicki needs [facility] to re-submit the authorization, which will likely not be reviewed until tomorrow. Lucas at [facility] updated and they will re-submit the request today. [facility] will have beds tomorrow at [facility]. Lucas states they typically do not accept pts 1:1 and will provide his team with details as to why pt needs sitter. CM to follow. Current d/c plan of care: [facility] pending [facility] insurance authorization. Date Signed: 02/12/2018 04:52 PM Electronically Signed By:CASSIDY Amezquita
[2018-02-13] MEDS: OLANZapine 10 MG TAB PO SCH (02:48)
[2018-02-13] MEDS: PROPRANOLOL HCL 40 MG TAB PO SCH ×2 (02:48→09:29)
[2018-02-13] MEDS: FAMOTIDINE 20 MG TAB PO SCH ×2 (02:48→09:27)
[2018-02-13] MEDS: AMANTADINE HCL 100 MG/10 ML UDCUP PO SCH ×2 (06:12→14:36)
--- NOTE | 2018-02-13 08:32 | TRAUMAPN ---
Trauma Progress Note - Problem/Surgery Performed (1) Skull fracture with cerebral contusion Assessment/Plan: clinically resolving coma post injury with return of speech and some memory remains weak on the right side Qualifiers: Encounter type: initial encounter Fracture type: open Qualified Code(s): S02.91XB - Unspecified fracture of skull, initial encounter for open fracture; S06.330A - Contusion and laceration of cerebrum, unspecified, without loss of consciousness, initial encounter; S06.330A - Contusion and laceration of cerebrum, unspecified, without loss of consciousness, initial encounter; S06.330A - Contusion and laceration of cerebrum, unspecified, without loss of consciousness, initial encounter Assessment/Plan: Clinically improved coma/stupor post injury able to eat without need for enteric feeding/PEG tube remains in place resolved C diff, off oral vanco Will request Rehab reassessment Medically cleared for transfer when bed available Objective: Vital Signs Temp Pulse Resp BP Pulse Ox 36.6 C 86 16 96/75 L 96 02/13/18 08:00 02/13/18 08:00 02/13/18 08:00 02/13/18 08:00 02/13/18 08:00 Laboratory Results 01/13/18 05:50 01/24/18 05:30 02/12/18 02/13/18 02/14/18 05:59 05:59 05:59 Intake Total 1560 1080 120 Output Total 1200 400 Balance 360 680 120 PT 13.7 SEC (12.0-15.0) 01/03/18 07:50 INR 1.03 (0.83-1.16) 01/03/18 07:50 - C-Spine Clearance Cervical Spine Cleared: Yes Provider who Cleared Cervical Spine: Lucas Physical Exam - Physical Exam General Appearance: alert, other (sitting up in chair/able to converse) Neck: non-tender, supple Cardiac/Chest: regular rate, rhythm Neuro/Psych: alert, motor weakness (right), depressed affect, other (able to read "Priti" written on white board/does not recognize other words though) Time Spent w/Patient (minutes): 15
[2018-02-13] MEDS ORDERED: SENNOSIDES/DOCUSATE SODIUM TAB PO SCH (09:00)
[2018-02-13] MEDS: ACETAMINOPHEN 325 MG TAB PO PRN ×2 (09:27→14:36)
[2018-02-13] MEDS: ENOXAPARIN 40 MG/0.4 ML SYR SC SCH (09:27)
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
--- NOTE | 2018-02-13 15:06 | PDIAF ---
- Diagnosis Diagnosis: skull fracture/intracerebral hemorrhage Code Status: Full Code - Medication Management Discharge Medications: Medications to Continue on Transfer Acetaminophen [Tylenol 325mg (*)] 650 mg PO Q4HRS PRN tab 02/13/18 [Last Taken Unknown] Enoxaparin [Lovenox 40 MG (*)] 40 mg SC DAILY syr 02/13/18 [Last Taken Unknown] Famotidine [Pepcid 20 MG (*)] 20 mg PO BID tab 02/13/18 [Last Taken Unknown] Ipratropium/Albuterol [Duoneb (*)] 3 ml IH QID PRN deyvial 02/13/18 [Last Taken Unknown] OLANZapine [OLANZapine (*)] 10 mg PO HS tab 02/13/18 [Last Taken Unknown] Polyethylene Glycol 3350 [Miralax 17 gm (*)] 17 gm PO DAILY PRN pkt 02/13/18 [ Last Taken Unknown] Propranolol HCl [Inderal 40mg (*)] 40 mg PO TID tab 02/13/18 [Last Taken Unknown] Sennosides/Docusate Sodium [Senokot-S] 1 tab PO BID tab 02/13/18 [Last Taken Unknown] Food Broker Antibiotics: none Discharge Medications: Refer to the Discharge Home Medication list for PRN reason. PICC Care - Routine: N/A - Orders Services needed: Registered Nurse, Master Music Therapy Specialist, Physical Therapy, Occupational Therapy, Speech Language Pathologist Isolation Type: CDIFF Isolation (most recent stool for C diff negative by PCR), Contact Isolation Diet Recommendation: no restrictions on diet Diet Texture: Regular Texture Diet, Thin Liquids, Meds Whole in Puree Tube feeding: PEG tube in place/tube feedings discontinued 02/08 Weigh Patient: weekly [place]: Not applicable Sutures/[place] Site: none Activity/Weight Bearing Restrictions: WBAT Additional Instructions: WBAT RLE post head injury precautions - Follow Up Care Current Providers and Referrals: Renato Cordero MD [Medical Doctor] - follow up as scheduled (Follow up in 4-6 weeks ) Patient,NotPresent [Primary Care Provider] - As per Instructions
--- NOTE | 2018-02-13 15:20 | SOAPPROG ---
Downtime Inpatient MD Late Entry SOAP Note: I was contacted by [facility] RN and Refrigerator Assembler that an LTAC bed has opened up and he has been accepted for transfer. I have spoken with Dr. Aubrey Jackson [phone] for a peer to peer handoff. His discharge med reconciliation and [facility] transfer documents have been completed. DSD #[id number]. S MD Lucas, FACS
[2018-02-13 16:09] VITALS: BP 117/67
--- NOTE | 2018-02-13 16:56 | ASMTCMCOM ---
CM Note CM Note Notes: Today [facility] [place] ([facility]) accepts pt. [facility] has provided [facility] with insurance authorization. Pt has been medically stable for d/c for weeks now. [facility] called report [phone]. Orders sent in [employer]. Dr. Zavala was provided [facility] Dr. Sampson number for doc to doc [phone]. [facility] transport scheduled for 1600, PCS copy in chart. Pt is conversing more now, he is following some commands. Pt requested this CM notify his son of the discharge, son Max contact information not in chart and a CM note indicates pt has been estranged from son for 10 years. Attempted to reach pt mother/proxy Samantha, had to leave messages. Samantha did already consent for d/c to [facility]. This CM will see if Samantha knows how to reach Max. Date Signed: 02/13/2018 04:56 PM Electronically Signed By:CASSIDY Amezquita
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
--- NOTE | 2018-02-14 12:03 | ASDISCHSUM ---
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 Salome Fam. Attempted to reach pt mother/proxy Samantha ([phone] or [phone]) this afternoon to discuss the potential for pt to do rehab in [place] close to her so she can participate in rehab and d/c planning. Did not receive a call back by close of business. No referrals sent yet, this does not want any [place] rehab calling Samantha before CM has a chance to discuss. There would also be logistical concerns mainly how to get pt to [place] as air transport can be quit costly. Quick [facility]) search shows numerous inpatient acute rehabs in [place] near where Samantha lives. Pt still on peg tube feeding and requiring a sitter. Pt brother Adan came to visit pt today. CM will continue to follow. Date Signed: 02/01/2018 04:51 PM Electronically Signed By:CASSIDY Amezquita [facility] MICAH Progress Note CM Tai OBRIEN Note Notes: Received call from [facility] requesting updated notes - sent this afternoon. Pt has tested negative for c-diff but still has a sitter. Date Signed: 02/04/2018 02:52 PM Electronically Signed By:CASSIDY Jackson [facility] Progress Note Note CM Note Notes: Telephone call with pt mother/proxy Samantha, she would be willing to consider rehab in [place] near her but pt cannot leave [place] as he has an active warrant, unknown what for and other legal issues. Samantha is in touch with [place] public affairs specialist office trying to assist with pt legal matters while he is in hospital. Samantha report she would have no money to contribute to the transport of pt to [place]. Samantha is willing to relocate to [place], reports if pt gets placed at [facility] inpatient acute she may move to son Adan's home in [place] and then get an apartment she and pt can reside in once pt was ready to d/c from a rehab. Claudette with [facility] sent updates, she has been in touch with [facility] and asked for [employer] to "carve out" the payment for a sitter since they do not have any sitters at [facility]. The [facility] told Claudette she would submit to medical legal investigator and we should know today. to follow. Date Signed: 02/05/2018 01:53 PM Electronically Signed By:CASSIDY Amezquita [facility] MICAH Progress Note Note Note Notes: Claudette Baird ([phone]) with [facility] reports they just got insurance authorization for inpatient acute rehab from [employer]. Claudette was not sure if the insurance "carved out" a sitter but reports that should not be a barrier and she also does not know if [facility] has the letter they have specifically requested from [employer] for payment. They can likely take pt tomorrow for admission. Claudette will complete an on-site and staff pt needs with her team in the morning and let CM know if they can accommodate his admission tomorrow. Date Signed: 02/05/2018 04:03 PM Electronically Signed By:CASSIDY Amezquita [facility] Progress Note CM Note CM Note Notes: Spoke with Samantha and she reported she is very overwhelmed. Claudette Torreselly with [facility] told her pt is authorized for 18 days inpatient rehab which greatly upsets her. Samantha says can give authorization for pt to go to [facility] but she does not know pt discharge plan. Samantha states she is not packing up yet to come to [place] and her family needs to now "step up" and help her. This CM re-iterated to Samantha the importance of engaging in the discharge planning conversation and demonstrate a willingness to work with discharge planners at [facility], it is only after some time at [facility] that Jeremiah's needs for d/c from that facility will be known. Spoke with Claudette Torreselly of [facility], she says she attempted to call pt mother Samantha to discuss d/c planning and Samantha indicated she was overwhelmed and would not discuss. Claudette reports she must take this information back to her team and this could be a huge barrier to pt admit. Claudette will try to talk to Samantha again in the morning. Date Signed: 02/05/2018 04:35 PM Electronically Signed By:CASSIDY Amezquita [facility] Progress Note CM Note CM Note Notes: Spoke with Claudette at [facility] this morning. [facility] now concerned about patient's dispo plan from their facility after conversation with patient's mother on Sunday evening. CM spoke with patient's mother today to follow-up on conversation with [facility]. Patient's mother states she is trying to work with her son in [place] on possible options for support after rehab. Mother states there may be a possibility of her moving out here but she will not be able to move in the next thirty days. Mother has limited resources and it is not clear how much the family will be able to assist after 14-20 days of acute rehab. I have re-visisted the idea of SNF discharge by discussing the situation with Kandace at [facility]. Updates were sent to via [employer]. There may be a possibility of discharging patient to [facility] for two weeks and then [facility] taking patient from there - Claudette at [facility] open to this plan although they do not typically like to discharge to SNF. MICAH will follow-up with both Kandace at [facility] on . I have updated Dr. Ellis. MICAH will continue to work on this case. Date Signed: 02/06/2018 05:09 PM Electronically Signed By:Nica Alford RN [facility] Progress Note CM Note CM Note Notes: Today [facility] acute rehab declines pt on the administrative level due to lack of discharge plan. This CM spoke with Samantha who reports she cannot commit to any d/c plan, the apartment she is considering moving to in [facility] will not be ready for 3-4 months and she cannot relocate to [place] within the next 30 days. Samantha reports she has not received the signature page of the brain injury waiver. left for pt brother Jacinta. Of note: Jacinta has not called this CM back in the past few weeks when voicemails have been left. Referral made to [facility]. Spoke with Jenni who encourages a sending them a referral and can talk to pt/mother now but their services are for when pt has completed a rehab program and is ready to integrate into the community, whether that be home or a residential placement. Jenni reports should pt require residential placement after rehab, pt substance use history could be a barrier as many programs do not admit individuals with this substance use. It is unknown where pt will be with his substance use and/or mental health when completing a rehab. JULY left for staff at [facility]. It appears on their website they are similar to [facility] in they provide services for individuals to integrate or remain in the community. Kandace with [facility] came to complete on-site with pt today, she will staff this with her admin team and will let [facility] know tomorrow. At this time SNF most likely d/c plan. [facility] and [facility] can consider pt when off 1:1 and restraints. Pt is now tolerating regular diet. CM will continue to follow. Date Signed: 02/07/2018 04:11 PM Electronically Signed By:CASSIDY Amezquita [facility] Progress Note CM Note CM Note Notes: This CM spoke with pt mother/proxy Samantha this morning, she has not received the brain injury signature page in her mail. This CM sent the ULTC 100 to [facility] this afternoon without the pt/proxy signature and left a voicemail at [facility] explaining why. CM to follow. Date Signed: 02/08/2018 02:41 PM Electronically Signed By:CASSIDY Amezquita [facility] CM Progress Note CM Note CM Note Notes: Omari Latif with [facility] called this CM to report at this time [facility] would not complete a brain injury waiver assessment since pt is not ready to d/c to the community. The rehab/SNF pt discharges to from [facility] will need to submit the brain injury waiver when pt going to d/c from there. Pt will not d/c to SNF under Medicaid LTC either so [facility] has no need to assess pt now. If pt does need Medicaid LTC eventually, the SNF/rehab will have to submit ULTC-100. Date Signed: 02/08/2018 03:46 PM Electronically Signed By:CASSIDY Amezquita [facility] CM Progress Note CM Note CM Note Notes: Violette from [facility] called ([phone]) to tell us that their MD is pursuing the appeal intiated by patient's mother/proxy Samantha (patient was denied LTAC). Patient was approved for acute inpatient rehab; however, before this approval, patient had been denied LTAC. Violette from [employer] says that have to proceed with the appeal. She'll let us - and patient's mother - know the result. Date Signed: 02/09/2018 11:08 AM Electronically Signed By:Michelle Bonilla RN [facility] CM Progress Note CM Note CM Note Notes: Radha from [facility] called to say that they have overturned the appeal for LTAC for patient! Authorization # [id number]. I re-sent his referral to [facility] and called to give them a heads up. They won't be able to review until Sunday 02/11. I spoke with patient's mother Samantha who is despondant despite the good news. She is trying to relocate to [place] to be available for patient after rehab and feels that her other children are not helping her at all. She was teary and asked that we talk later. I think we should help her get connected with senior services in [place], if possible. She says her Section 8 voucher [place]; I advised her to speak with her manager rn case in [place] about this. We will follow up with her. Date Signed: 02/09/2018 12:44 PM Electronically Signed By:Michelle Bonilla RN [facility] CM Progress Note CM Note CM Note Notes: Claudette with [facility] reports they are not willing to consider pt for LTAC even though [employer] has now authorized LTAC for the same reason they declined pt for inpatient acute rehab, no clear discharge plan from the facility. Iza [phone] with [facility] will complete on-site today. Lucas [phone] with [facility] reports they can likely accept pt, he will send clinicals to [employer] and needs to verify for himself [employer] [facility] has authorized LTAC level of care. Pt in consideration for the [facility] location [facility]. Referral to [place] [facility] pending. Pt mother faxed brain injury waiver signature page, which is not necessary any longer since [facility] cannot assess pt for services until he is ready to d/c to the community. Spoke with pt mother Samantha, she approves of pt d/c to either [facility] or [facility]. Date Signed: 02/11/2018 04:59 PM Electronically Signed By:CASSIDY Amezquita [facility] Progress Note CM Note CM Note Notes: Lucas with [facility] can accept pending insurance auth. [facility] submitted clinicals to [employer] for authorization and reached out to Nicki Larios ([facility]) who said pt is denied LTAC as he does not qualify medically. This CM called Nicki, provided the LTAC authorization [id number] [facility] received Sunday from [employer]. Nicki looks up this authorization and sees pt appeal granted and states she did not know and medical legal investigator Dr. Boucher probably does not know. Nicki states she does not know if there will be a challenge getting this approved changing the LTAC because the granted appeal identifies [facility] (who can no longer accept pt). Nicki calls Dr. Boucher with the information of the appeal and he reluctantly states he will raquel an LTAC authorization. Nicki needs [facility] to re-submit the authorization, which will likely not be reviewed until tomorrow. Lucas at [facility] updated and they will re-submit the request today. [facility] will have beds tomorrow at [facility]. Lucas states they typically do not accept pts 1:1 and will provide his team with details as to why pt needs sitter. CM to follow. Current d/c plan of care: [facility] pending [facility] insurance authorization. Date Signed: 02/12/2018 04:52 PM Electronically Signed By:CASSIDY Amezquita [facility] Progress Note CM Note CM Note Notes: Today [facility] LILLIAM M[facility] ([facility]) accepts pt. [facility] has provided [facility] with insurance authorization. Pt has been medically stable for d/c for weeks now. [facility] called report [phone]. Orders sent in [facility] ([facility] Dr. Zavala was provided [facility] Sampson number for doc to doc [phone]. [facility] transport scheduled for 1600, PCS copy in chart. Pt is conversing more now, he is following some commands. Pt requested this CM notify his son of the discharge, son Max contact information not in chart and a CM note indicates pt has been estranged from son for 10 years. Attempted to reach pt mother/proxy Samantha, had to leave messages. Samantha did already consent for d/c to [facility]. This CM will see if Samantha knows how to reach Max. Date Signed: 02/13/2018 04:56 PM Electronically Signed By:CASSIDY Amezquita [facility]
--- NOTE | 2018-02-16 20:33 | GOP ---
[f rep st] OPERATIVE REPORT DATE OF OPERATION: 01/16/2018 SURGEON: Darci Mott MD AUTOMOTIVE SERVICE DIRECTOR: Alexia Neumann, PAC. PREOPERATIVE DIAGNOSIS: Dislodged gastrostomy tube. POSTOPERATIVE DIAGNOSIS: PROCEDURE PERFORMED: Laparotomy with gastrostomy tube placement and repair of previous gastrotomy. FINDINGS: Patient was found to have a small hole near the greater curvature in the stomach which was not appreciably leaking much contamination. INDICATIONS: The patient is a severely brain-injured patient who has a 1st endoscopic G-tube placed, but pulled it out. This has not been able to be replaced successfully. DESCRIPTION OF PROCEDURE: The patient was taken to the operating room where he received a satisfacto ry general anesthetic by Dr. Dalton. The patient was prepped and draped in the usual sterile fashion . A short incision was made in the upper abdomen. The Veress needle was inserted. Pneumoperitoneum was established. A trocar was introduced. Laparoscope introduced. Good visualization was obtained . The recently placed repeat PEG tube was in place and anchored up to the abdominal wall. The previo us PEG tube placement wound was visualized. This was then repaired laparoscopically with 0 silk figu re-of-eight sutures. It was then tested with distention of the stomach with gas and saline, and ther e was no evidence of any leakage. Three total trocars were used. The trocars were removed under dir ect vision. Trocar sites were infiltrated with 0.5% Marcaine and closed with 4-0 Monocryl subcuticul ar stitch for the skin. He tolerated the procedure well. There were no complications. Taken to rec overy room in good condition. /[id number]/MODL
--- NOTE | 2018-02-18 13:45 | PQFORM ---
PHYSICIAN QUERY FORM Needs Your Response This query form is being sent to you to assure this patient record is coded properly. Please respond to the question below: WORKS MANAGER QUESTION: Dear Dr. Zavala, In reviewing this patient medical record it is noted patient held the diagnosis of 'respiratory failure.' Patient presented to the ER with a Jad scale of 5 and was Intubated due to respiratory failure and was kept on ventilator from 01/03-01/09. Noted in Dr. Lim's 01/04 consult patient was diagnosed with 'respiratory failure, with the recommendation of keeping patient on ventilator. In the Thoracic Medicine Specialist progress notes dated 01/06-01/15 patient was noted to be in "respiratory failure due to reduced level of consciousness." After study, should the diagnosis of 'Respiratory failure' be included in the Discharge summary? __x___ Yes No Unable to determine Other more appropriate diagnosis (please specify) Thank you ISIDRO Ayala HIM/Coding Dept. [phone] INSTRUCTIONS FOR RESPONSE: Answer question by clicking on the "Edit Document" button. Move cursor to area below the stars. When complete, hit "Save." Click on the "Sign" button, then click "Sign" again. Type in your PIN and hit "Enter." MTDD
== END 2018-02-13 16:47 | DRG 981 ==
LOC: EDUNIT# → F2N 10:23 → F3N 01-15 23:10
PROVIDERS: ADMIT Surgery; ATTEND Surgery
PROC: 5A1955Z Respiratory Ventilation, Greater than 96 Consecutive Hours (ICD-10-PCS; 2018-01-03)
PROC: 0HQ0XZZ Repair Scalp Skin, External Approach (ICD-10-PCS; 2018-01-03)
PROC: 0BH17EZ Insertion of Endotracheal Airway into Trachea, Via Natural or Artificial Opening (ICD-10-PCS; 2018-01-03)
PROC: 02HV33Z Insertion of Infusion Device into Superior Vena Cava, Percutaneous Approach (ICD-10-PCS; 2018-01-03)
PROC: 02H633Z Insertion of Infusion Device into Right Atrium, Percutaneous Approach (ICD-10-PCS; 2018-01-03)
PROC: 0B9F8ZZ Drainage of Right Lower Lung Lobe, Via Natural or Artificial Opening Endoscopic (ICD-10-PCS; 2018-01-06)
PROC: 0BC38ZZ Extirpation of Matter from Right Main Bronchus, Via Natural or Artificial Opening Endoscopic (ICD-10-PCS; 2018-01-06)
PROC: 0B978ZZ Drainage of Left Main Bronchus, Via Natural or Artificial Opening Endoscopic (ICD-10-PCS; 2018-01-09)
PROC: 0B918ZZ Drainage of Trachea, Via Natural or Artificial Opening Endoscopic (ICD-10-PCS; 2018-01-09)
PROC: 0B938ZZ Drainage of Right Main Bronchus, Via Natural or Artificial Opening Endoscopic (ICD-10-PCS; 2018-01-09)
PROC: 0D164J4 Bypass Stomach to Cutaneous with Synthetic Substitute, Percutaneous Endoscopic Approach (ICD-10-PCS; 2018-01-13)
PROC: 0DQ60ZZ Repair Stomach, Open Approach (ICD-10-PCS; 2018-01-16)
PROC: 0DW64UZ Revision of Feeding Device in Stomach, Percutaneous Endoscopic Approach (ICD-10-PCS; principal; 2018-01-16 13:00)
PROC: 0D163J4 Bypass Stomach to Cutaneous with Synthetic Substitute, Percutaneous Approach (ICD-10-PCS; 2018-01-28)
DX: S06.2X9A Diffuse traumatic brain injury with loss of consciousness of unspecified duration, initial encounter (principal); J96.90 Respiratory failure, unspecified, unspecified whether with hypoxia or hypercapnia; A04.72 Enterocolitis due to Clostridium difficile, not specified as recurrent; L89.151 Pressure ulcer of sacral region, stage 1; L30.8 Other specified dermatitis; R32 Unspecified urinary incontinence; R45.1 Restlessness and agitation; S02.91XA Unspecified fracture of skull, initial encounter for closed fracture; S02.32XA Fracture of orbital floor, left side, initial encounter for closed fracture; S02.40FA Zygomatic fracture, left side, initial encounter for closed fracture; S01.01XA Laceration without foreign body of scalp, initial encounter; S02.40DA Maxillary fracture, left side, initial encounter for closed fracture; R40.2431 Glasgow coma scale score 3-8, in the field [EMT or ambulance]; F10.20 Alcohol dependence, uncomplicated; F25.9 Schizoaffective disorder, unspecified; R13.10 Dysphagia, unspecified; S82.841D Displaced bimalleolar fracture of right lower leg, subsequent encounter for closed fracture with routine healing; I10 Essential (primary) hypertension; R91.1 Solitary pulmonary nodule; G47.33 Obstructive sleep apnea (adult) (pediatric); G40.909 Epilepsy, unspecified, not intractable, without status epilepticus; Z72.0 Tobacco use; Y93.9 Activity, unspecified; Z59.0 Homelessness; Z87.820 Personal history of traumatic brain injury; Y90.3 Blood alcohol level of 60-79 mg/100 ml
CPT/HCPCS: 80305; 82947-QW; 92507-GN; 92523-GN; 92526-GN; 92610-GN; 97110-GP; 97112-GO; 97112-GP; 97116-GP; 97163-GP; 97165-GO; 97530-GO; 97530-GP; 97535-GO; B4087; C1729; C1751; C1769; G0480; G0515-GO; G8978-GP-CL; G8978-GP-CM; G8979-GP-CK; G8979-GP-CL; G8987-GO-CM; G8987-GO-CN; G8988-GO-CK; G8988-GO-CL; G8996-GN-CL; G8997-GN-CJ; G8998-GN-CL; G9165-GN-CM; G9166-GN-CK; J0171; J0295; J0330; J0690; J1335; J1580; J1644; J1650; J1940; J1953; J2060; J2250; J2704; J2997; J3010; J3411; J3480; L0172; Q9967